=== PATIENT | female | born 1985 | race Caucasian/White ===

== ENCOUNTER 2017-05-02 07:02 | Emergency (ER) | payer BC ==
[2017-05-02 07:08] VITALS: O2SAT 100
--- NOTE | 2017-05-02 07:45 | ERPHSYRPT ---
- History of Present Illness Time Seen by Provider: 05/02/17 07:40 Source: patient Exam Limitations: no limitations Patient Subjective Stated Complaint: pt states she injured right foot while getting out of Jeep at work with morning. pt c/o pain to right heel. Triage Nursing Assessment: pt pink, warm,dry. no bruising or swelling to heel noted. pedal pulse strong. Physician History: The patient is a 31-year-old female who complains of hurting her right heel and the back part of her right foot when she jumped out of her jeep this morning. She thinks she may have landed on a rock. It hurts to walk on it. This happened about an hour ago. She did not take any Tylenol or ibuprofen for place ice on it. She has a past medical history of a ruptured ovarian cyst. Method of Injury: direct blow Occurred: just prior to arrival Quality: constant Severity of Pain-Max: mild Severity of Pain-Current: mild Lower Extremities Pain: foot: right Modifying Factors: Improves With: nothing Associated Symptoms: none Allergies/Adverse Reactions: prednisone Adverse Reaction (Verified 05/02/17 07:08) excessive weight gain Home Medications: Venlafaxine HCl [Effexor Xr] 150 mg PO DAILY 08/17/15 [History] Hx Tetanus, Diphtheria Vaccination/Date Given: Yes (up to date) Hx Influenza Vaccination/Date Given: Yes Hx Pneumococcal Vaccination/Date Given: No Immunizations Up to Date: Yes - Review of Systems Constitutional: No Fever, No Chills Eyes: No Symptoms Ears, Nose, & Throat: No Symptoms Respiratory: No Cough, No Dyspnea Cardiac: No Chest Pain, No Edema, No Syncope Abdominal/Gastrointestinal: No Abdominal Pain, No Nausea, No Vomiting, No Diarrhea Genitourinary Symptoms: No Dysuria Musculoskeletal: Injury Skin: No Symptoms, No Rash Neurological: No Dizziness, No Focal Weakness, No Sensory Changes Psychological: No Symptoms Endocrine: No Symptoms Hematologic/Lymphatic: No Symptoms Immunological/Allergic: No Symptoms All Other Systems: Reviewed and Negative - Past Medical History Pertinent Past Medical History: No Neurological History: No Pertinent History ENT History: No Pertinent History Cardiac History: No Pertinent History Respiratory History: No Pertinent History Endocrine Medical History: No Pertinent History Musculoskeletal History: No Pertinent History GI Medical History: No Pertinent History History: No Pertinent History Psycho-Social History: Anxiety, Depression Female Reproductive Disorders: No Pertinent History - Past Surgical History Past Surgical History: Yes Neuro Surgical History: No Pertinent History Cardiac: No Pertinent History Respiratory: No Pertinent History Gastrointestinal: No Pertinent History Genitourinary: No Pertinent History Musculoskeletal: Orthopedic Surgery Female Surgical History: No Pertinent History Other Surgical History: wrist - Social History Smoking Status: Current some day smoker How long have you smoked: 14 Exposure to second hand smoke: No Alcohol Use: Socially Drug Use: none Patient Lives Alone: No Significant Family History: no pertinent family hx - Female History Hx Last Menstrual Period: abnormal Hx Now: Yes (yes there could be possible) - Nursing Vital Signs Nursing Vital Signs: Initial Vital Signs Temperature 98.1 F 05/02/17 07:04 Pulse Rate 98 H 05/02/17 07:04 Respiratory Rate 20 05/02/17 07:04 Blood Pressure 143/73 05/02/17 07:04 O2 Sat by Pulse Oximetry 100 05/02/17 07:04 Pain Scale Pain Intensity 3 - Physical Exam General Appearance: alert Eyes, Ears, Nose, Throat Exam: moist mucous membranes Neck Exam: non-tender, supple Cardiovascular/Respiratory Exam: chest non-tender, normal breath sounds, regular rate/rhythm, no respiratory distress Gastrointestinal/Abdominal Exam: non-tender, guarding Back Exam: normal inspection, No vertebral tenderness Hips Exam: bilateral: non-tender, normal inspection Legs Exam: bilateral leg: non-tender, normal inspection Knees Exam: bilateral knee: non-tender, normal inspection Ankle Exam: bilateral ankle: non-tender, normal inspection Foot Exam: right foot: soft tissue tenderness, left foot: non-tender, normal inspection Neuro/Tendon Exam: normal sensation, normal motor functions Mental Status Exam: alert, oriented x 3, cooperative Skin Exam: normal color, warm, dry SpO2 Interpretation: normal SpO2: 100 Oxygen Delivery: Room Air - Radiology Exams Right Foot X-ray Interpretation: Teleradiologist Report, Negative, No Fracture (per DR Glass. ) Ordered Tests: Active Orders 24 hr Category Date Time Status Cold Application STAT Care 05/02/17 07:25 Active FOOT (MINIMUM 3 VIEWS) Stat Exams 05/02/17 07:47 Completed Medication Summary Discontinued Medications Generic Name Dose Route Start Last Admin Trade Name Freq PRN Reason Stop Dose Admin Ketorolac Tromethamine 60 mg 05/02/17 07:46 05/02/17 08:13 Toradol 30 Mg Injection IM 05/02/17 07:47 60 mg STAT ONE Administration Ketorolac Tromethamine Confirm 05/02/17 08:12 Toradol 30 Mg Injection Administered 05/02/17 08:13 Dose 60 mg .ROUTE .STK-MED ONE - Progress Progress: improved Counseled pt/family regarding: diagnosis, rad results - Departure Time of Disposition: 08:45 Departure Disposition: Home Clinical Impression: Right foot sprain Condition: Stable Critical Care Time: No Referrals: LALO MURILLO MD [Primary Care Provider] - Additional Instructions: You have a right foot sprain. You were given Toradol 60 mg IM in the ER. Continue with Tylenol and ibuprofen as needed. Follow-up as needed.
[2017-05-02] MEDS ORDERED: TORAdol 30 mg Injection IM ONE (07:46)
[2017-05-02] MEDS ORDERED: TORAdol 30 mg Injection ONE (08:12)
--- NOTE | 2017-05-02 08:36 | XRAY ---
Indication: Medial foot/heel pain following injury. Comparison: None 3 nonweightbearing views of the right foot demonstrates small heel spurs. No other bony, articular, or soft tissue abnormalities.
[2017-05-02 08:57] VITALS: BP 119/81; PULSE 88
== END 2017-05-02 08:57 | disposition home or self-care (01) ==
LOC: ED 07:02
DX: S93.601A Unspecified sprain of right foot, initial encounter (principal); Y93.39 Activity, other involving climbing, rappelling and jumping off
CPT/HCPCS: 73630; 96372; 99283; J1885

== ENCOUNTER 2018-02-03 20:22 | Emergency (ER) | payer OTHER ==
[2018-02-03] MEDS ORDERED: Zofran 4 MG/2 ML VIAL (21:05)
[2018-02-03] MEDS: Zofran 4 MG/2 ML VIAL IV (21:05)
[2018-02-03] MEDS ORDERED: Sodium Chloride 0.9% 1000 ML 1,000 ML ×2 (21:05→22:25)
[2018-02-03] MEDS: Sodium Chloride 0.9% 1000 ML 1,000 ML IV ×2 (21:06→22:31)
[2018-02-03 21:07] LABS: BASOPHIL % 0.2 % (0.0-0.4); Basophil (Absolute #) 0.02 (0-0.4); Eosinophil (Absolute #) 0 (0-0.5); Granulocyte Absolute (ANC) 11.31 (1.4-6.9); Hematocrit 47.7 % (35-47); Hemoglobin 16.7 gm/dl (12.0-16.0); Lymphocyte (Absolute #) 0.86 (1.0-4.6); Lymphocytes % 6.8 % (24.0-44.0); Mean Cell Volume 91.4 fl (78-100); Mean Platelet Volume 10.1 fl (6-9.5); Monocyte (Absolute #) 0.51 (0.0-1.3); Platelet Count 309 K/mm3 (150-450); Red Blood Count 5.22 M/mm3 (4.1-5.4); Red Cell Distribution Width 13.5 % (11.5-14.0); White Blood Count 12.7 K/mm3 (4.0-10.5)
[2018-02-03 21:10] LABS: Lactic Acid 1.7 (0.4-2.0)
[2018-02-03 21:23] LABS: ADD MANUAL DIFF? NO (NO); Mean Corpuscular Hemoglobin 31.9 pg (26-32)
[2018-02-03 21:31] LABS: ALKALINE PHOSPHATASE 75 U/L (38-126); AMYLASE 66 U/L (30-110); ANION GAP 23.7 MEQ/L (5-15); BLOOD UREA NITROGEN 18 mg/dL (7-17); CHLORIDE 97 mmol/L (98-107); Carbon Dioxide 22 mmol/L (22-30); Creatinine 1 0.74 mg/dL (0.52-1.04); EST GLOMERULAR FILTRATION RATE > 60.0 ML/MIN; Glucose 86 mg/dL (74-106); LIPASE 44 U/L (23-300); Potassium 4.4 mmol/L (3.5-5.1); SGOT/AST 40 U/L (14-36); SGPT/ALT 36 U/L (0-35); SODIUM 138 mmol/L (137-145); Total Protein 8.6 g/dL (6.3-8.2)
[2018-02-03 21:54] LABS: HCG QUALITATIVE,SERUM NEGATIVE (Negative)
[2018-02-03] MEDS ORDERED: TORAdol 30 mg Injection (22:25)
[2018-02-03] MEDS ORDERED: ROCEPHIN 1 Gm-D5w 50 ml Bag** 1 G/50 ML IVPB IV (22:25)
[2018-02-03] MEDS: ROCEPHIN 1 Gm-D5w 50 ml Bag** 1 G/50 ML IVPB IV (22:30)
[2018-02-03] MEDS: TORAdol 30 mg Injection IV (22:31)
[2018-02-03 22:55] LABS: Collection Type VOID
[2018-02-03 22:56] LABS: Appearance HAZY (CLEAR); Bacteria MODERATE /HPF (NEGATIVE); Bilirubin SMALL (NEGATIVE); Blood 250 Ery/ul (0-5); COMPLETE URINE MICROSCOPIC? YES; Epithelial Cells MODERATE /HPF (FEW); Glucose NEGATIVE (NEGATIVE); Ketones LARGE (NEGATIVE); Leukocyte Esterase NEGATIVE (NEGATIVE); Mucus MANY /HPF (NEGATIVE); Nitrite NEGATIVE (NEGATIVE); Protein,Urine Dip TRACE (Negative); Specific Gravity 1.025 (1.005-1.025); Urobilinogen NORMAL mg/dL (0-1)
[2018-02-03 22:59] LABS: ADD URINE CULTURE? YES (NO)
== END 2018-02-03 23:47 | disposition home or self-care (01) ==
LOC: ED 20:22
CPT/HCPCS: 36415; 80053; 81000; 82150; 83605; 83690; 84703; 85025; 87086; 96374; J0696; J1885; J2405

== ENCOUNTER 2018-08-26 08:08 | Emergency (ER) | payer MEDICAID, OTHER ==
[2018-08-26] MEDS ORDERED: DUONEB 0.5-3 MG/3 ml Neb IH ONE ×2 (08:14→08:27)
--- NOTE | 2018-08-26 08:17 | ERPHSYRPT ---
- History of Present Illness Time Seen by Provider: 08/26/18 08:12 Source: patient Exam Limitations: no limitations Physician History: 32 y/o white female, with no h/o asthma, presents with 5 day h/o cough, head congestion. this am at 0530 she was having sig soa. pts mother provided her with neb tx of albuterol. pt has h/o pneumonia in the past. denies cp and denies fever. no recent travel. no hemoptysis. no h/o blood clots. prednisone is not a true allergy. she had weight gain. pt has had solumedrol without problems in the past. Timing/Duration: day(s) (5), worse (this am) Activities at Onset: none Severity of Dyspnea-Max: moderate Severity of Dyspnea-Current: moderate Possible Cause: no prior episodes, illness exposure Modifying Factors: Improves With: albuterol nebulizer, coughing, deep breath Associated Symptoms: cough, No chest pain/discomfort, No fever, No loss of appetite, No hemoptysis, No calf pain, No dizziness, No heaviness, No lightheadedness Allergies/Adverse Reactions: prednisone Adverse Reaction (Verified 08/26/18 08:38) excessive weight gain Home Medications: Venlafaxine HCl [Effexor Xr] 150 mg PO DAILY 08/17/15 [History] Hx Tetanus, Diphtheria Vaccination/Date Given: Yes Hx Influenza Vaccination/Date Given: Yes Hx Pneumococcal Vaccination/Date Given: No - Review of Systems Constitutional: No Symptoms, No Fever Eyes: No Symptoms Ears, Nose, & Throat: No Symptoms Respiratory: Cough, Dyspnea, Wheezing, No Stridor Cardiac: No Symptoms, No Chest Pain, No Palpitations, No Syncope Abdominal/Gastrointestinal: No Symptoms, No Abdominal Pain, No Nausea, No Vomiting, No Diarrhea Genitourinary Symptoms: No Symptoms, No Dysuria, No Frequency, No Hematuria Musculoskeletal: No Symptoms, No Back Pain, No Fall, No Injury Skin: No Symptoms Neurological: No Symptoms Psychological: No Symptoms Endocrine: No Symptoms Hematologic/Lymphatic: No Symptoms Immunological/Allergic: No Symptoms All Other Systems: Reviewed and Negative - Past Medical History Pertinent Past Medical History: No Neurological History: No Pertinent History ENT History: No Pertinent History Cardiac History: No Pertinent History Respiratory History: No Pertinent History Endocrine Medical History: No Pertinent History Musculoskeletal History: No Pertinent History GI Medical History: No Pertinent History History: No Pertinent History Psycho-Social History: Anxiety, Depression Female Reproductive Disorders: No Pertinent History - Past Surgical History Past Surgical History: Yes Neuro Surgical History: No Pertinent History Cardiac: No Pertinent History Respiratory: No Pertinent History Gastrointestinal: No Pertinent History Genitourinary: No Pertinent History Musculoskeletal: Orthopedic Surgery Female Surgical History: No Pertinent History Other Surgical History: wrist - Social History Smoking Status: Current every day smoker How long have you smoked: 15 Exposure to second hand smoke: Yes Alcohol Use: Socially Drug Use: none Patient Lives Alone: No Significant Family History: no pertinent family hx - Nursing Vital Signs Nursing Vital Signs: Initial Vital Signs Pulse Rate 101 H 08/26/18 08:27 Respiratory Rate 28 H 08/26/18 08:27 O2 Sat by Pulse Oximetry 99 08/26/18 08:27 Pain Scale Pain Intensity 6 - Physical Exam General Appearance: moderate distress, alert, anxiety Eye Exam: PERRL/EOMI, eyes nml inspection Ears, Nose, Throat Exam: hearing grossly normal, normal ENT inspection Neck Exam: normal inspection, non-tender, supple, full range of motion Respiratory Exam: respiratory distress (mild), airway intact, diminished breath sounds, wheezing, No chest tenderness, No accessory muscle use, No rhonchi, No stridor Cardiovascular/Chest Exam: normal heart sounds, tachycardia Abdominal/Gastrointestinal Exam: soft, normal bowel sounds, No tenderness, No distention, No mass, No guarding, No rebound Rectal Exam: not done Extremity Exam: non-tender, normal range of motion, normal inspection Neurologic Exam: alert, oriented x 3, cooperative, converter supervisor 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 as tested Skin Exam: normal color, warm, dry Lymphatic Exam: No adenopathy SpO2 Interpretation: normal Oxygen Delivery: Room Air - Course Nursing assessment & vital signs reviewed: Yes Ordered Tests: Active Orders 24 hr Category Date Time Status Instructional Material Director STAT Care 08/26/18 08:24 Active IV Insertion STAT Care 08/26/18 08:23 Active Pulse Oximetry (ED) STAT Care 08/26/18 08:23 Active CHEST 1 VIEW (PORTABLE) Stat Exams 08/26/18 08:23 Taken CBC W DIFF Stat Lab 08/26/18 08:30 Completed CMP Stat Lab 08/26/18 08:30 Completed D-DIMER QUANTITATION Stat Lab 08/26/18 08:30 Completed Respiratory Nebulizer STAT RT 08/26/18 08:27 Completed Respiratory Therapy Assessment DAILY RT 08/26/18 08:27 Completed Medication Summary Discontinued Medications Generic Name Dose Route Start Last Admin Trade Name Blade PRN Reason Stop Dose Admin Hydrocodone Bitart/Acetaminophen Confirm 08/26/18 08:20 Hydrocodone-Acetamin 2.5-108/5 Ml Solution Administered 08/26/18 08:21 Dose 10 ml .ROUTE .STK-MED ONE Hydrocodone Bitart/Acetaminophen 10 ml 08/26/18 08:24 08/26/18 08:29 Hydrocodone-Acetamin 2.5-108/5 Ml Solution PO 08/26/18 08:25 10 ml STAT STA Administration Albuterol/Ipratropium Confirm 08/26/18 08:14 Duoneb 0.5-3 Mg/3 Ml Neb Administered 08/26/18 08:15 Dose 3 ml IH .STK-MED ONE Albuterol/Ipratropium 3 ml 08/26/18 08:27 08/26/18 08:20 Duoneb 0.5-3 Mg/3 Ml Neb IH 08/26/18 08:28 3 ml STAT ONE Administration Ceftriaxone Sodium/Dextrose 1 g in 50 mls @ 100 mls/hr 08/26/18 09:09 09:31 Rocephin 1 Gm-D5w 50 Ml Bag IV 08/26/18 09:38 100 mls/hr STAT STA 100 mls/hr Administration Ceftriaxone Sodium/Dextrose Confirm 08/26/18 09:27 Rocephin 1 Gm-D5w 50 Ml Bag Administered 08/26/18 09:28 Dose 1 g in 50 mls @ ud IV .STK-MED ONE Methylprednisolone Sodium Succinate Confirm 08/26/18 08:20 Solu-Medrol 125 Mg Administered 08/26/18 08:21 Dose 125 mg .ROUTE .STK-MED ONE Methylprednisolone Sodium Succinate 125 mg 08/26/18 08:23 08/26/18 08:29 Solu-Medrol 125 Mg IV 08/26/18 08:24 125 mg STAT ONE Administration Lab/Rad Data: Laboratory Result Diagrams 08/26/18 08:30 08/26/18 08:30 Laboratory Results 08/26/18 08/26/18 08/26/18 Range/Units 08:30 08:30 08:30 WBC (4.0-10.5) K/mm3 RBC (4.1-5.4) M/mm3 Hgb (12.0-16.0) gm/dl Hct (35-47) % MCV (78-100) fl MCH (26-32) pg MCHC (32-36) g/dl RDW (11.5-14.0) % Plt Count (150-450) K/mm3 MPV (6-9.5) fl Gran % (36.0-66.0) % Eos # (Auto) (0-0.5) Absolute Lymphs (auto) (1.0-4.6) Absolute Monos (auto) (0.0-1.3) Lymphocytes % (24.0-44.0) % Monocytes % (0.0-12.0) % Eosinophils % (0.00-5.0) % Basophils % (0.0-0.4) % Absolute Granulocytes (1.4-6.9) Basophils # (0-0.4) D-Dimer 231 (215-500) ng/mL Sodium 142 (137-145) mmol/L Potassium 3.8 (3.5-5.1) mmol/L Chloride 109 H (98-107) mmol/L Carbon Dioxide 23 (22-30) mmol/L Anion Gap 13.4 (5-15) MEQ/L BUN 7 (7-17) mg/dL Creatinine 0.65 (0.52-1.04) mg/dL Estimated GFR > 60.0 ML/MIN Glucose 104 (74-106) mg/dL Calcium 10.3 H (8.4-10.2) mg/dL Total Bilirubin 0.20 (0.2-1.3) mg/dL AST 26 (14-36) U/L ALT 22 (0-35) U/L Alkaline Phosphatase 80 (38-126) U/L Serum Total Protein 8.2 (6.3-8.2) g/dL Albumin 4.9 (3.5-5.0) g/dL Influenza Type A Ag NEGATIVE (NEGATIVE) Influenza Type B Ag NEGATIVE (NEGATIVE) RSV (PCR) NEGATIVE (Negative) 08/26/18 Range/Units 08:30 WBC 11.1 H (4.0-10.5) K/mm3 RBC 4.90 (4.1-5.4) M/mm3 Hgb 15.4 (12.0-16.0) gm/dl Hct 45.6 (35-47) % MCV 93.1 (78-100) fl MCH 31.4 (26-32) pg MCHC 33.8 (32-36) g/dl RDW 13.2 (11.5-14.0) % Plt Count 357 (150-450) K/mm3 MPV 10.2 H (6-9.5) fl Gran % 70.9 H (36.0-66.0) % Eos # (Auto) 0.59 H (0-0.5) Absolute Lymphs (auto) 2.05 (1.0-4.6) Absolute Monos (auto) 0.55 (0.0-1.3) Lymphocytes % 18.5 L (24.0-44.0) % Monocytes % 5.0 (0.0-12.0) % Eosinophils % 5.3 H (0.00-5.0) % Basophils % 0.3 (0.0-0.4) % Absolute Granulocytes 7.87 H (1.4-6.9) Basophils # 0.03 (0-0.4) D-Dimer (215-500) ng/mL Sodium (137-145) mmol/L Potassium (3.5-5.1) mmol/L Chloride (98-107) mmol/L Carbon Dioxide (22-30) mmol/L Anion Gap (5-15) MEQ/L BUN (7-17) mg/dL Creatinine (0.52-1.04) mg/dL Estimated GFR ML/MIN Glucose (74-106) mg/dL Calcium (8.4-10.2) mg/dL Total Bilirubin (0.2-1.3) mg/dL AST (14-36) U/L ALT (0-35) U/L Alkaline Phosphatase (38-126) U/L Serum Total Protein (6.3-8.2) g/dL Albumin (3.5-5.0) g/dL Influenza Type A Ag (NEGATIVE) Influenza Type B Ag (NEGATIVE) RSV (PCR) (Negative) - Progress Progress: improved, re-examined Air Movement: good Progress Note: 08/26/18 09:07 pt states she is breathing better. cxr- increased bronchial markings. no definite infiltrate. Blood Culture(s) Obtained: No Antibiotics given: Yes Counseled pt/family regarding: lab results, diagnosis, need for follow-up, rad results - Departure Time of Disposition: 10:43 Departure Disposition: Home Clinical Impression: Bronchitis Condition: Stable Critical Care Time: No Referrals: KARO ESTRADA [Primary Care Provider] - Additional Instructions: take medications as prescribed. follow up with primary doctor for further management. Prescriptions: Albuterol 8 gm Mdi Hfa [Ventolin Hfa MDI] 8 gm IH Q4H #1 hfa.aer.ad Azithromycin 250 mg [Zithromax 250 MG TABLET] 250 mg PO ZPACK #6 tablet Hydrocodone Bit/Acetaminophen [Hydrocodone-Acetaminophen Soln] 10 ml PO Q6H # 120 ml Methylprednisolone Packet [Medrol Dosepack] 4 mg PO UD #1 packet
[2018-08-26] MEDS ORDERED: solu-MEDROL 125 MG ONE (08:20)
[2018-08-26] MEDS ORDERED: HYDROCODONE-ACETAMIN 2.5-108/5 ML SOLUTION ONE (08:20)
[2018-08-26] MEDS ORDERED: solu-MEDROL 125 MG IV ONE (08:23)
[2018-08-26] MEDS ORDERED: HYDROCODONE-ACETAMIN 2.5-108/5 ML SOLUTION PO STA (08:24)
[2018-08-26 08:44] LABS: BASOPHIL % 0.3 % (0.0-0.4); Basophil (Absolute #) 0.03 (0-0.4); Eosinophil % 5.3 % (0.00-5.0); Eosinophil (Absolute #) 0.59 (0-0.5); Granulocyte Absolute (ANC) 7.87 (1.4-6.9); Granulocytes % 70.9 % (36.0-66.0); Hematocrit 45.6 % (35-47); Hemoglobin 15.4 gm/dl (12.0-16.0); Lymphocyte (Absolute #) 2.05 (1.0-4.6); Lymphocytes % 18.5 % (24.0-44.0); Mean Cell Volume 93.1 fl (78-100); Mean Corpuscular Hemoglobin 31.4 pg (26-32); Mean Corpuscular Hgb Concent. 33.8 g/dl (32-36); Mean Platelet Volume 10.2 fl (6-9.5); Monocyte (Absolute #) 0.55 (0.0-1.3); Platelet Count 357 K/mm3 (150-450); Red Cell Distribution Width 13.2 % (11.5-14.0); White Blood Count 11.1 K/mm3 (4.0-10.5)
[2018-08-26] MEDS ORDERED: ROCEPHIN 1 Gm-D5w 50 ml Bag** 1 G/50 ML IVPB IV STA (09:09)
[2018-08-26] MEDS ORDERED: ROCEPHIN 1 Gm-D5w 50 ml Bag** 1 G/50 ML IVPB IV ONE (09:27)
[2018-08-26 09:31] LABS: INFLUENZA A NEGATIVE (NEGATIVE); INFLUENZA B NEGATIVE (NEGATIVE); RESPIRATORY SYNCTIAL VIRUS NEGATIVE (Negative)
[2018-08-26 10:04] LABS: ALBUMIN 4.9 g/dL (3.5-5.0); ALKALINE PHOSPHATASE 80 U/L (38-126); ANION GAP 13.4 MEQ/L (5-15); BLOOD UREA NITROGEN 7 mg/dL (7-17); CHLORIDE 109 mmol/L (98-107); Calcium 10.3 mg/dL (8.4-10.2); Carbon Dioxide 23 mmol/L (22-30); Creatinine 1 0.65 mg/dL (0.52-1.04); Glucose 104 mg/dL (74-106); Potassium 3.8 mmol/L (3.5-5.1); SGOT/AST 26 U/L (14-36); SGPT/ALT 22 U/L (0-35); SODIUM 142 mmol/L (137-145); Total Protein 8.2 g/dL (6.3-8.2)
[2018-08-26 10:43] VITALS: BP 109/72; PULSE 90; O2SAT 95
--- NOTE | 2018-08-26 18:39 | XRAY ---
Indication: Cough and short of breath. Comparison: June 05, 2016. Portable chest again demonstrates normal heart, lungs, and bony thorax.
== END 2018-08-26 11:11 | disposition home or self-care (01) ==
LOC: ED 08:08
DX: J40 Bronchitis, not specified as acute or chronic (principal)
CPT/HCPCS: 36000; 36415; 71045; 80053; 85025; 85379; 87631; 93041; 94640; 96374; 99284; J0696; J2930; A9270-GY

== ENCOUNTER 2020-12-03 03:22 | Emergency (ER) | payer OTHER ==
[2020-12-03] MEDS ORDERED: BABY ASPIRIN 81 MG CHEW PO ONE (03:43)
--- NOTE | 2020-12-03 03:43 | ERPHSYRPT ---
- History of Present Illness Time Seen by Provider: 12/03/20 03:35 Historian: patient Exam Limitations: clinical condition Patient Subjective Stated Complaint: pt states she woke up with a high heart rate. states she has had chest paina nd shortness of breath with it. Triage Nursing Assessment: pt alert and oriented, answers questions approp. pt ambulatory with steady gait noted. respriations tachy, lungs cta. heart rate 130's sinus tach on monitor. pt tearful at times. skin pink warma nd dry. Physician History: This is a 35-year-old obese white female who is under a lot of stress and had a recent break-up (within the last 2 months) while long-term relationship. She had been in [place] in [place] and then the break-up occurred and she returned home. Patient woke up out of sleep with rapid heart rate and then began noticing she is having chest pain perioral numbness as well as numbness and tingling in her bilateral hands and fingers. Patient does have a history of sinus tachycardia. She has had no fevers no cough she is not short of breath. She did feel nauseated and had an episode of vomitus in the emergency department upon arrival. She has no abdominal pain. She has no urinary issues or symp toms. The chest pain is left anterior chest in location without radiation. It is a mild ache but present. Timing/Duration: today Activities at Onset: emotional stress, sleep Quality: aching, pressure Location: other (Left anterior chest wall) Chest Pain Radiation: no radiation Severity of Pain-Max: mild Severity of Pain-Current: mild Associated Symptoms: nausea, vomiting, palpitations, No abdominal pain, No shortness of breath, No cough, No diaphoresis Nitro Today/Relief: no nitro taken today Aspirin Treatment Today: no aspirin today Allergies/Adverse Reactions: prednisone Adverse Reaction (Verified 12/03/20 03:36) excessive weight gain Home Medications: Hydroxyzine HCl 25 mg [Atarax 25 mg] 25 mg PO BID 12/03/20 [History] Metoprolol Succinate 25 mg Xl* [Toprol-Xl 25MG Tablets] 25 mg PO DAILY 12/03/20 [History] Hx Tetanus, Diphtheria Vaccination/Date Given: Yes Hx Influenza Vaccination/Date Given: No Hx Pneumococcal Vaccination/Date Given: No Immunizations Up to Date: Yes Travel Risk - International Travel Have you traveled outside of the country in past 3 weeks: No - Coronavirus Screening Are you exhibiting any of the following symptoms?: No Close contact with a COVID-19 positive Pt in past 14-21 Days: No - Review of Systems Constitutional: No Symptoms Eyes: No Symptoms Ears, Nose, & Throat: No Symptoms Respiratory: No Symptoms Cardiac: Chest Pain, Palpitations Abdominal/Gastrointestinal: Nausea, Vomiting, No Abdominal Pain, No Diarrhea Genitourinary Symptoms: No Symptoms Musculoskeletal: No Symptoms Skin: No Symptoms Neurological: No Symptoms Psychological: No Symptoms Endocrine: No Symptoms Hematologic/Lymphatic: No Symptoms Immunological/Allergic: No Symptoms All Other Systems: Reviewed and Negative - Past Medical History Pertinent Past Medical History: No Neurological History: No Pertinent History ENT History: No Pertinent History Cardiac History: Other Respiratory History: No Pertinent History Endocrine Medical History: No Pertinent History Musculoskeletal History: No Pertinent History GI Medical History: No Pertinent History History: No Pertinent History Psycho-Social History: Anxiety, Depression Female Reproductive Disorders: No Pertinent History Other Medical History: tachycardia - Past Surgical History Past Surgical History: Yes Neuro Surgical History: No Pertinent History Cardiac: No Pertinent History Respiratory: No Pertinent History Gastrointestinal: No Pertinent History Genitourinary: No Pertinent History Musculoskeletal: Orthopedic Surgery Female Surgical History: No Pertinent History Other Surgical History: lt wrist, lt ankle - Social History Smoking Status: Current every day smoker How long have you smoked: 15 Exposure to second hand smoke: Yes Alcohol Use: Socially Drug Use: none Patient Lives Alone: No Significant Family History: no pertinent family hx - Female History Hx Last Menstrual Period: iud- no periods Hx Now: No - Nursing Vital Signs Nursing Vital Signs: Initial Vital Signs Temperature 98.6 F 12/03/20 03:25 Pulse Rate 130 H 12/03/20 03:25 Respiratory Rate 24 12/03/20 03:25 Blood Pressure 140/106 12/03/20 03:25 O2 Sat by Pulse Oximetry 99 12/03/20 03:25 Pain Scale Pain Intensity 2 - Physical Exam General Appearance: mild distress, alert, anxiety, obese Eye Exam: PERRL/EOMI, eyes nml inspection Ears, Nose, Throat Exam: normal ENT inspection, moist mucous membranes Neck Exam: normal inspection, non-tender, supple, full range of motion Respiratory Exam: normal breath sounds, chest tenderness, lungs clear, airway intact, No respiratory distress Cardiovascular Exam: tachycardia Gastrointestinal/Abdomen Exam: soft, normal bowel sounds, No tenderness Pelvic Exam: not done Rectal Exam: not done Extremity Exam: normal inspection, normal range of motion, pelvis stable Neurologic Exam: alert, oriented x 3, cooperative, dispatch 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 II-XII nml as tested, normal mood/affect, nml cerebellar function, nml station & gait, sensation nml Skin Exam: normal color, warm, dry Lymphatic Exam: No adenopathy SpO2 Interpretation: normal SpO2: 99 O2 Delivery: Room Air - Course Nursing assessment & vital signs reviewed: Yes EKG Interpreted by Me: RATE (135), Sinus Tach, NORMAL AXIS, NORMAL INTERVALS, NORMAL QRS, Other (No comparison EKG) Ordered Tests: Active Orders 24 hr Category Date Time Status Home Economist STAT Care 12/03/20 03:44 Active EKG-ER Only STAT Care 12/03/20 03:43 Active IV Insertion STAT Care 12/03/20 03:43 Active Pulse Oximetry (ED) STAT Care 12/03/20 03:43 Active CBC W DIFF Stat Lab 12/03/20 04:10 Completed CMP Stat Lab 12/03/20 04:10 Completed D-DIMER QUANTITATIVE Stat Lab 12/03/20 04:10 Completed HCG,QUALITATIVE URINE Stat Lab 12/03/20 03:44 Completed NT PRO BNP Stat Lab 12/03/20 04:10 Completed T4 (Thyroxine) Stat Lab 12/03/20 03:46 Received TROPONIN Q3H Lab 12/03/20 04:10 Completed TROPONIN Q3H Lab 12/03/20 06:45 Ordered TROPONIN Q3H Lab 12/03/20 09:45 Ordered TROPONIN Q3H Lab 12/03/20 12:45 Ordered TROPONIN Q3H Lab 12/03/20 15:45 Ordered TSH [TSH, 3RD Generation] Stat Lab 12/03/20 03:46 Received Urine Triage Profile Stat Lab 12/03/20 03:44 Completed Medication Summary Generic Name Dose Route Start Last Admin Trade Name Freq PRN Reason Stop Dose Admin Sodium Chloride 1,000 mls @ 100 mls/hr 12/03/20 04:00 12/03/20 03:59 Sodium Chloride 0.9% 1000 Ml IV 01/02/21 03:59 100 mls/hr .Q10H MANNIE Administration Discontinued Medications Generic Name Dose Route Start Last Admin Trade Name Freq PRN Reason Stop Dose Admin Aspirin 324 mg 12/03/20 03:43 12/03/20 04:00 Baby Aspirin 81 Mg Chew PO 12/03/20 03:44 324 mg STAT ONE Administration Aspirin Confirm 12/03/20 03:53 Baby Aspirin 81 Mg Chew Administered 12/03/20 03:54 Dose 324 mg .ROUTE .STK-MED ONE Lorazepam 1 mg 12/03/20 03:46 12/03/20 03:59 Ativan 2 Mg/1 Ml Vial IV 12/03/20 03:47 1 mg STAT ONE Administration Lorazepam Confirm 12/03/20 03:53 Ativan 2 Mg/1 Ml Vial Administered 12/03/20 03:54 Dose 2 mg .ROUTE .STK-MED ONE Metoprolol Tartrate 5 mg 12/03/20 05:43 12/03/20 05:51 Lopressor 5 Mg/5 Ml Injection IV 12/03/20 05:44 5 mg STAT ONE Administration Metoprolol Tartrate Confirm 12/03/20 05:45 Lopressor 5 Mg/5 Ml Injection Administered 12/03/20 05:46 Dose 5 mg IV .STK-MED ONE Ondansetron HCl 4 mg 12/03/20 03:53 12/03/20 03:59 Zofran 4 Mg/2 Ml Vial IV 12/03/20 03:54 4 mg STAT ONE Administration Ondansetron HCl Confirm 12/03/20 03:54 Zofran 4 Mg/2 Ml Vial Administered 12/03/20 03:55 Dose 4 mg .ROUTE .STK-MED ONE Lab/Rad Data: Laboratory Result Diagrams 12/03/20 04:10 12/03/20 04:10 Laboratory Results 12/03/20 12/03/20 12/03/20 Range/Units 04:10 04:10 04:10 WBC (4.0-10.5) K/mm3 RBC (4.1-5.4) M/mm3 Hgb (12.0-16.0) gm/dl Hct (35-47) % MCV (78-100) fl MCH (26-32) pg MCHC (32-36) g/dl RDW (11.5-14.0) % Plt Count (150-450) K/mm3 MPV (7.5-11.0) fl Gran % (36.0-66.0) % Eos # (Auto) (0-0.5) Absolute Lymphs (auto) (1.0-4.6) Absolute Monos (auto) (0.0-1.3) Lymphocytes % (24.0-44.0) % Monocytes % (0.0-12.0) % Eosinophils % (0.00-5.0) % Basophils % (0.0-0.4) % Absolute Granulocytes (1.4-6.9) Basophils # (0-0.4) D-Dimer < 215 L (215-500) ng/mL Sodium 137 (137-145) mmol/L Potassium 3.4 L (3.5-5.1) mmol/L Chloride 96 L (98-107) mmol/L Carbon Dioxide 25 (22-30) mmol/L Anion Gap 19.4 H (5-15) MEQ/L BUN 12 (7-17) mg/dL Creatinine 0.76 (0.52-1.04) mg/dL Estimated GFR > 60.0 ML/MIN Glucose 132 H (74-106) mg/dL Calcium 9.5 (8.4-10.2) mg/dL Total Bilirubin 1.00 (0.2-1.3) mg/dL AST 120 H (14-36) U/L ALT 76 H (0-35) U/L Alkaline Phosphatase 108 (38-126) U/L Troponin I < 0.012 (0.000-0.034) ng/mL NT-Pro-B Natriuret Pep 59.3 (0-450) pg/mL Serum Total Protein 8.0 (6.3-8.2) g/dL Albumin 4.6 (3.5-5.0) g/dL Urine HCG, Qual (Negative) Urine Opiates Level (NEGATIVE) Ur Methadone (NEGATIVE) Urine Barbiturates (NEGATIVE) Ur Phencyclidine (PCP) (NEGATIVE) Urine Amphetamine (NEGATIVE) U Benzodiazepine Level (NEGATIVE) Urine Cocaine (NEGATIVE) Urine Marijuana (THC) (NEGATIVE) 12/03/20 12/03/20 12/03/20 Range/Units 04:10 03:44 03:44 WBC 9.3 (4.0-10.5) K/mm3 RBC 4.45 (4.1-5.4) M/mm3 Hgb 15.8 (12.0-16.0) gm/dl Hct 44.2 (35-47) % MCV 99.3 (78-100) fl MCH 35.5 H (26-32) pg MCHC 35.7 (32-36) g/dl RDW 13.3 (11.5-14.0) % Plt Count 298 (150-450) K/mm3 MPV 9.4 (7.5-11.0) fl Gran % 75.3 H (36.0-66.0) % Eos # (Auto) 0.14 (0-0.5) Absolute Lymphs (auto) 1.51 (1.0-4.6) Absolute Monos (auto) 0.62 (0.0-1.3) Lymphocytes % 16.2 L (24.0-44.0) % Monocytes % 6.7 (0.0-12.0) % Eosinophils % 1.5 (0.00-5.0) % Basophils % 0.3 (0.0-0.4) % Absolute Granulocytes 7.01 H (1.4-6.9) Basophils # 0.03 (0-0.4) D-Dimer (215-500) ng/mL Sodium (137-145) mmol/L Potassium (3.5-5.1) mmol/L Chloride (98-107) mmol/L Carbon Dioxide (22-30) mmol/L Anion Gap (5-15) MEQ/L BUN (7-17) mg/dL Creatinine (0.52-1.04) mg/dL Estimated GFR ML/MIN Glucose (74-106) mg/dL Calcium (8.4-10.2) mg/dL Total Bilirubin (0.2-1.3) mg/dL AST (14-36) U/L ALT (0-35) U/L Alkaline Phosphatase (38-126) U/L Troponin I (0.000-0.034) ng/mL NT-Pro-B Natriuret Pep (0-450) pg/mL Serum Total Protein (6.3-8.2) g/dL Albumin (3.5-5.0) g/dL Urine HCG, Qual NEGATIVE (Negative) Urine Opiates Level NEGATIVE (NEGATIVE) Ur Methadone NEGATIVE (NEGATIVE) Urine Barbiturates NEGATIVE (NEGATIVE) Ur Phencyclidine (PCP) NEGATIVE (NEGATIVE) Urine Amphetamine NEGATIVE (NEGATIVE) U Benzodiazepine Level NEGATIVE (NEGATIVE) Urine Cocaine NEGATIVE (NEGATIVE) Urine Marijuana (THC) POSITIVE (NEGATIVE) - Departure Departure Disposition: Home Clinical Impression: Anxiety, Tachycardia Condition: Stable Critical Care Time: Yes Critical Care Time(excluding separately billable procedures): Critical 30-74 mins Referrals: RAYMOND NELSON NP [Primary Care Provider] - Additional Instructions: Take your medication as prescribed. Call your tube cleaning operator today to make a rrangements for follow-up appointment. Follow-up with your primary care doctor at your scheduled appointment in the next couple days and discuss management of stress/anxiety and insomnia. Prescriptions: Ondansetron ODT 4 MG [Zofran Odt 4 mg] 4 mg PO Q6H PRN PRN #10 tab.rapdis PRN Reason: Vomiting
[2020-12-03] MEDS ORDERED: Ativan 2 MG/1 ML VIAL IV ONE (03:46)
[2020-12-03] MEDS ORDERED: Zofran 4 MG/2 ML VIAL IV ONE (03:53)
[2020-12-03] MEDS ORDERED: BABY ASPIRIN 81 MG CHEW ONE (03:53)
[2020-12-03] MEDS ORDERED: Ativan 2 MG/1 ML VIAL ONE (03:53)
[2020-12-03] MEDS ORDERED: Sodium Chloride 0.9% 1000 ML 1,000 ML ONE (03:54)
[2020-12-03] MEDS ORDERED: Zofran 4 MG/2 ML VIAL ONE (03:54)
[2020-12-03] MEDS ORDERED: Sodium Chloride 0.9% 1000 ML 1,000 ML IV SCH (04:00)
[2020-12-03 04:21] LABS: Absolute Neutrophil Ct (ANC) 7.01 (1.4-6.9); BASOPHIL % 0.3 % (0.0-0.4); Basophil (Absolute #) 0.03 (0-0.4); Eosinophil % 1.5 % (0.00-5.0); Eosinophil (Absolute #) 0.14 (0-0.5); Hematocrit 44.2 % (35-47); Hemoglobin 15.8 gm/dl (12.0-16.0); Lymphocyte (Absolute #) 1.51 (1.0-4.6); Lymphocytes % 16.2 % (24.0-44.0); Mean Cell Volume 99.3 fl (78-100); Mean Corpuscular Hemoglobin 35.5 pg (26-32); Mean Corpuscular Hgb Concent. 35.7 g/dl (32-36); Mean Platelet Volume 9.4 fl (7.5-11.0); Monocyte (Absolute #) 0.62 (0.0-1.3); Monocytes % 6.7 % (0.0-12.0); Neutrophil % 75.3 % (36.0-66.0); Platelet Count 298 K/mm3 (150-450); Red Blood Count 4.45 M/mm3 (4.1-5.4); Red Cell Distribution Width 13.3 % (11.5-14.0); White Blood Count 9.3 K/mm3 (4.0-10.5)
[2020-12-03 04:31] LABS: Amphetamine,Urine NEGATIVE (NEGATIVE); Barbiturate,Urine NEGATIVE (NEGATIVE); Benzodiazepine,Urine NEGATIVE (NEGATIVE); Cocaine,Urine NEGATIVE (NEGATIVE); Methadone,Urine NEGATIVE (NEGATIVE); Opiate,Urine NEGATIVE (NEGATIVE); PCP,Urine NEGATIVE (NEGATIVE); THC,Urine POSITIVE (NEGATIVE)
[2020-12-03 04:36] LABS: ALBUMIN 4.6 g/dL (3.5-5.0); ALKALINE PHOSPHATASE 108 U/L (38-126); ANION GAP 19.4 MEQ/L (5-15); BLOOD UREA NITROGEN 12 mg/dL (7-17); CHLORIDE 96 mmol/L (98-107); Calcium 9.5 mg/dL (8.4-10.2); Carbon Dioxide 25 mmol/L (22-30); Creatinine 1 0.76 mg/dL (0.52-1.04); EST GLOMERULAR FILTRATION RATE > 60.0 ML/MIN; Glucose 132 mg/dL (74-106); NT PRO BNP 59.3 pg/mL (0-450); Potassium 3.4 mmol/L (3.5-5.1); SGOT/AST 120 U/L (14-36); SGPT/ALT 76 U/L (0-35); SODIUM 137 mmol/L (137-145)
[2020-12-03] MEDS ORDERED: LOPRESSOR 5 MG/5 ML INJECTION IV ONE ×2 (05:43→05:45)
[2020-12-03 07:12] VITALS: BP 140/87; PULSE 101; O2SAT 98
[2020-12-03] MEDS ORDERED: ZOFRAN ODT 4 MG PO ONE ×2 (08:07→08:13)
== END 2020-12-03 07:42 | disposition home or self-care (01) ==
LOC: ED 03:22
DX: F41.9 Anxiety disorder, unspecified (principal); R00.0 Tachycardia, unspecified; R07.89 Other chest pain; Z79.899 Other long term (current) drug therapy; R11.2 Nausea with vomiting, unspecified
CPT/HCPCS: 36000; 36415; 80053; 80307; 83880; 84436; 84443; 84484; 84703; 85025; 85379; 93005; 93041; 94760; 96374; 96375; 99284; 99291; J2060; J2405; Q0162; A9270-GY

== ENCOUNTER 2021-11-24 08:23 | Day surgery (SDC) | payer OTHER ==
[2021-11-24] MEDS ORDERED: CEFAZOLIN 2 GM-D5W BAG** 2 GM/50 ML ML IV SCH (08:30)
[2021-11-24] MEDS ORDERED: Lactated Ringers 1,000 ML IV ONE (08:31)
[2021-11-24] MEDS ORDERED: Lactated Ringers 1,000 ML IV SCH (09:30)
[2021-11-24 09:50] LABS: ANION GAP 7.6 MEQ/L (5-15); BLOOD UREA NITROGEN 7 mg/dL (7-17); CHLORIDE 101 mmol/L (98-107); Carbon Dioxide 31 mmol/L (22-30); Creatinine 1 0.51 mg/dL (0.52-1.04); EST GLOMERULAR FILTRATION RATE > 60.0 ML/MIN; Glucose 107 mg/dL (74-106); Potassium 3.9 mmol/L (3.5-5.1); SODIUM 136 mmol/L (137-145)
[2021-11-24] MEDS ORDERED: SUBLIMAZE 100 MCG/2 ML ONE ×3 (10:23→11:10)
[2021-11-24] MEDS ORDERED: Xylocaine-Mpf 2% 5 Ml Vial ONE (10:23)
[2021-11-24] MEDS ORDERED: DIPRIVAN 200 MG/20 ML IV ONE (10:23)
[2021-11-24] MEDS ORDERED: Versed 2 MG/2 ML Injection ONE (10:23)
[2021-11-24] MEDS ORDERED: Zofran 4 MG/2 ML VIAL ONE (10:27)
[2021-11-24 12:29] VITALS: BP 113/66; PULSE 80; O2SAT 96
--- NOTE | 2021-11-24 14:30 | OP ---
SURGERY DATE/TIME: 11/24/2021 1035 PREOPERATIVE DIAGNOSIS: Retained intrauterine device. POSTOPERATIVE DIAGNOSIS: Retained intrauterine device. PROCEDURE: Hysteroscopy with removal of intrauterine device. SURGEON: Abe Hickman D.O. KEY ACCOUNT DIRECTOR: Melissa Zambrano surgical supervisor. ANESTHESIA: General. ESTIMATED BLOOD LOSS: Minimal. COMPLICATIONS: None. INDICATIONS: The risks, benefits, indications and alternatives of the procedure were reviewed with the patient prior to the procedure. The patient understood the risk of infection, bleeding, bowel injury, bladder injury, uterine perforation, pelvic infection associated with the surgery however desires to have this surgery as a possible means to alleviate her current medical condition. DESCRIPTION OF PROCEDURE AND FINDINGS: At this point the patient is taken to the operating room, given general sedation, placed in dorsal lithotomy position, prepped and draped in the usual sterile fashion. A weighted speculum is then placed in the patient's vagina and the anterior lip of the cervix was grasped with a single tooth tenaculum. Endocervical dilators were advanced through the endocervical canal as a means to dilate the cervix and at this point a 5 mm hysteroscope was then placed through the endocervical region where visualization revealed her to have an intrauterine device located in the fundal region. From this point hysteroscope was removed and then polyp forceps was then introduced through the endocervical canal where the polyp forceps was taken toward the fundal region and grasped the intrauterine device without complication and removed it without complication. From this point, after removal there was minimal bleeding that was noted. All instruments were removed from the patient's vaginal region. The patient was then taken out of dorsal lithotomy position and was then taken to the recovery room in stable condition. All instruments and laps were accounted for x2.
== END 2021-11-24 12:37 | disposition home or self-care (01) ==
LOC: SDC 08:23
PROVIDERS: ATTEND Obstetrics & Gynecology
DX: Z30.432 Encounter for removal of intrauterine contraceptive device (principal)
CPT/HCPCS: 36415; 58562; 80048; 84703; J0690; J2250; J2405; J2704; J3010

== ENCOUNTER 2022-02-02 05:54 | Day surgery (SDC) | payer OTHER ==
[2022-02-02] MEDS ORDERED: CEFAZOLIN 2 GM-D5W BAG** 2 GM/50 ML ML IV SCH (06:30)
[2022-02-02] MEDS ORDERED: Lactated Ringers 1,000 ML IV SCH (06:30)
[2022-02-02] MEDS ORDERED: Zofran 4 MG/2 ML VIAL ONE (06:46)
[2022-02-02] MEDS ORDERED: SUBLIMAZE 100 MCG/2 ML ONE ×3 (06:46→08:10)
[2022-02-02] MEDS ORDERED: Zemuron 100 MG/10 ML ONE (06:46)
[2022-02-02] MEDS ORDERED: DIPRIVAN 200 MG/20 ML IV ONE (06:46)
[2022-02-02] MEDS ORDERED: Versed 2 MG/2 ML Injection ONE (06:46)
[2022-02-02] MEDS ORDERED: Decadron 4 MG INJ ONE (06:46)
[2022-02-02] MEDS ORDERED: BRIDION 200MG/2ML IV ONE (06:46)
[2022-02-02] MEDS ORDERED: Sensorcaine 0.25% 10 ML ONE (06:56)
[2022-02-02] MEDS ORDERED: Lactated Ringers 1,000 ML IV ONE (06:56)
[2022-02-02] MEDS ORDERED: TORAdol 30 mg Injection ONE (07:37)
[2022-02-02] MEDS ORDERED: Hydromorphone 1 mg/ml Injection ONE ×2 (07:51→08:01)
[2022-02-02 11:17] VITALS: O2SAT 94
[2022-02-02 11:20] VITALS: BP 145/99; PULSE 91
[2022-02-02 13:54] LABS: Appearance CLEAR (CLEAR); Bilirubin NEGATIVE (NEGATIVE); Blood NEGATIVE Ery/ul (0-5); Glucose NEGATIVE (NEGATIVE); Ketones NEGATIVE (NEGATIVE); Leukocyte Esterase NEGATIVE (NEGATIVE); Nitrite NEGATIVE (NEGATIVE); Ph 5.5 (5-6); Protein,Urine Dip NEGATIVE (Negative); Specific Gravity >=1.030 (1.005-1.025); Urobilinogen 0.2 mg/dL (0-1)
[2022-02-02 13:55] LABS: Epithelial Cells RARE /HPF (FEW); Mucus SLIGHT /HPF (NEGATIVE)
--- NOTE | 2022-02-03 09:31 | OP ---
SURGERY DATE/TIME: 02/02/2022 0700 PREOPERATIVE DIAGNOSIS: Contraceptive management and left lower quadrant pain. POSTOPERATIVE DIAGNOSIS: Contraceptive management and left lower quadrant pain with left side abdominopelvic adhesion. PROCEDURE: Laparoscopic tubal sterilization, lysis of pelvic adhesion. SURGEON: Abe Hickman D.O. FAST FOOD MANAGER: Anthony Gramajo director medical surgical. ANESTHESIA: General. ESTIMATED BLOOD LOSS: Minimal. COMPLICATIONS: None. INDICATIONS: The risks, benefits, indications and alternatives of the procedure were reviewed with the patient prior to the procedure. The patient understood the risk of infection, bleeding, bowel injury, bladder injury, ureteral injury, uterine perforation, pelvic infection associated with the surgery and desires to have this surgery as a possible means to alleviate her current medical condition. DESCRIPTION OF PROCEDURE AND FINDINGS: At this point the patient is taken to the operating room, given general sedation, placed in dorsal lithotomy position, prepped and draped in the usual sterile fashion. A weighted speculum is then placed in the patient's vagina and the anterior lip of the cervix is grasped with a single tooth tenaculum. Endocervical dilators were advanced through the endocervical canal as a means to dilate the uterus. A uterine manipulator was then placed in through the endocervical canal as a means to elevate the uterus. Attention was then turned to the patient's abdomen where a 5 mm skin incision was made in the umbilical fold. A 5 mm trocar and sleeve were advanced under direct visualization where pneumoperitoneum was obtained with 4 liters of CO2 gas. An additional incision was made approximately 2 cm above the symphysis pubis where an 8 mm incision was made and an 8 mm trocar and sleeve were advanced under direct visualization. A survey of the patient's pelvic region and abdominal region appeared to be normal. However, there appeared to be omental adhesions located between the left bowel and left abdominal side wall. At this point initially the right fallopian tube was identified and the Falope ring applicator was placed on the right fallopian tube where a good knuckle of tube was taken and the Falope was displaced on its side without complication. The same procedure was performed on the left side. The left tube was identified on the isthmic region. A good knuckle of tube was taken and the Falope ring applicator was used to displace the Falope ring on its side without complication. Hemostasis was obtained. From this point, a LigaSure was then used to lyse the adhesion between the left abdominopelvic side wall from its side and good hemostasis was obtained. From this point, all instruments were removed from the patient's abdominal region and the incisions were closed with 4-0 Monocryl suture. At this point, the patient was then taken out of anesthesia and was then taken to the recovery room in stable condition. All instruments and laps were accounted for x2.
== END 2022-02-02 09:40 | disposition home or self-care (01) ==
LOC: SDC 05:54
PROVIDERS: ATTEND Obstetrics & Gynecology
DX: Z30.9 Encounter for contraceptive management, unspecified (principal); R10.32 Left lower quadrant pain; K66.0 Peritoneal adhesions (postprocedural) (postinfection)
CPT/HCPCS: 58671; 81001; 84703; 87086; J0690; J1100; J1170; J1885; J2250; J2405; J2704; J3010

== ENCOUNTER 2022-06-15 11:16 | Day surgery (SDC) | payer OTHER ==
[2022-06-15 11:08] VITALS: BP 160/92; PULSE 91; O2SAT 95
[~2022-06-15 11:16] MED LIST: CEFAZOLIN 2 GM-D5W BAG** 2 GM/50 ML ML IV ONE; CEFAZOLIN 2 GM-D5W BAG** 2 GM/50 ML ML IV SCH; DIPRIVAN 200 MG/20 ML IV ONE; Decadron 4 MG INJ ONE; Lactated Ringers 1,000 ML IV ONE; Lactated Ringers 1,000 ML IV SCH; Pre-Attached Lta Kit TP ONE; Quelicin Fliptop 200 MG/10 ML ONE; Reglan 10 MG/2 ML ONE; SUBLIMAZE 100 MCG/2 ML ONE; SUBLIMAZE 250 MCG/5 ML ONE; TORAdol 30 mg Injection ONE; Versed 2 MG/2 ML Injection ONE; Xylocaine-Mpf 2% 5 Ml Vial ONE; Zofran 4 MG/2 ML VIAL ONE
--- NOTE | 2022-06-16 08:18 | OP ---
AMENDED REPORT: SURGERY DATE/TIME: 06/15/2022 0918 PREOPERATIVE DIAGNOSIS: Menorrhagia with failed medical management. POSTOPERATIVE DIAGNOSIS: Menorrhagia with failed medical management. PROCEDURE: Hysteroscopy D&C with attempted NovaSure ablation. SURGEON: Abe Hickman D.O. OTHER SPORTS OFFICIAL: Anthony Gramajo medical or surgical instrument maker. ANESTHESIA: General. ESTIMATED BLOOD LOSS: Minimal. COMPLICATIONS: None. INDICATIONS: The risks, benefits, indications and alternatives of the procedure were reviewed with the patient prior to the procedure. The patient understood the risk of infection, bleeding, bowel injury, bladder injury, ureteral injury, uterine perforation, pelvic infection and thromboembolic disorder associated with the surgery however desires to have this surgery as a possible means to alleviate her current medical condition. DESCRIPTION OF PROCEDURE AND FINDINGS: At this point the patient is taken to the operating room, given general sedation, placed in the dorsal lithotomy position, prepped and draped in the usual sterile fashion. A weighted speculum is then placed in the patient's vagina and the anterior lip of the cervix was grasped with a single tooth tenaculum. Endocervical dilators were advanced through the endocervical canal as a means to dilate the cervix and the uterus was sounded to approximately 6.5 cm. From this point, a 5 mm hysteroscope was then placed into the fundus of the uterus where visualization appeared to be within normal limits with a small, tiny polypoid lesion located in the fundal region approximately 0.5 x 0.5 cm. From this point the hysteroscope was removed and the curette was then placed into the fundus of the uterus and curettage performed in all quadrants of the uterus retrieving a mild to moderate amount of tissue. From this point the curette was removed. The NovaSure instrument was then taken through endocervical region towards the fundal region and retracted approximately 1 cm with multiple lengths of the NovaSure the width never took and did not engage properly. After multiple attempts with the NovaSure with it not engaging properly the instrument was removed from the uterine cavity and all subsequent instruments were removed from the patient's vaginal region as well. From this point all instruments were removed. The patient was then taken out of the dorsal lithotomy position. The patient was then taken out of anesthesia and was then taken to the recovery room in stable condition. All instruments and laps were accounted for x2.
== END 2022-06-15 11:30 | disposition home or self-care (01) ==
LOC: SDC 11:16
PROVIDERS: ATTEND Obstetrics & Gynecology
DX: N92.0 Excessive and frequent menstruation with regular cycle (principal); Z91.19 Patient's noncompliance with other medical treatment and regimen
CPT/HCPCS: 81025; J0330; J0690; J1100; J1885; J2250; J2405; J2704; J3010

== ENCOUNTER 2022-07-20 08:42 | Observation (INO) | payer OTHER ==
[2022-08-17] MEDS ORDERED: EXPAREL 133 MG/10 ML VIAL IJ ONE (07:26)
[2022-08-17] MEDS ORDERED: Transderm Scop 1.5MG Patch TOP PRN (07:34)
[2022-08-17] MEDS ORDERED: Reglan 10 MG/2 ML IV ONE (07:34)
[2022-08-17] MEDS ORDERED: Versed 2 MG/2 ML Injection IV PRN (07:34)
[2022-08-17] MEDS ORDERED: Pepcid 20 MG VIAL IV ONE (07:42)
[2022-08-17] MEDS ORDERED: MEFOXIN 2 GM PREMIX** 2 GM/50 ML ML IV SCH (08:00)
[2022-08-17] MEDS ORDERED: Lactated Ringers 1,000 ML IV SCH (08:00)
[2022-08-17 08:20] LABS: Absolute Neutrophil Ct (ANC) 2.84 x10^3/uL (1.4-6.9); Basophil (Absolute #) 0.02 x10^3/uL (0-0.4); Eosinophil % 4.2 % (0.00-5.0); Hematocrit 39.8 % (35-47); Hemoglobin 13.6 g/dL (12.0-16.0); Lymphocyte (Absolute #) 1.41 x10^3/uL (1.0-4.6); Lymphocytes % 29.4 % (24.0-44.0); Mean Cell Volume 97.5 fL (78-100); Mean Corpuscular Hemoglobin 33.3 pg (26-32); Mean Corpuscular Hgb Concent. 34.2 g/dL (32-36); Mean Platelet Volume 10.3 fL (7.5-11.0); Monocyte (Absolute #) 0.31 x10^3/uL (0.0-1.3); Monocytes % 6.5 % (0.0-12.0); Neutrophil % 59.1 % (36.0-66.0); Platelet Count 196 x10^3/uL (150-450); Red Blood Count 4.08 x10^6/uL (4.1-5.4); White Blood Count 4.8 x10^3/uL (4.0-10.5)
[2022-08-17 08:44] LABS: ALBUMIN 4.2 g/dL (3.5-5.0); ALKALINE PHOSPHATASE 82 U/L (38-126); BLOOD UREA NITROGEN 12 mg/dL (7-17); CHLORIDE 104 mmol/L (98-107); Calcium 9.9 mg/dL (8.4-10.2); Carbon Dioxide 26 mmol/L (22-30); Creatinine 1 0.66 mg/dL (0.52-1.04); EST GLOMERULAR FILTRATION RATE > 60.0 ML/MIN; Glucose 104 mg/dL (74-106); SGOT/AST 111 U/L (14-36); SGPT/ALT 143 U/L (0-35); SODIUM 137 mmol/L (137-145); Total Protein 7.4 g/dL (6.3-8.2)
[2022-08-17 09:04] LABS: ABO TYPING B; RH TYPING POSITIVE
[2022-08-17 09:05] LABS: Antibody Screen NEGATIVE (NEGATIVE)
[2022-08-17 09:15] LABS: INFLUENZA A NEGATIVE (NEGATIVE); INFLUENZA B NEGATIVE (NEGATIVE); RESPIRATORY SYNCTIAL VIRUS NEGATIVE (Negative); SARS-CoV-2 Xpert Express NEGATIVE (NEGATIVE)
[2022-08-17] MEDS ORDERED: Decadron 4 MG INJ ONE (10:22)
[2022-08-17] MEDS ORDERED: SUBLIMAZE 100 MCG/2 ML ONE ×2 (10:22→12:38)
[2022-08-17] MEDS ORDERED: Xylocaine-Mpf 2% 5 Ml Vial ONE (10:22)
[2022-08-17] MEDS ORDERED: DIPRIVAN 200 MG/20 ML IV ONE (10:22)
[2022-08-17] MEDS ORDERED: Zofran 4 MG/2 ML VIAL ONE (10:22)
[2022-08-17] MEDS ORDERED: Astramorph-Pf 5 MG/10 ML ONE (10:25)
[2022-08-17] MEDS ORDERED: Quelicin Fliptop 200 MG/10 ML ONE (10:26)
[2022-08-17] MEDS ORDERED: Sensorcaine 0.25% 10 ML ONE ×2 (10:27→10:39)
[2022-08-17] MEDS ORDERED: Pre-Attached Lta Kit TP ONE (10:27)
[2022-08-17] MEDS ORDERED: OFIRMEV 100 ML IV ONE (10:27)
[2022-08-17] MEDS ORDERED: BRIDION 200MG/2ML IV ONE (10:28)
[2022-08-17] MEDS ORDERED: Zemuron 100 MG/10 ML ONE ×2 (10:28→11:21)
[2022-08-17] MEDS ORDERED: Versed 2 MG/2 ML Injection ONE (10:29)
[2022-08-17] MEDS ORDERED: PHENYLEPHRINE HCL ONE (10:34)
[2022-08-17] MEDS ORDERED: Ephedrine Sulfate 50 MG/ML ONE (10:43)
[2022-08-17] MEDS ORDERED: Lactated Ringers 1,000 ML IV ONE (12:01)
[2022-08-17 14:06] LABS: Appearance CLEAR (CLEAR); Bilirubin NEGATIVE (NEGATIVE); Dipstick done @ ? MAIN LAB; Glucose NEGATIVE (NEGATIVE); Ketones NEGATIVE (NEGATIVE); Nitrite NEGATIVE (NEGATIVE); Protein,Urine Dip NEGATIVE (Negative); RBC NEGATIVE Ery/ul (0-5); Specific Gravity 1.025 (1.005-1.025); Urobilinogen 0.2 mg/dL (0-1)
[2022-08-17] MEDS ORDERED: Sodium Chloride 0.9% 10 ML FLUSH Syringe IJ PRN (14:30)
[2022-08-17] MEDS ORDERED: DEMEROL 50 MG IV PRN (14:30)
[2022-08-17] MEDS ORDERED: Nubain 10 MG/ML IV PRN (14:30)
[2022-08-17] MEDS ORDERED: Narcan 0.4 MG/ML IV PRN (14:30)
[2022-08-17] MEDS ORDERED: Zofran 4 MG/2 ML VIAL IV PRN (14:30)
[2022-08-17] MEDS ORDERED: BENADRYL 50 MG/ML IV PRN (14:30)
[2022-08-17] MEDS ORDERED: CLARITIN 10 MG PO PRN (14:30)
[2022-08-17 14:31] LABS: Epithelial Cells RARE /HPF (FEW); Mucus SLIGHT /HPF (NEGATIVE); WBC 0-2 /HPF (0-5)
[2022-08-17] MEDS ORDERED: MEDICATION INTERVENTION MC SCH (15:00)
[2022-08-17] MEDS: Mylicon 80MG PO SCH ×2 (15:36→21:26)
[2022-08-17] MEDS: CEFAZOLIN 2 GM-D5W BAG** 2 GM/50 ML ML IV SCH (15:40)
[2022-08-17] MEDS: MORPHINE SULFATE 2 MG INJ IV PRN ×2 (15:40→17:51)
[2022-08-17] MEDS: PERCOCET TABLET 5/325MG PO PRN ×2 (16:10→20:19)
[2022-08-17 18:58] LABS: Hematocrit 40.7 % (35-47); Hemoglobin 13.3 g/dL (12.0-16.0); Mean Corpuscular Hgb Concent. 32.7 g/dL (32-36); Platelet Count 186 x10^3/uL (150-450); Red Blood Count 4.03 x10^6/uL (4.1-5.4); Red Cell Distribution Width 13.1 % (11.5-14.0)
[2022-08-17] MEDS: Reglan 10 MG/2 ML IV SCH (21:29)
[2022-08-17] MEDS: Lactated Ringers 1,000 ML IV SCH (21:31)
[2022-08-17] MEDS ORDERED: Docusate Sodium 100 MG PO SCH (22:00)
[2022-08-18] MEDS: Lactated Ringers 1,000 ML IV SCH (00:04)
[2022-08-18] MEDS: CEFAZOLIN 2 GM-D5W BAG** 2 GM/50 ML ML IV SCH (00:07)
[2022-08-18] MEDS: PERCOCET TABLET 5/325MG PO PRN ×3 (00:07→07:56)
[2022-08-18 03:57] LABS: Hematocrit 38.9 % (35-47); Hemoglobin 12.7 g/dL (12.0-16.0); Mean Corpuscular Hemoglobin 32.6 pg (26-32); Mean Corpuscular Hgb Concent. 32.6 g/dL (32-36); Mean Platelet Volume 10.4 fL (7.5-11.0); Platelet Count 193 x10^3/uL (150-450); Red Blood Count 3.89 x10^6/uL (4.1-5.4); White Blood Count 10.5 x10^3/uL (4.0-10.5)
[2022-08-18 04:15] LABS: ALBUMIN 4.5 g/dL (3.5-5.0); ALKALINE PHOSPHATASE 66 U/L (38-126); ANION GAP 11.4 MEQ/L (5-15); BLOOD UREA NITROGEN 12 mg/dL (7-17); CHLORIDE 99 mmol/L (98-107); Calcium 9.4 mg/dL (8.4-10.2); Carbon Dioxide 26 mmol/L (22-30); EST GLOMERULAR FILTRATION RATE > 60.0 ML/MIN; Glucose 117 mg/dL (74-106); Potassium 4.3 mmol/L (3.5-5.1); SGOT/AST 78 U/L (14-36); SGPT/ALT 122 U/L (0-35); SODIUM 132 mmol/L (137-145); Total Protein 7.7 g/dL (6.3-8.2)
[2022-08-18] MEDS: Mylicon 80MG PO SCH (06:26)
[2022-08-18] MEDS: Reglan 10 MG/2 ML IV SCH (06:27)
[2022-08-18 07:26] VITALS: BP 133/93; PULSE 70; O2SAT 100
--- NOTE | 2022-08-18 07:27 | PCM.NOTE ---
Date and Time: 08/18/22725 Subjective Assessment: pod 1 sp lash pt resting in bed and able to ambulate and tolerate diet. vss afebrile abd; soft incision c/d/intact ext; no clubbing cyanosis or edema a/p sp lash doing well will dc home today should fu office in 2 wks Objective Exam Wound Assessment: Skin/Wound Assessment Wound/Incision Assessment Start: 08/17/22 21:39 Text: Status: Active Freq: Q4H Protocol: Document 08/18/22 04:00 LB (Rec: 08/18/22 04:37 LB [id number]) Wound/Incision Assessment Lower Abdomen Wound Assessment Shift Assessment Wound Type Incision Wound Stage Non Pressure Wound Drainage Amount None General Appearance Open to air Comment derma noonan to 2 puncture areas and 1 incision area Wound Photo Photo Taken No OBJECTIVE DATA Vital Signs: Vital Signs - 24 hr Temp Pulse Resp BP Pulse Ox 08/18/22 04:00 97.5 F 85 18 111/76 98 08/18/22 00:00 19 08/17/22 23:42 97.9 F 77 19 111/73 97 08/17/22 20:01 96 08/17/22 18:45 97.1 F 70 18 127/77 98 08/17/22 17:25 97 08/17/22 16:59 97.5 F 80 19 121/73 95 08/17/22 16:45 97.2 F 84 19 127/82 96 08/17/22 15:45 97.1 F 80 18 123/82 96 08/17/22 14:45 97.8 F 86 18 130/87 96 08/17/22 14:15 97.7 F 84 18 134/82 96 08/17/22 13:45 97.7 F 84 18 117/76 94 L 08/17/22 13:30 96 08/17/22 13:15 97.5 F 84 18 123/77 96 08/17/22 09:14 97.0 F 83 18 134/97 96 08/17/22 08:41 97.0 F 83 18 134/97 96 08/17/22 08:35 97.0 F 83 18 134/97 96 08/17/22 08:30 97.0 F 83 18 134/97 96 08/17/22 07:58 97.0 F 83 18 134/97 96 Pain Assessment - Last Documented Pain Intensity 7 Pain Scale Used 0-10 Pain Scale Intake and Output: Intake & Output 08/15/22 08/16/22 08/17/22 08/18/22 11:59 11:59 11:59 11:59 Intake Total 1754 Output Total 950 Balance 804 Weight 93 kg 93 kg Lab Results: Lab Results-Last 24 Hours 08/17/22 08/17/22 08/17/22 Range/Units 07:38 08:10 08:10 WBC 4.8 (4.0-10.5) x10^3/uL RBC 4.08 L (4.1-5.4) x10^6/uL Hgb 13.6 (12.0-16.0) g/dL Hct 39.8 (35-47) % MCV 97.5 (78-100) fL MCH 33.3 H (26-32) pg MCHC 34.2 (32-36) g/dL RDW 13.0 (11.5-14.0) % Plt Count 196 (150-450) x10^3/uL MPV 10.3 (7.5-11.0) fL Gran % 59.1 (36.0-66.0) % Immature Gran % (Auto) 0.4 (0.00-0.4) % Nucleat RBC Rel Count 0.0 (0.00-0.1) % Eos # (Auto) 0.20 (0-0.5) x10^3/uL Immature Gran # (Auto) 0.02 (0.00-0.03) x10^3u/L Absolute Lymphs (auto) 1.41 (1.0-4.6) x10^3/uL Absolute Monos (auto) 0.31 (0.0-1.3) x10^3/uL Absolute Nucleated RBC 0.00 (0.00-0.01) x10^3u/L Lymphocytes % 29.4 (24.0-44.0) % Monocytes % 6.5 (0.0-12.0) % Eosinophils % 4.2 (0.00-5.0) % Basophils % 0.4 (0.0-0.4) % Absolute Granulocytes 2.84 (1.4-6.9) x10^3/uL Basophils # 0.02 (0-0.4) x10^3/uL Sodium 137 (137-145) mmol/L Potassium 4.0 (3.5-5.1) mmol/L Chloride 104 (98-107) mmol/L Carbon Dioxide 26 (22-30) mmol/L Anion Gap 11.0 (5-15) MEQ/L BUN 12 (7-17) mg/dL Creatinine 0.66 (0.52-1.04) mg/dL Estimated GFR > 60.0 ML/MIN Glucose 104 (74-106) mg/dL Calcium 9.9 (8.4-10.2) mg/dL Total Bilirubin 0.80 (0.2-1.3) mg/dL AST 111 H (14-36) U/L ALT 143 H (0-35) U/L Alkaline Phosphatase 82 (38-126) U/L Serum Total Protein 7.4 (6.3-8.2) g/dL Albumin 4.2 (3.5-5.0) g/dL Urinalys Dipstick Clnc Urine Color (YELLOW) Urine Appearance (CLEAR) Urine pH (5-6) Ur Specific [place] (1.005-1.025) POC Urine Protein Conf (Negative) Urine Ketones (NEGATIVE) Urine Nitrite (NEGATIVE) Urine Bilirubin (NEGATIVE) Urine Urobilinogen (0-1) mg/dL Urine Leukocytes (NEGATIVE) Urine WBC (Auto) (0-5) /HPF Urine RBC (Auto) (0-2) /HPF U Epithel Cells (Auto) (FEW) /HPF Urine Bacteria (Auto) (NEGATIVE) /HPF Urine RBC (0-5) Anoop/ul Urine Mucus (Auto) (NEGATIVE) /HPF Urine Glucose (NEGATIVE) mg/dL Urine HCG, Qual NEGATIVE (Negative) Influenza Type A Ag (NEGATIVE) Influenza Type B Ag (NEGATIVE) RSV (PCR) (Negative) SARS-CoV-2 (PCR) (NEGATIVE) ABO Group Rh Factor Antibody Screen (NEGATIVE) 08/17/22 08/17/22 08/17/22 Range/Units 08:10 08:10 10:41 WBC (4.0-10.5) x10^3/uL RBC (4.1-5.4) x10^6/uL Hgb (12.0-16.0) g/dL Hct (35-47) % MCV (78-100) fL MCH (26-32) pg MCHC (32-36) g/dL RDW (11.5-14.0) % Plt Count (150-450) x10^3/uL MPV (7.5-11.0) fL Gran % (36.0-66.0) % Immature Gran % (Auto) (0.00-0.4) % Nucleat RBC Rel Count (0.00-0.1) % Eos # (Auto) (0-0.5) x10^3/uL Immature Gran # (Auto) (0.00-0.03) x10^3u/L Absolute Lymphs (auto) (1.0-4.6) x10^3/uL Absolute Monos (auto) (0.0-1.3) x10^3/uL Absolute Nucleated RBC (0.00-0.01) x10^3u/L Lymphocytes % (24.0-44.0) % Monocytes % (0.0-12.0) % Eosinophils % (0.00-5.0) % Basophils % (0.0-0.4) % Absolute Granulocytes (1.4-6.9) x10^3/uL Basophils # (0-0.4) x10^3/uL Sodium (137-145) mmol/L Potassium (3.5-5.1) mmol/L Chloride (98-107) mmol/L Carbon Dioxide (22-30) mmol/L Anion Gap (5-15) MEQ/L BUN (7-17) mg/dL Creatinine (0.52-1.04) mg/dL Estimated GFR ML/MIN Glucose (74-106) mg/dL Calcium (8.4-10.2) mg/dL Total Bilirubin (0.2-1.3) mg/dL AST (14-36) U/L ALT (0-35) U/L Alkaline Phosphatase (38-126) U/L Serum Total Protein (6.3-8.2) g/dL Albumin (3.5-5.0) g/dL Urinalys Dipstick Clnc MAIN LAB Urine Color YELLOW (YELLOW) Urine Appearance CLEAR (CLEAR) Urine pH 6.0 (5-6) Ur Specific [place] 1.025 (1.005-1.025) POC Urine Protein Conf NEGATIVE (Negative) Urine Ketones NEGATIVE (NEGATIVE) Urine Nitrite NEGATIVE (NEGATIVE) Urine Bilirubin NEGATIVE (NEGATIVE) Urine Urobilinogen 0.2 (0-1) mg/dL Urine Leukocytes NEGATIVE (NEGATIVE) Urine WBC (Auto) 0-2 (0-5) /HPF Urine RBC (Auto) NONE (0-2) /HPF U Epithel Cells (Auto) RARE (FEW) /HPF Urine Bacteria (Auto) NONE (NEGATIVE) /HPF Urine RBC NEGATIVE (0-5) Anoop/ul Urine Mucus (Auto) SLIGHT A (NEGATIVE) /HPF Urine Glucose NEGATIVE (NEGATIVE) mg/dL Urine HCG, Qual (Negative) Influenza Type A Ag NEGATIVE (NEGATIVE) Influenza Type B Ag NEGATIVE (NEGATIVE) RSV (PCR) NEGATIVE (Negative) SARS-CoV-2 (PCR) NEGATIVE (NEGATIVE) ABO Group B Rh Factor POSITIVE Antibody Screen NEGATIVE (NEGATIVE) 08/17/22 08/18/22 08/18/22 Range/Units 18:50 03:53 03:53 WBC 9.0 10.5 (4.0-10.5) x10^3/uL RBC 4.03 L 3.89 L (4.1-5.4) x10^6/uL Hgb 13.3 12.7 (12.0-16.0) g/dL Hct 40.7 38.9 (35-47) % MCV 101.0 H 100.0 (78-100) fL MCH 33.0 H 32.6 H (26-32) pg MCHC 32.7 32.6 (32-36) g/dL RDW 13.1 13.0 (11.5-14.0) % Plt Count 186 193 (150-450) x10^3/uL MPV 10.0 10.4 (7.5-11.0) fL Gran % (36.0-66.0) % Immature Gran % (Auto) (0.00-0.4) % Nucleat RBC Rel Count (0.00-0.1) % Eos # (Auto) (0-0.5) x10^3/uL Immature Gran # (Auto) (0.00-0.03) x10^3u/L Absolute Lymphs (auto) (1.0-4.6) x10^3/uL Absolute Monos (auto) (0.0-1.3) x10^3/uL Absolute Nucleated RBC (0.00-0.01) x10^3u/L Lymphocytes % (24.0-44.0) % Monocytes % (0.0-12.0) % Eosinophils % (0.00-5.0) % Basophils % (0.0-0.4) % Absolute Granulocytes (1.4-6.9) x10^3/uL Basophils # (0-0.4) x10^3/uL Sodium 132 L (137-145) mmol/L Potassium 4.3 (3.5-5.1) mmol/L Chloride 99 (98-107) mmol/L Carbon Dioxide 26 (22-30) mmol/L Anion Gap 11.4 (5-15) MEQ/L BUN 12 (7-17) mg/dL Creatinine 0.60 (0.52-1.04) mg/dL Estimated GFR > 60.0 ML/MIN Glucose 117 H (74-106) mg/dL Calcium 9.4 (8.4-10.2) mg/dL Total Bilirubin 0.60 (0.2-1.3) mg/dL AST 78 H (14-36) U/L ALT 122 H (0-35) U/L Alkaline Phosphatase 66 (38-126) U/L Serum Total Protein 7.7 (6.3-8.2) g/dL Albumin 4.5 (3.5-5.0) g/dL Urinalys Dipstick Clnc Urine Color (YELLOW) Urine Appearance (CLEAR) Urine pH (5-6) Ur Specific [place] (1.005-1.025) POC Urine Protein Conf (Negative) Urine Ketones (NEGATIVE) Urine Nitrite (NEGATIVE) Urine Bilirubin (NEGATIVE) Urine Urobilinogen (0-1) mg/dL Urine Leukocytes (NEGATIVE) Urine WBC (Auto) (0-5) /HPF Urine RBC (Auto) (0-2) /HPF U Epithel Cells (Auto) (FEW) /HPF Urine Bacteria (Auto) (NEGATIVE) /HPF Urine RBC (0-5) Anoop/ul Urine Mucus (Auto) (NEGATIVE) /HPF Urine Glucose (NEGATIVE) mg/dL Urine HCG, Qual (Negative) Influenza Type A Ag (NEGATIVE) Influenza Type B Ag (NEGATIVE) RSV (PCR) (Negative) SARS-CoV-2 (PCR) (NEGATIVE) ABO Group Rh Factor Antibody Screen (NEGATIVE) Assessment/Plan (1) Status post laparoscopic supracervical hysterectomy Current Visit: Yes Status: Acute Code(s): Z90.711 - ACQUIRED ABSENCE OF UTERUS WITH REMAINING CERVICAL STUMP (2) Elevated transaminase level Current Visit: Yes Status: Acute Code(s): R74.01 - ELEVATION OF LEVELS OF LIVER TRANSAMINASE LEVELS
--- NOTE | 2022-08-18 07:32 | PCM.DS ---
Discharge Summary Date of Admission: 08/17/22 07:25 Admitting Physician: ALEX MOMIN DO Primary Care Provider: RAYMOND NELSON Allergies Allergies prednisone Adverse Reaction (Verified 07/01/22 08:47) excessive weight gain Hospital Summary - Hospital Course Hospital Course: pt admitted on aug 17 secondary to undergoing laparoscopic supracervical hysterectomy secondary to menorrhagia failed ablation and underwent procedure without complication. during postop period did well and now stable for discharge. incision c/d/intact. hgb; 12.7 stable. pt advised to fu in office in 2 wks for postop check. all questions answered to her satisfaction and was given rx for norco for pain management. - Vitals & Intake/Output Vital Signs: Vital Signs Temperature 97.3 F 08/18/22 07:26 Pulse Rate 70 08/18/22 07:26 Respiratory Rate 16 08/18/22 07:26 Blood Pressure 133/93 08/18/22 07:26 O2 Sat by Pulse Oximetry 100 08/18/22 07:26 Intake & Output: Intake & Output 08/15/22 08/16/22 08/17/22 08/18/22 11:59 11:59 11:59 11:59 Intake Total 1754 Output Total 950 Balance 804 Weight 93 kg 93 kg - Lab Result Diagrams: 08/18/22 03:53 08/18/22 03:53 Lab Results-Last 24 Hrs: Lab Results-Last 24 Hours 08/17/22 08/17/22 08/17/22 Range/Units 07:38 08:10 08:10 WBC 4.8 (4.0-10.5) x10^3/uL RBC 4.08 L (4.1-5.4) x10^6/uL Hgb 13.6 (12.0-16.0) g/dL Hct 39.8 (35-47) % MCV 97.5 (78-100) fL MCH 33.3 H (26-32) pg MCHC 34.2 (32-36) g/dL RDW 13.0 (11.5-14.0) % Plt Count 196 (150-450) x10^3/uL MPV 10.3 (7.5-11.0) fL Gran % 59.1 (36.0-66.0) % Immature Gran % (Auto) 0.4 (0.00-0.4) % Nucleat RBC Rel Count 0.0 (0.00-0.1) % Eos # (Auto) 0.20 (0-0.5) x10^3/uL Immature Gran # (Auto) 0.02 (0.00-0.03) x10^3u/L Absolute Lymphs (auto) 1.41 (1.0-4.6) x10^3/uL Absolute Monos (auto) 0.31 (0.0-1.3) x10^3/uL Absolute Nucleated RBC 0.00 (0.00-0.01) x10^3u/L Lymphocytes % 29.4 (24.0-44.0) % Monocytes % 6.5 (0.0-12.0) % Eosinophils % 4.2 (0.00-5.0) % Basophils % 0.4 (0.0-0.4) % Absolute Granulocytes 2.84 (1.4-6.9) x10^3/uL Basophils # 0.02 (0-0.4) x10^3/uL Sodium 137 (137-145) mmol/L Potassium 4.0 (3.5-5.1) mmol/L Chloride 104 (98-107) mmol/L Carbon Dioxide 26 (22-30) mmol/L Anion Gap 11.0 (5-15) MEQ/L BUN 12 (7-17) mg/dL Creatinine 0.66 (0.52-1.04) mg/dL Estimated GFR > 60.0 ML/MIN Glucose 104 (74-106) mg/dL Calcium 9.9 (8.4-10.2) mg/dL Total Bilirubin 0.80 (0.2-1.3) mg/dL AST 111 H (14-36) U/L ALT 143 H (0-35) U/L Alkaline Phosphatase 82 (38-126) U/L Serum Total Protein 7.4 (6.3-8.2) g/dL Albumin 4.2 (3.5-5.0) g/dL Urinalys Dipstick Clnc Urine Color (YELLOW) Urine Appearance (CLEAR) Urine pH (5-6) Ur Specific [place] (1.005-1.025) POC Urine Protein Conf (Negative) Urine Ketones (NEGATIVE) Urine Nitrite (NEGATIVE) Urine Bilirubin (NEGATIVE) Urine Urobilinogen (0-1) mg/dL Urine Leukocytes (NEGATIVE) Urine WBC (Auto) (0-5) /HPF Urine RBC (Auto) (0-2) /HPF U Epithel Cells (Auto) (FEW) /HPF Urine Bacteria (Auto) (NEGATIVE) /HPF Urine RBC (0-5) Anoop/ul Urine Mucus (Auto) (NEGATIVE) /HPF Urine Glucose (NEGATIVE) mg/dL Urine HCG, Qual NEGATIVE (Negative) Influenza Type A Ag (NEGATIVE) Influenza Type B Ag (NEGATIVE) RSV (PCR) (Negative) SARS-CoV-2 (PCR) (NEGATIVE) ABO Group Rh Factor Antibody Screen (NEGATIVE) 08/17/22 08/17/22 08/17/22 Range/Units 08:10 08:10 10:41 WBC (4.0-10.5) x10^3/uL RBC (4.1-5.4) x10^6/uL Hgb (12.0-16.0) g/dL Hct (35-47) % MCV (78-100) fL MCH (26-32) pg MCHC (32-36) g/dL RDW (11.5-14.0) % Plt Count (150-450) x10^3/uL MPV (7.5-11.0) fL Gran % (36.0-66.0) % Immature Gran % (Auto) (0.00-0.4) % Nucleat RBC Rel Count (0.00-0.1) % Eos # (Auto) (0-0.5) x10^3/uL Immature Gran # (Auto) (0.00-0.03) x10^3u/L Absolute Lymphs (auto) (1.0-4.6) x10^3/uL Absolute Monos (auto) (0.0-1.3) x10^3/uL Absolute Nucleated RBC (0.00-0.01) x10^3u/L Lymphocytes % (24.0-44.0) % Monocytes % (0.0-12.0) % Eosinophils % (0.00-5.0) % Basophils % (0.0-0.4) % Absolute Granulocytes (1.4-6.9) x10^3/uL Basophils # (0-0.4) x10^3/uL Sodium (137-145) mmol/L Potassium (3.5-5.1) mmol/L Chloride (98-107) mmol/L Carbon Dioxide (22-30) mmol/L Anion Gap (5-15) MEQ/L BUN (7-17) mg/dL Creatinine (0.52-1.04) mg/dL Estimated GFR ML/MIN Glucose (74-106) mg/dL Calcium (8.4-10.2) mg/dL Total Bilirubin (0.2-1.3) mg/dL AST (14-36) U/L ALT (0-35) U/L Alkaline Phosphatase (38-126) U/L Serum Total Protein (6.3-8.2) g/dL Albumin (3.5-5.0) g/dL Urinalys Dipstick Clnc MAIN LAB Urine Color YELLOW (YELLOW) Urine Appearance CLEAR (CLEAR) Urine pH 6.0 (5-6) Ur Specific [place] 1.025 (1.005-1.025) POC Urine Protein Conf NEGATIVE (Negative) Urine Ketones NEGATIVE (NEGATIVE) Urine Nitrite NEGATIVE (NEGATIVE) Urine Bilirubin NEGATIVE (NEGATIVE) Urine Urobilinogen 0.2 (0-1) mg/dL Urine Leukocytes NEGATIVE (NEGATIVE) Urine WBC (Auto) 0-2 (0-5) /HPF Urine RBC (Auto) NONE (0-2) /HPF U Epithel Cells (Auto) RARE (FEW) /HPF Urine Bacteria (Auto) NONE (NEGATIVE) /HPF Urine RBC NEGATIVE (0-5) Anoop/ul Urine Mucus (Auto) SLIGHT A (NEGATIVE) /HPF Urine Glucose NEGATIVE (NEGATIVE) mg/dL Urine HCG, Qual (Negative) Influenza Type A Ag NEGATIVE (NEGATIVE) Influenza Type B Ag NEGATIVE (NEGATIVE) RSV (PCR) NEGATIVE (Negative) SARS-CoV-2 (PCR) NEGATIVE (NEGATIVE) ABO Group B Rh Factor POSITIVE Antibody Screen NEGATIVE (NEGATIVE) 08/17/22 08/18/22 08/18/22 Range/Units 18:50 03:53 03:53 WBC 9.0 10.5 (4.0-10.5) x10^3/uL RBC 4.03 L 3.89 L (4.1-5.4) x10^6/uL Hgb 13.3 12.7 (12.0-16.0) g/dL Hct 40.7 38.9 (35-47) % MCV 101.0 H 100.0 (78-100) fL MCH 33.0 H 32.6 H (26-32) pg MCHC 32.7 32.6 (32-36) g/dL RDW 13.1 13.0 (11.5-14.0) % Plt Count 186 193 (150-450) x10^3/uL MPV 10.0 10.4 (7.5-11.0) fL Gran % (36.0-66.0) % Immature Gran % (Auto) (0.00-0.4) % Nucleat RBC Rel Count (0.00-0.1) % Eos # (Auto) (0-0.5) x10^3/uL Immature Gran # (Auto) (0.00-0.03) x10^3u/L Absolute Lymphs (auto) (1.0-4.6) x10^3/uL Absolute Monos (auto) (0.0-1.3) x10^3/uL Absolute Nucleated RBC (0.00-0.01) x10^3u/L Lymphocytes % (24.0-44.0) % Monocytes % (0.0-12.0) % Eosinophils % (0.00-5.0) % Basophils % (0.0-0.4) % Absolute Granulocytes (1.4-6.9) x10^3/uL Basophils # (0-0.4) x10^3/uL Sodium 132 L (137-145) mmol/L Potassium 4.3 (3.5-5.1) mmol/L Chloride 99 (98-107) mmol/L Carbon Dioxide 26 (22-30) mmol/L Anion Gap 11.4 (5-15) MEQ/L BUN 12 (7-17) mg/dL Creatinine 0.60 (0.52-1.04) mg/dL Estimated GFR > 60.0 ML/MIN Glucose 117 H (74-106) mg/dL Calcium 9.4 (8.4-10.2) mg/dL Total Bilirubin 0.60 (0.2-1.3) mg/dL AST 78 H (14-36) U/L ALT 122 H (0-35) U/L Alkaline Phosphatase 66 (38-126) U/L Serum Total Protein 7.7 (6.3-8.2) g/dL Albumin 4.5 (3.5-5.0) g/dL Urinalys Dipstick Clnc Urine Color (YELLOW) Urine Appearance (CLEAR) Urine pH (5-6) Ur Specific [place] (1.005-1.025) POC Urine Protein Conf (Negative) Urine Ketones (NEGATIVE) Urine Nitrite (NEGATIVE) Urine Bilirubin (NEGATIVE) Urine Urobilinogen (0-1) mg/dL Urine Leukocytes (NEGATIVE) Urine WBC (Auto) (0-5) /HPF Urine RBC (Auto) (0-2) /HPF U Epithel Cells (Auto) (FEW) /HPF Urine Bacteria (Auto) (NEGATIVE) /HPF Urine RBC (0-5) Anoop/ul Urine Mucus (Auto) (NEGATIVE) /HPF Urine Glucose (NEGATIVE) mg/dL Urine HCG, Qual (Negative) Influenza Type A Ag (NEGATIVE) Influenza Type B Ag (NEGATIVE) RSV (PCR) (Negative) SARS-CoV-2 (PCR) (NEGATIVE) ABO Group Rh Factor Antibody Screen (NEGATIVE) - Procedures and Test Procedures and Tests throughout Hospitalization: Therapy Orders & Screens 08/17/22 13:33 Incentive Spirometry UD Comment: Diagnosis: menneragia, failed ablation Discharge Exam Wound Assessment: Skin/Wound Assessment Wound/Incision Assessment Start: 08/17/22 21:39 Text: Status: Active Freq: Q4H Protocol: Document 08/18/22 04:00 LB (Rec: 08/18/22 04:37 LB [id number]) Wound/Incision Assessment Lower Abdomen Wound Assessment Shift Assessment Wound Type Incision Wound Stage Non Pressure Wound Drainage Amount None General Appearance Open to air Comment derma noonan to 2 puncture areas and 1 incision area Wound Photo Photo Taken No Final Diagnosis/Problem List - Final Discharge Diagnosis/Problem (1) Status post laparoscopic supracervical hysterectomy Current Visit: Yes Status: Acute Code(s): Z90.711 - ACQUIRED ABSENCE OF UTERUS WITH REMAINING CERVICAL STUMP (2) Elevated transaminase level Current Visit: Yes Status: Acute Code(s): R74.01 - ELEVATION OF LEVELS OF LIVER TRANSAMINASE LEVELS - Discharge Disposition: Home, Self-Care Condition: Stable Prescriptions: New Hydrocodone/Acetaminophen [Hydrocodone-Acetamin 5-325 mg] 1 tab PO Q6HPRN PRN #20 tablet MDD 4 PRN Reason: Pain No Action Metoprolol Tartrate [Lopressor] 50 mg PO DAILY ARIPiprazole [Aripiprazole] 2 mg PO DAILY Venlafaxine HCl [Effexor Xr] 150 mg PO DAILY Hydroxyzine HCl 25 mg [Atarax 25 mg] 25 mg PO DAILY Follow up with: RAYMOND NELSON NP [Primary Care Provider] - ALEX MOMIN DO [ACTIVE STAFF] - 2 weeks (keep incision clean and dry should fu in office in 2 wks)
[2022-08-18] MEDS ORDERED: ENOXAPARIN SODIUM SQ SCH (08:00)
[2022-08-18] MEDS ORDERED: Effexor XR 75 MG PO SCH (10:00)
[2022-08-18] MEDS ORDERED: ATARAX 25 MG PO SCH (10:00)
[2022-08-18] MEDS ORDERED: NON-FORMULARY ITEM (Aripiprazole [Aripiprazole] 2 MG Tablet) PO SCH (10:00)
[2022-08-18] MEDS ORDERED: Lopressor 50 MG PO SCH (10:00)
[2022-08-18] MEDS ORDERED: NON-FORMULARY ITEM (Venlafaxine Hcl [Effexor Xr] 150 MG Cap.Er.24h) PO SCH (10:00)
[2022-08-18] MEDS ORDERED: HOLD NARCOTIC ANALGESICS AND SEDATIVES X24 HR MC SCH (10:00)
--- NOTE | 2022-08-18 11:02 | OP ---
SURGERY DATE/TIME: 08/17/2022 1025 PREOPERATIVE DIAGNOSIS: Menorrhagia with failed ablation. POSTOPERATIVE DIAGNOSIS: Menorrhagia with failed ablation. PROCEDURE: Laparoscopic supracervical hysterectomy. SURGEON: Abe Hickman D.O. SEISMOGRAPH HELPER: Melissa Zambrano surgical scrub technologist. ANESTHESIA: General. ESTIMATED BLOOD LOSS: Minimal. COMPLICATIONS: None. INDICATIONS: The risks, benefits, indications and alternatives of the procedure were reviewed with the patient prior to procedure. The patient understood the risk of infection, bleeding, bowel injury, bladder injury, ureteral injury, pelvic infection, thromboembolic disorder associated with this surgery and desires to have this procedure as a possible means to alleviate her current medical condition. DESCRIPTION OF PROCEDURE AND FINDINGS: At this point the patient is taken to the operating room given general anesthesia, placed in the supine position where she was prepped and draped in the usual sterile fashion. A 5 mm skin incision was made in the umbilical fold where a 5 mm trocar and sleeve were advanced under direct visualization where pneumoperitoneum was obtained with 4 liters of CO2 gas. An additional incision is made at left middle quadrant region where a 5 mm trocar and sleeve were advanced under direct visualization and another incision was made in the right middle quadrant region where a 5 mm trocar and sleeve were advanced under direct visualization as well. A survey of the patient's pelvis and abdomen revealed her to have a uterus of approximately 6 to 7 weeks size with normal ovaries bilaterally. From this point the LigaSure was then introduced through the trocar site. The uterus was lifted by the clinic office assistant towards the side and LigaSure placed on the left utero-ovarian ligament where it was clamped, coagulated and cut taken down to the round ligament toward uterine vasculature on the left side where the uterine vessels were identified, dissected and they were coagulated on two contiguous regions and hemostasis was obtained. A bladder flap is developed on its side. The same procedure was performed on the right side where the right utero-ovarian ligament was clamped, coagulated and cut taken down to the round ligament towards the uterine vasculature where it too was identified and was clamped, coagulated and cut in two contiguous regions and bladder flap developed on its side as well. 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 From this point an additional incision was made 2 cm above the symphysis pubis where a 2.5 cm incision was made horizontally and taken down towards the fascia and entered to the fascia where Stephen retractor was placed in through the incision where at this point the uterus was brought up with Stephen retractor and removed without complication. The Stephen retractor was then subsequently removed. The fascia was closed with 0 Vicryl suture and the subcutaneous layer was closed with 3-0 Vicryl and the skin was closed with absorbable griselda called INSORB. From this point, a second look was made with the laparoscope and there was no bleeding that was noted within the pelvic region. All other anatomy appeared to be within normal limits. At this point all instruments were removed from the patient's abdominal region and the incisions were closed with 4-0 Monocryl suture. From this point, the patient was then taken out of anesthesia and was then taken to the recovery room in stable condition. All instruments and laps were correct x2.
[2022-08-18] MEDS ORDERED: TORAdol 30 mg Injection IV PRN (14:00)
[2022-08-18] MEDS ORDERED: Zofran 4 MG/2 ML VIAL IV PRN (14:21)
== END 2022-08-18 08:30 | disposition home or self-care (01) ==
LOC: INTOOBSV 08-17 07:25 → MED SURG 08-17 07:25 → EDSTATUS 08-17 14:51
PROVIDERS: ADMIT Obstetrics & Gynecology; ATTEND Obstetrics & Gynecology
DX: N92.0 Excessive and frequent menstruation with regular cycle (principal); R74.01 Elevation of levels of liver transaminase levels; Z20.828 Contact with and (suspected) exposure to other viral communicable diseases
CPT/HCPCS: 0241U; 36415; 58542; 64488; 76937; 80053; 81001; 81025; 85025; 85027; 86850; 86900; 86901; 87086; 94762; 62322; 76942; G0378; J0330; J0690; J0694; J1100; J2250; J2270; J2274; J2370; J2405; J2704; J3010; A9270-GY

== ENCOUNTER 2023-06-06 17:51 | Emergency (ER) | payer OTHER ==
--- NOTE | 2023-06-06 17:53 | ERPHSYRPT ---
- History of Present Illness Time Seen by Provider: 06/06/23 17:53 Source: patient Exam Limitations: no limitations Physician History: This is a 37-year-old white female patient who was at work lifting and carrying a heavy cable and attempted to throw it off her shoulder. When she did that she had severe, sudden onset of burning and tearing sensation in the lumbar level paraspinous muscles. It is to the right side. She does not have pain on her spine proper. Patient has a history of hypertension, anxiety and depression. She has no chest pain and she denies shortness of breath. Timing/Duration: today Quality: burning, stabbing Back Pain Location: paraspinous muscles (Lumbar spine level) Severity of Pain-Max: moderate Severity of Pain-Current: moderate Modifying Factors: Improves With: movement Associated Symptoms: lower back pain, No urinary incontinence, No loss of bowel control, No numbness in legs/feet Previous symptoms: no prior history Allergies/Adverse Reactions: prednisone Adverse Reaction (Verified 07/01/22 08:47) excessive weight gain Home Medications: ARIPiprazole [Aripiprazole] 2 mg PO DAILY 11/23/21 [History] Hydroxyzine HCl 25 mg [Atarax 25 mg] 25 mg PO DAILY 11/23/21 [History] Metoprolol Tartrate [Lopressor] 50 mg PO DAILY 11/23/21 [History] Venlafaxine HCl [Effexor Xr] 150 mg PO DAILY 11/23/21 [History] Hx Tetanus, Diphtheria Vaccination/Date Given: Yes Hx Influenza Vaccination/Date Given: No Hx Pneumococcal Vaccination/Date Given: No Travel Risk - International Travel Have you traveled outside of the country in past 3 weeks: No - Coronavirus Screening Are you exhibiting any of the following symptoms?: No Close contact with a COVID-19 positive Pt in past 14-21 Days: No - Vaccine Status Have you recieved a Covid-19 vaccination: No - Review of Systems Constitutional: No Symptoms Eyes: No Symptoms Ears, Nose, & Throat: No Symptoms Respiratory: No Symptoms Cardiac: No Symptoms Abdominal/Gastrointestinal: No Symptoms Genitourinary Symptoms: No Symptoms Musculoskeletal: Back Pain, Injury Skin: No Symptoms Neurological: No Symptoms Psychological: No Symptoms Endocrine: No Symptoms Hematologic/Lymphatic: No Symptoms Immunological/Allergic: No Symptoms All Other Systems: Reviewed and Negative - Past Medical History Pertinent Past Medical History: Yes Neurological History: Migraines ENT History: No Pertinent History Cardiac History: Arrhythmia Respiratory History: No Pertinent History Endocrine Medical History: No Pertinent History Musculoskeletal History: No Pertinent History GI Medical History: No Pertinent History History: No Pertinent History Psycho-Social History: Anxiety, Depression Female Reproductive Disorders: No Pertinent History Other Medical History: MEDICATED FOR MIGRAINES, GETS TENSION HEADACHES. - Past Surgical History Past Surgical History: Yes Neuro Surgical History: No Pertinent History Cardiac: No Pertinent History Respiratory: No Pertinent History Gastrointestinal: No Pertinent History Genitourinary: No Pertinent History Musculoskeletal: Orthopedic Surgery Female Surgical History: No Pertinent History, Dilation & Curettage, Tubal Ligation Other Surgical History: lt wrist, lt ankle, IUD placed and removed. failed ablation. - Social History Smoking Status: Current every day smoker How long have you smoked: 15 Exposure to second hand smoke: Yes Alcohol Use: Socially Drug Use: none Patient Lives Alone: No Significant Family History: no pertinent family hx - Nursing Vital Signs Nursing Vital Signs: Initial Vital Signs Temperature 96.7 F 06/06/23 18:09 Pulse Rate 100 H 06/06/23 18:09 Respiratory Rate 20 06/06/23 18:09 Blood Pressure 176/92 06/06/23 18:09 O2 Sat by Pulse Oximetry 99 06/06/23 18:09 Pain Scale Pain Intensity [Lower Back] 7 Pain Intensity 5 - Physical Exam General Appearance: no apparent distress, alert, anxiety Eye Exam: PERRL/EOMI, eyes nml inspection Ears, Nose, Throat Exam: normal ENT inspection, moist mucous membranes Neck Exam: normal inspection, non-tender, supple, full range of motion Respiratory Exam: normal breath sounds, lungs clear, airway intact, No chest tenderness, No respiratory distress Cardiovascular Exam: regular rate/rhythm, normal heart sounds, normal peripheral pulses Gastrointestinal Exam: soft, normal bowel sounds, No tenderness Pelvic Exam: not done Rectal Exam: not done Back Exam: normal inspection, decreased range of motion, muscle spasm (Right lower lumbar paraspinous muscle), No vertebral tenderness Extremity Exam: normal inspection, normal range of motion, pelvis stable Neurologic Exam: alert, oriented x 3, cooperative, 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, normal mood/affect, nml cerebellar function, sensation nml Skin Exam: normal color, warm, dry Lymphatic Exam: No adenopathy SpO2 Interpretation: normal O2 Delivery: Room Air - Course Nursing assessment & vital signs reviewed: Yes Ordered Tests: Active Orders 24 hr Category Date Time Status LUMBAR LIMITED (2 OR 3 VIEWS) Stat Exams 06/06/23 18:32 Taken Medication Summary Discontinued Medications Generic Name Dose Route Start Last Admin Trade Name Blade PRN Reason Stop Dose Admin Methylprednisolone Sodium 0 mg 06/06/23 18:32 06/06/23 18:47 Succinate 125 mg/ Sterile IM 06/06/23 18:33 125 mg Water 2 ml STAT ONE Administration Hydromorphone HCl 1 mg 06/06/23 18:30 06/06/23 18:47 Hydromorphone 1 Mg/1ml Inj IM 06/06/23 18:31 1 mg STAT ONE Administration Hydromorphone HCl Confirm 06/06/23 18:46 Hydromorphone 1 Mg/1ml Inj Administered 06/06/23 18:47 Dose 1 mg .ROUTE .STK-MED ONE Methylprednisolone Sodium Succinate Confirm 06/06/23 18:46 Methylprednis Sod Succ 125 Mg/2 Ml Vial Administered 06/06/23 18:47 Dose 125 mg .ROUTE .STK-MED ONE Ondansetron HCl 4 mg 06/06/23 18:31 06/06/23 18:47 Zofran 4 Mg/Udtablet Orally Disintegrating PO 06/06/23 18:32 4 mg STAT ONE Administration Ondansetron HCl Confirm 06/06/23 18:45 Zofran 4 Mg/Udtablet Orally Disintegrating Administered 06/06/23 18:46 Dose 4 mg .ROUTE .STK-MED ONE Orphenadrine Citrate 60 mg 06/06/23 18:31 06/06/23 18:47 Orphenadrine Citrate 60 Mg/2 Ml Vial IM 06/06/23 18:32 60 mg STAT ONE Administration Orphenadrine Citrate Confirm 06/06/23 18:46 Orphenadrine Citrate 60 Mg/2 Ml Vial Administered 06/06/23 18:47 Dose 60 mg .ROUTE .STK-MED ONE Sterile Water Confirm 06/06/23 18:45 Water For Injection,Sterile 10 Ml Vial Administered 06/06/23 18:46 Dose 10 ml IJ .STK-MED ONE - Progress Progress: improved, pain not gone completely, re-examined Progress Note: 06/06/23 19:23 Patient's medical issue is 1 of low complexity the level complexity in the work- up performed is based on review of the patient's past medical history, review of the patient's medication list, review of the patient's drug allergy list, history of present illness and physical findings on examination. This patient's medical work-up includes lumbar spine x-rays. I interpreted the lumbar spine x- rays myself. There is no evidence of acute fracture or subluxation. Counseled pt/family regarding: diagnosis, need for follow-up, rad results Medical Desision Making - Independent Historian Additional History obtained from: Relative/friend - Diagnostic Testing Diagnostic test were ordered, analyzed, and reviewed by me: Yes Radiological Interpretation: Interpreted by me - Risk of complications The pt has a mod risk of morbidity or mortality based on: Need for prescription drug management - Departure Departure Disposition: Home Clinical Impression: Strain of lumbar paraspinous muscle Condition: Stable Critical Care Time: No Additional Instructions: Alternate ice and heat to the back pain area. Do not apply ice and heat directly to skin. Apply [id number] lidocaine patch to the area of tenderness. Take your medication as prescribed. Forms: Work/School Release Form Prescriptions: Oxycodone HCl/Acetaminophen [Percocet 5-325 mg Tablet] 1 each PO Q8H PRN PRN #6 tablet MDD 3 PRN Reason: Moderate To Severe Pain Orphenadrine Citrate 100 mg [Norflex 100 MG Tablet] 100 mg PO BID #10 tab
[2023-06-06 18:14] VITALS: TEMP 96.7
[2023-06-06] MEDS ORDERED: Hydromorphone 1 mg/ml Injection IM ONE (18:30)
[2023-06-06] MEDS ORDERED: Norflex 60 MG/2 ML IM ONE (18:31)
[2023-06-06] MEDS ORDERED: ZOFRAN ODT 4 MG PO ONE (18:31)
[2023-06-06] MEDS ORDERED: solu-MEDROL 125 MG, Sterile H2O 10 ml 2 ML IM ONE ×2 (18:32)
[2023-06-06] MEDS ORDERED: ZOFRAN ODT 4 MG ONE (18:45)
[2023-06-06] MEDS ORDERED: Sterile H2O 10 ml IJ ONE (18:45)
[2023-06-06] MEDS ORDERED: Hydromorphone 1 mg/ml Injection ONE (18:46)
[2023-06-06] MEDS ORDERED: solu-MEDROL ONE (18:46)
[2023-06-06] MEDS ORDERED: Norflex 60 MG/2 ML ONE (18:46)
[2023-06-06] MEDS ORDERED: PERCOCET TABLET 5/325MG PO STA (19:28)
[2023-06-06] MEDS ORDERED: PERCOCET TABLET 5/325MG ONE (19:43)
[2023-06-06 19:54] VITALS: BP 156/99; PULSE 94; RESP 16; O2SAT 99
--- NOTE | 2023-06-07 08:36 | XRAY ---
Indication: Low back pain following lifting injury. Comparison: None 3 view lumbar spine demonstrates 5 lumbar segments in normal alignment with very minimal L5-S1 disc space narrowing. No other bony, articular, or soft tissue abnormalities.
== END 2023-06-06 19:57 | disposition home or self-care (01) ==
LOC: ED 17:51
DX: S39.012A Strain of muscle, fascia and tendon of lower back, initial encounter (principal); X50.0XXA Overexertion from strenuous movement or load, initial encounter; Y92.64 Mine or pit as the place of occurrence of the external cause; Y99.0 Civilian activity done for income or pay; I10 Essential (primary) hypertension; Z79.891 Long term (current) use of opiate analgesic; Z79.899 Other long term (current) drug therapy; Z28.310 Unvaccinated for COVID-19; Z72.0 Tobacco use
CPT/HCPCS: 72100; 96372; 99284; 99291; J1170; J2360; J2930; Q0162; A9270-GY

== ENCOUNTER 2024-03-14 02:08 | Emergency (ER) | payer SELFPAY ==
[2024-03-14 02:36] VITALS: TEMP 97.4
--- NOTE | 2024-03-14 02:36 | ERPHSYRPT ---
- History of Present Illness Time Seen by Provider: 03/14/24 02:33 Historian: patient Exam Limitations: no limitations Physician History: 38-year-old female presents to our ED for evaluation of right lower quadrant pain. Right lower quadrant pain started approximately 4 to 5 days ago. Symptoms have been progressive. Symptoms are mild to moderate in intensity. Pain worse with movement and palpation. Pain improved with rest. No trauma no fever. No nausea vomiting diarrhea or rash. Patient recently returned from a trip to the [facility]. She denies sick contacts. Patient has no significant past medical history. She voices no other complaints or concerns at this time. Portions of this note were created with voice recognition technology. There may be grammatical, spelling, punctuation or sound alike errors Timing/Duration: today Activities at Onset: none Quality: aching Abdominal Pain Onset Location: RLQ Pain Radiation: no radiation Severity of Pain-Max: moderate Severity of Pain-Current: mild Modifying Factors: Improves With: nothing Associated Symptoms: denies symptoms Previous symptoms: no prior history Allergies/Adverse Reactions: prednisone Adverse Reaction (Verified 03/14/24 02:36) excessive weight gain Home Medications: Metoprolol Tartrate [Lopressor] 50 mg PO DAILY 11/23/21 [History] Venlafaxine HCl [Effexor Xr] 150 mg PO DAILY 11/23/21 [History] Hx Tetanus, Diphtheria Vaccination/Date Given: Yes Hx Influenza Vaccination/Date Given: No Hx Pneumococcal Vaccination/Date Given: No - Review of Systems Constitutional: No Symptoms, No Fever, No Chills Eyes: No Symptoms Ears, Nose, & Throat: No Symptoms Respiratory: No Symptoms, No Cough, No Dyspnea Cardiac: No Symptoms, No Chest Pain, No Edema, No Syncope Abdominal/Gastrointestinal: No Symptoms, No Abdominal Pain, No Nausea, No V omiting, No Diarrhea Genitourinary Symptoms: No Symptoms, No Dysuria Musculoskeletal: No Symptoms, No Back Pain, No Neck Pain Skin: No Symptoms, No Rash Neurological: No Symptoms, No Dizziness, No Focal Weakness, No Sensory Changes Psychological: No Symptoms Endocrine: No Symptoms Hematologic/Lymphatic: No Symptoms Immunological/Allergic: No Symptoms All Other Systems: Reviewed and Negative - Past Medical History Pertinent Past Medical History: Yes Neurological History: Migraines ENT History: No Pertinent History Cardiac History: Arrhythmia Respiratory History: No Pertinent History Endocrine Medical History: No Pertinent History Musculoskeletal History: No Pertinent History GI Medical History: No Pertinent History History: No Pertinent History Psycho-Social History: Anxiety, Depression Female Reproductive Disorders: No Pertinent History Other Medical History: MEDICATED FOR MIGRAINES, GETS TENSION HEADACHES. - Past Surgical History Past Surgical History: Yes Neuro Surgical History: No Pertinent History Cardiac: No Pertinent History Respiratory: No Pertinent History Gastrointestinal: No Pertinent History Genitourinary: No Pertinent History Musculoskeletal: Orthopedic Surgery Female Surgical History: No Pertinent History, Dilation & Curettage, Tubal Ligation Other Surgical History: lt wrist, lt ankle, IUD placed and removed. failed ablation. Significant Family History: no pertinent family hx - Female History Hx Last Menstrual Period: 1 week ago - Social History Smoking Status: Current every day smoker How long have you smoked: 15 Exposure to second hand smoke: Yes Alcohol Use: Socially Drug Use: none Patient Lives Alone: No - Nursing Vital Signs Nursing Vital Signs: Initial Vital Signs Temperature 97.4 F 03/14/24 02:18 Pulse Rate 110 H 03/14/24 02:18 Respiratory Rate 24 03/14/24 02:18 Blood Pressure 163/113 03/14/24 02:18 Pain Scale Pain Intensity 5 - Physical Exam General Appearance: no apparent distress, alert Eye Exam: PERRL/EOMI, eyes nml inspection Ears, Nose, Throat Exam: normal ENT inspection, pharynx normal, moist mucous membranes Neck Exam: normal inspection, non-tender, supple, full range of motion Respiratory Exam: normal breath sounds, lungs clear, airway intact, No respir atory distress Cardiovascular Exam: regular rate/rhythm, normal heart sounds Gastrointestinal/Abdomen Exam: soft, other (Right-sided CVA. Tenderness palpation right lower quadrant), No tenderness, No mass Back Exam: normal inspection, normal range of motion, No CVA tenderness, No vertebral tenderness Extremity Exam: normal inspection, normal range of motion, pelvis stable Neurologic Exam: alert, oriented x 3, cooperative, normal mood/affect, nml cerebellar function, sensation nml, No motor deficits Skin Exam: normal color, warm, dry SpO2 Interpretation: normal SpO2: 98 O2 Delivery: Room Air - Course Nursing assessment & vital signs reviewed: Yes - CT Exams Abdomen/Pelvis CT Interpretation: Tele-radiologist Report (Right adnexa complex cystic lesion measuring 6.8 x 4.3 cm. Mass in tangles with distal ileum loop. Duodenal diverticulum left adnexa soft tissue density measuring 3.2 x 2.2 cm. Bulky left adrenal gland) Ordered Tests: Active Orders 24 hr Category Date Time Status IV Insertion STAT Care 03/14/24 02:29 Active ABDOMEN AND PELVIS W/0 CONTRAS [CT] Stat Exams 03/14/24 02:30 Completed PELVIC [US] Stat Exams 03/14/24 04:39 Ordered CBC W DIFF Stat Lab 03/14/24 02:42 Completed CMP Stat Lab 03/14/24 02:42 Completed TROPONIN Q4H Lab 03/14/24 02:42 Completed TROPONIN Q4H Lab 03/14/24 05:22 Completed TROPONIN Q4H Lab 03/14/24 10:30 Ordered UA W/RFX UR CULTURE Stat Lab 03/14/24 02:42 Completed Medication Summary Discontinued Medications Generic Name Dose Route Start Last Admin Trade Name Freq PRN Reason Stop Dose Admin Sodium Chloride 1,000 mls @ 999 mls/hr 03/14/24 02:29 03/14/24 02:41 Sodium Chloride 0.9% 1000 Ml IV 03/14/24 03:29 999 mls/hr .Q1H1M STA Administration Sodium Chloride Confirm 03/14/24 02:39 Sodium Chloride 0.9% 1000 Ml Administered 03/14/24 02:40 Dose 1,000 mls @ ud .ROUTE .STK-MED ONE Ketorolac Tromethamine 30 mg 03/14/24 02:29 03/14/24 02:41 Ketorolac Tromethamine 30 Mg/Ml Inj IV 03/14/24 02:30 30 mg STAT ONE Administration Ketorolac Tromethamine Confirm 03/14/24 02:39 Ketorolac Tromethamine 30 Mg/Ml Inj Administered 03/14/24 02:40 Dose 30 mg .ROUTE .STK-MED ONE Ketorolac Tromethamine Confirm 03/14/24 02:43 Ketorolac Tromethamine 30 Mg/Ml Inj Administered 03/14/24 02:44 Dose 30 mg .ROUTE .STK-MED ONE Morphine Sulfate Confirm 03/14/24 03:38 Morphine Sulfate 2 Mg/Ml Inj Administered 03/14/24 03:39 Dose 2 mg .ROUTE .STK-MED ONE Morphine Sulfate 2 mg 03/14/24 04:19 03/14/24 03:43 Morphine Sulfate 2 Mg/Ml Inj IV 03/14/24 04:20 2 mg STAT ONE Administration Morphine Sulfate Confirm 03/14/24 05:40 Morphine Sulfate 2 Mg/Ml Inj Administered 03/14/24 05:41 Dose 2 mg .ROUTE .STK-MED ONE Ondansetron HCl 4 mg 03/14/24 02:45 03/14/24 02:49 Ondansetron Hcl 4 Mg/2 Ml Vial IV 03/14/24 02:46 4 mg STAT ONE Administration Ondansetron HCl Confirm 03/14/24 02:45 Ondansetron Hcl 4 Mg/2 Ml Vial Administered 03/14/24 02:46 Dose 4 mg .ROUTE .STK-MED ONE Lab/Rad Data: Laboratory Result Diagrams 03/14/24 02:42 03/14/24 02:42 Laboratory Results 03/14/24 03/14/24 03/14/24 Range/Units 05:22 02:42 02:42 WBC (3.98-10.04) x10^3/uL RBC (3.93-5.22) x10^6/uL Hgb (11.2-15.7) g/dL Hct (34.1-44.9) % MCV (79.4-94.8) fL MCH (25.6-32.2) pg MCHC (32.2-35.5) g/dL RDW (11.7-14.4) % Plt Count (182-369) x10^3/uL MPV (9.4-12.3) fL Gran % (34.0-71.1) % Immature Gran % (Auto) (0.001-0.429) % Nucleat RBC Rel Count (0.00-0.2) % Eos # (Auto) (0.04-0.36) x10^3/uL Immature Gran # (Auto) (0.001-0.031) x10^3u/L Absolute Lymphs (auto) (1.18-3.74) x10^3/uL Absolute Monos (auto) (0.24-0.86) x10^3/uL Absolute Nucleated RBC (0.00-0.012) x10^3u/L Lymphocytes % (19.3-51.7) % Monocytes % (4.7-12.5) % Eosinophils % (0.7-5.8) % Basophils % (0.1-1.2) % Absolute Granulocytes (1.56-6.13) x10^3/uL Basophils # (0.01-0.08) x10^3/uL Sodium (135-145) mmol/L Potassium (3.5-5.1) mmol/L Chloride (98-107) mmol/L Carbon Dioxide (22-30) mmol/L Anion Gap (5-15) MEQ/L BUN (7-17) mg/dL Creatinine (0.52-1.04) mg/dL Estimated GFR ML/MIN Glucose (74-106) mg/dL Calcium (8.4-10.2) mg/dL Total Bilirubin (0.2-1.3) mg/dL AST (14-36) U/L ALT (0-35) U/L Alkaline Phosphatase (38-126) U/L Troponin I < 0.012 < 0.012 (0.000-0.033) ng/mL Serum Total Protein (6.3-8.2) g/dL Albumin (3.5-5.0) g/dL Urine Color Yellow (Yellow) Urine Appearance Clear (Clear) Urine pH 7.0 (4.6-8.0) Ur Specific [place] 1.010 (1.005-1.030) Urine Protein Negative (Negative) Urine Glucose (UA) Negative (Negative) mg/dL Urine Ketones Negative (Negative) Urine Blood Negative (Negative) Urine Nitrite Negative (Negative) Urine Bilirubin Negative (Negative) Urine Urobilinogen 1.0 A (0.2) mg/dL Ur Leukocyte Esterase Negative (Negative) U Hyaline Cast (Auto) NONE SEEN (0-2) /LPF Urine Microscopic RBC 0-2 (0-5) /HPF Urine Microscopic WBC 0-2 (0-5) /HPF Ur Epithelial Cells None Seen (None Seen) /HPF Urine Bacteria None Seen (None Seen) /HPF Urine Culture Reflexed NO (NO) 03/14/24 03/14/24 Range/Units 02:42 02:42 WBC 6.8 (3.98-10.04) x10^3/uL RBC 4.51 (3.93-5.22) x10^6/uL Hgb 15.6 (11.2-15.7) g/dL Hct 43.9 (34.1-44.9) % MCV 97.3 H (79.4-94.8) fL MCH 34.6 H (25.6-32.2) pg MCHC 35.5 (32.2-35.5) g/dL RDW 15.9 H (11.7-14.4) % Plt Count 301 (182-369) x10^3/uL MPV 9.8 (9.4-12.3) fL Gran % 72.9 H (34.0-71.1) % Immature Gran % (Auto) 0.4 (0.001-0.429) % Nucleat RBC Rel Count 0.0 (0.00-0.2) % Eos # (Auto) 0.04 (0.04-0.36) x10^3/uL Immature Gran # (Auto) 0.03 (0.001-0.031) x10^3u/L Absolute Lymphs (auto) 1.45 (1.18-3.74) x10^3/uL Absolute Monos (auto) 0.28 (0.24-0.86) x10^3/uL Absolute Nucleated RBC 0.00 (0.00-0.012) x10^3u/L Lymphocytes % 21.4 (19.3-51.7) % Monocytes % 4.1 L (4.7-12.5) % Eosinophils % 0.6 L (0.7-5.8) % Basophils % 0.6 (0.1-1.2) % Absolute Granulocytes 4.95 (1.56-6.13) x10^3/uL Basophils # 0.04 (0.01-0.08) x10^3/uL Sodium 137 (135-145) mmol/L Potassium 3.7 (3.5-5.1) mmol/L Chloride 99 (98-107) mmol/L Carbon Dioxide 24 (22-30) mmol/L Anion Gap 18.3 H (5-15) MEQ/L BUN 6 L (7-17) mg/dL Creatinine 0.59 (0.52-1.04) mg/dL Estimated GFR 119.7 ML/MIN Glucose 104 (74-106) mg/dL Calcium 9.8 (8.4-10.2) mg/dL Total Bilirubin 0.50 (0.2-1.3) mg/dL AST 35 (14-36) U/L ALT 19 (0-35) U/L Alkaline Phosphatase 76 (38-126) U/L Troponin I (0.000-0.033) ng/mL Serum Total Protein 8.8 H (6.3-8.2) g/dL Albumin 4.9 (3.5-5.0) g/dL Urine Color (Yellow) Urine Appearance (Clear) Urine pH (4.6-8.0) Ur Specific [place] (1.005-1.030) Urine Protein (Negative) Urine Glucose (UA) (Negative) mg/dL Urine Ketones (Negative) Urine Blood (Negative) Urine Nitrite (Negative) Urine Bilirubin (Negative) Urine Urobilinogen (0.2) mg/dL Ur Leukocyte Esterase (Negative) U Hyaline Cast (Auto) (0-2) /LPF Urine Microscopic RBC (0-5) /HPF Urine Microscopic WBC (0-5) /HPF Ur Epithelial Cells (None Seen) /HPF Urine Bacteria (None Seen) /HPF Urine Culture Reflexed (NO) - Progress Progress: improved Progress Note: We will obtain an ultrasound at 7 AM. MRI with contrast is a possibility however MRI is currently booked for today. MRI would not be available until 8:30 AM at the earliest. So at this point we will schedule patient to have a ultrasound at 7 AM. 03/14/24 04:[address] Hickamn who advised obtaining the pelvic ultrasound at 7 AM as planned. He also requested ordering CA 199 CEA 125 and CEA tumor markers markers ordered as advised. Once the ultrasound is completed we will contact Dr. Hickman with the results. 03/14/24 04:50 38-year-old female presents to our ED for evaluation of right lower quadrant pain. Workup reveals masses as stated above. Patient will require 7 AM ultrasound. Ultrasound ordered. Patient will be endorsed to incoming physician for final disposition. Complexity problem addressed is moderate acute complicated. No critical care time. Complexity of data reviewed and analyzed is extensive. Test ordered reviewed results analyzed and correlated clinically with history and physical exam. Management discussed with . Risk of complication and or risk of morbidity/mortality patient management is moderate. Vital stable. Time spent to discharge patient approximately 20 minutes. Plan of care established for shared decision making. No social determinants of health present impede follow- up. Portions of this note were created with voice recognition technology. There may be grammatical, spelling, punctuation or sound alike errors 03/14/24 06:44 Counseled pt/family regarding: lab results, diagnosis, need for follow-up, rad results - Departure Departure Disposition: Home Clinical Impression: Ovarian mass, right, Pelvic pain, Bulky adrenal gland, Left ovarian density Condition: Stable Critical Care Time: No Referrals: RAYMOND NELSON NP [Primary Care Provider] - Follow up/PCP as directed Additional Instructions: Discharge/Care Plan LUCINA MONTES was seen on 03/14/24 in the Emergency Room. The patient was counseled regarding Diagnosis,Lab results, Imaging studies, need for follow up and when to return to the Emergency Room. Prescriptions given: Discharge Note I have spoken with the patient and/or caregivers. I have explained the patient's condition, diagnosis and treatment plan based on the information available to me at this time. I have answered the patient's and/or caregiver's questions and addressed any concerns. The patient and/or caregivers have as good understanding of the patient's diagnosis, condition and treatment plan as can be expected at this point. The vital signs have been stable. The patient's condition is stable and appropriate for discharge from the emergency department. The patient will pursue further outpatient evaluation with the primary care physician or other designated or consulting physician as outlined in the discharge instructions. The patient and/or caregivers are agreeable to this plan of care and follow-up instructions have been explained in detail. The patient and/or caregivers have received these instruction. The patient/and or caregivers are aware that any significant change in condition or worsening of symptoms should prompt an immediate return to this or the closest emergency department or call 911.
[2024-03-14] MEDS ORDERED: TORAdol 30 mg Injection ONE ×2 (02:39→02:43)
[2024-03-14] MEDS ORDERED: Sodium Chloride 0.9% 1000 ML 1,000 ML ONE (02:39)
[2024-03-14] MEDS: Sodium Chloride 0.9% 1000 ML 1,000 ML IV STA (02:41)
[2024-03-14] MEDS: TORAdol 30 mg Injection IV ONE (02:41)
[2024-03-14 02:44] LABS: Absolute Neutrophil Ct (ANC) 4.95 x10^3/uL (1.56-6.13); BASOPHIL % 0.6 % (0.1-1.2); Basophil (Absolute #) 0.04 x10^3/uL (0.01-0.08); Eosinophil % 0.6 % (0.7-5.8); Eosinophil (Absolute #) 0.04 x10^3/uL (0.04-0.36); Hematocrit 43.9 % (34.1-44.9); Hemoglobin 15.6 g/dL (11.2-15.7); IMMATURE GRAN # 0.03 x10^3u/L (0.001-0.031); IMMATURE GRAN % 0.4 % (0.001-0.429); Lymphocyte (Absolute #) 1.45 x10^3/uL (1.18-3.74); Lymphocytes % 21.4 % (19.3-51.7); Mean Cell Volume 97.3 fL (79.4-94.8); Mean Corpuscular Hemoglobin 34.6 pg (25.6-32.2); Mean Corpuscular Hgb Concent. 35.5 g/dL (32.2-35.5); Mean Platelet Volume 9.8 fL (9.4-12.3); Monocyte (Absolute #) 0.28 x10^3/uL (0.24-0.86); Monocytes % 4.1 % (4.7-12.5); Neutrophil % 72.9 % (34.0-71.1); Platelet Count 301 x10^3/uL (182-369); Red Blood Count 4.51 x10^6/uL (3.93-5.22); Red Cell Distribution Width 15.9 % (11.7-14.4); White Blood Count 6.8 x10^3/uL (3.98-10.04)
[2024-03-14] MEDS ORDERED: Zofran 4 MG/2 ML VIAL ONE (02:45)
[2024-03-14] MEDS: Zofran 4 MG/2 ML VIAL IV ONE (02:49)
[2024-03-14 02:52] LABS: Appearance Clear (Clear); Bacteria None Seen /HPF (None Seen); Bilirubin Negative (Negative); Blood Negative (Negative); Epithelial Cells None Seen /HPF (None Seen); Glucose, Urine Negative (Negative); Hyaline Casts NONE SEEN /LPF (0-2); Ketones Negative (Negative); Leukocyte Esterase Negative (Negative); Nitrite Negative (Negative); Protein,Urine Dip Negative (Negative); RBC 0-2 /HPF (0-5); WBC 0-2 /HPF (0-5)
[2024-03-14 02:54] LABS: ADD URINE CULTURE? NO (NO)
[2024-03-14 02:57] LABS: ALBUMIN 4.9 g/dL (3.5-5.0); ANION GAP 18.3 MEQ/L (5-15); BILIRUBIN,TOTAL 0.5 mg/dL (0.2-1.3); Calcium 9.8 mg/dL (8.4-10.2); Creatinine 1 0.59 mg/dL (0.52-1.04); EST GLOMERULAR FILTRATION RATE 119.7 ML/MIN; Potassium 3.7 mmol/L (3.5-5.1); Total Protein 8.8 g/dL (6.3-8.2)
[2024-03-14] MEDS ORDERED: MORPHINE SULFATE 2 MG INJ ONE ×3 (03:38→09:42)
[2024-03-14] MEDS: MORPHINE SULFATE 2 MG INJ IV ONE ×3 (03:43→09:44)
--- NOTE | 2024-03-14 04:11 | XRAY ---
CLINICAL HISTORY: pain COMPARISON: None. TECHNIQUE: CT of the abdomen and pelvis was performed with axial images as well as sagittal and coronal reconstruction images without intravenous contrast. One of the following dose reduction techniques were utilized for this exam: Automated exposure control, adjustment of the mA and/or kV according to patient size, and use of iterative reconstruction. FINDINGS: Normal appearance of the appendix. No CT evidence of appendicitis. The right adnexal complex solid/cystic lesion is seen measuring about 6.8 x 4.3 cm in axial dimensions. It entangles the related distal ileal loops with no evidence of bowel dilatation or obstruction. There is a soft tissue density area Measuring 3.1x 2.2 cm with an internal speck of coarse calcification. No definite fat attenuated area was identified. The uterus is only partially visualized Suggesting subtotal hysterectomy with a relatively bulky hysterectomy stump. No sizable masses or collections. Average-sized liver. No focal or diffuse parenchymal abnormality. The intrahepatic biliary radicals and the bile ducts are normal. Relatively bulky left adrenal gland. The spleen, pancreas and right adrenal gland are unremarkable. The kidneys are unremarkable. They are normal in size and shape. No calculi or hydronephrosis. A right renal cortical cyst is seen. The gallbladder is normal. No pericholecystic collection or radio-dense calculi in the gall bladder. Small air-filled duodenal diverticulum noted. The ascending colon, the transverse colon and the descending colon. There is no evidence of significant enlargement of the mesenteric or retroperitoneal lymph nodes. The urinary bladder is unremarkable. The rectosigmoid colon is unremarkable. The pelvic vasculature is unremarkable. No evidence of pelvic lymphadenopathy. The osseous structures in the pelvis, lower rib cage and lumbar spine show no abnormality. No lytic or sclerotic bone lesions. Small fat-containing thecal hernia seen IMPRESSION: 1. Normal appearance of the appendix. No CT evidence of appendicitis. 2. Right adnexal complex solid/cystic lesion is seen entangling the related distal ileal loops as described, for further Evaluation would recommend a sonographic correlation or contrast-enhanced MRI study, to exclude the possibility of the neoplastic disease process. 3. There is soft tissue density area Measuring 3.1x 2.2 cm with an internal speck of coarse calcification In the left adnexa? Left ovary 4. Relatively bulky left adrenal gland. 5. The uterus is only partially visualized Suggesting subtotal hysterectomy with a relatively bulky hysterectomy stump. No sizable masses or collections. [facility] ER was called at [phone] at 3:04 AM NET TRAINER, 03/14/2024 and ER nurse Angela was informed about medical findings. Electronically Signed by: Thea Crooks MD. (03/14/2024 04:06:28 EDT)
[2024-03-14] MEDS ORDERED: MORPHINE SULFATE 4 MG INJ ONE (07:32)
[2024-03-14] MEDS: MORPHINE SULFATE 4 MG INJ IV ONE (07:33)
[2024-03-14] MEDS ORDERED: BENADRYL 50 MG/ML ONE (08:37)
[2024-03-14] MEDS: BENADRYL 50 MG/ML IV ONE (08:38)
[2024-03-14 08:42] VITALS: RESP 18; O2SAT 99
--- NOTE | 2024-03-14 09:01 | XRAY ---
Indication: Adnexal mass. Partial hysterectomy. Two-dimensional transvaginal pelvic sonogram performed. Comparison: April 06, 2022 Uterus is now surgically absent. Nonvisualization left ovary. Right ovary enlarged measuring 7.5 x 3.8 x 6.1 cm with normal color perfusion. Right ovary demonstrates at least 3 new anechoic cysts, largest 3.2 x 2.8 x 2.9 cm and smallest 1.1 x 1.0 x 1.3 cm. No suspicious solid adnexal mass or free fluid. Impression: Interval partial hysterectomy. Nonvisualization left ovary. New anechoic right ovary cyst as detailed.
[2024-03-14 10:02] VITALS: BP 136/94; PULSE 68
== END 2024-03-14 10:11 | disposition home or self-care (01) ==
LOC: ED 02:08
DX: N83.8 Other noninflammatory disorders of ovary, fallopian tube and broad ligament (principal); R10.2 Pelvic and perineal pain; R93.5 Abnormal findings on diagnostic imaging of other abdominal regions, including retroperitoneum; R10.31 Right lower quadrant pain; Z79.899 Other long term (current) drug therapy; Z72.0 Tobacco use
CPT/HCPCS: 36000; 36415; 74176; 76830; 80053; 81001; 82378; 84484; 85025; 86301; 86304; 96374; 96375; 96376; 99284; J1200; J1885; J2270; J2405

== ENCOUNTER 2024-03-18 08:08 | Emergency (ER) | payer SELFPAY ==
[2024-03-18 08:18] VITALS: PULSE 103; RESP 20; TEMP 97.3
--- NOTE | 2024-03-18 08:35 | ERPHSYRPT ---
- History of Present Illness Time Seen by Provider: 03/18/24 08:29 Historian: patient Exam Limitations: no limitations Patient Subjective Stated Complaint: RLQ abdominal pain, known ovarian cyst Triage Nursing Assessment: 38 yr old female pt arrives to ED via POV. Pt ambulatory to room 5. Pt presents with complaints of RLQ abdominal pain. Pt states that she has a known right ovarian cyst that she saw Dr. Hickman about on Tuesday. Pt states that she is going to have surgery at [facility] but is waiting to get her appointment. Pt denies N/V/D. Pt reports that she is here because of the pain. Pt is currently rating the pain as a 8 out 10[address] Pt did drive herself but states that she can have someone come get her. Pt is alert, oriented and not in distress. Physician History: This is a 38-year-old white female patient of nurse practitioner Jamaal who arrives by private vehicle but will be obtaining a ride home and presents with right lower quad abdominal pain that has been present for further several days but is worsening over the last few days. Patient has known right ovarian cystic mass that is tangled within the distal ileal loop as the likely source of her pain. Patient was seen in our emergency department 03/14/2024. She also has a left adrenal gland which she is aware of and it is described as bulky. She also was found to have a left ovarian cyst on the CAT scan impression that was reviewed by me. I, additionally, I reviewed the transvaginal ultrasound report read by the radiologist on the same date. That reads hysterectomy, nonvisualization of the left ovary. Right ovarian cyst without solid adnexal mass. Patient was seen by her materials handler on 03/16/2024. She has been referred to gynecological surgeon at a higher level care because tumor markers were elevated that were obtained during her last visit. The patient is here solely for pain relief for a few days. She is to receive a phone call on 03/19/2024 to make arrangements for her appointment which will happen in the next couple of days. Timing/Duration: day(s) (Few days), worse Activities at Onset: none Quality: sharpness Abdominal Pain Onset Location: RLQ Pain Radiation: no radiation Severity of Pain-Max: moderate Severity of Pain-Current: moderate Modifying Factors: Improves With: analgesics (The [place] 5/325 was helping her but she is out of that medication) Associated Symptoms: denies symptoms Previous symptoms: same symptoms as today, recently seen, recently treated Allergies/Adverse Reactions: prednisone Adverse Reaction (Verified 03/18/24 08:16) excessive weight gain Home Medications: Metoprolol Tartrate [Lopressor] 50 mg PO DAILY 11/23/21 [History] Venlafaxine HCl [Effexor Xr] 150 mg PO DAILY 11/23/21 [History] Hx Tetanus, Diphtheria Vaccination/Date Given: Yes Hx Influenza Vaccination/Date Given: No Hx Pneumococcal Vaccination/Date Given: No Travel Risk - International Travel Have you traveled outside of the country in past 3 weeks: No - Emerging Infectious Disease Are you exhibiting symptoms associated with any current EIDs: Yes Symptoms: Abdominal Pain - Review of Systems Constitutional: No Symptoms Eyes: No Symptoms Ears, Nose, & Throat: No Symptoms Respiratory: No Symptoms Cardiac: No Symptoms Abdominal/Gastrointestinal: Abdominal Pain (Right lower quadrant) Genitourinary Symptoms: No Symptoms Musculoskeletal: No Symptoms Skin: No Symptoms Neurological: No Symptoms Psychological: No Symptoms Endocrine: No Symptoms Hematologic/Lymphatic: No Symptoms Immunological/Allergic: No Symptoms - Past Medical History Pertinent Past Medical History: Yes Neurological History: Migraines ENT History: No Pertinent History Cardiac History: Arrhythmia Respiratory History: No Pertinent History Endocrine Medical History: No Pertinent History Musculoskeletal History: No Pertinent History GI Medical History: No Pertinent History History: No Pertinent History Psycho-Social History: Anxiety, Depression Female Reproductive Disorders: No Pertinent History Other Medical History: tension migraines - Past Surgical History Past Surgical History: Yes Neuro Surgical History: No Pertinent History Cardiac: No Pertinent History Respiratory: No Pertinent History Gastrointestinal: No Pertinent History Genitourinary: No Pertinent History Musculoskeletal: Orthopedic Surgery Female Surgical History: No Pertinent History, Dilation & Curettage, Tubal Ligation Other Surgical History: L wrist, L ankle, IUD placed and removed. failed ablation. Significant Family History: no pertinent family hx - Female History Hx Last Menstrual Period: partial hysterectomy Hx Now: No - Social History Smoking Status: Current every day smoker How long have you smoked: 15 Exposure to second hand smoke: Yes Alcohol Use: Socially Drug Use: marijuana Patient Lives Alone: No - Social Determinants of Health Will the patient participate in the screening: Yes Do you worry about a steady place to live?: No Do you have any problems with any of the following?: No known problems In the past 12 months,have you had to go without utilities?: No Transportation Issues: No Has anyone in your support network made you feel unsafe?: No Have you or anyone in your house had to go without enough: No - Nursing Vital Signs Nursing Vital Signs: Initial Vital Signs Pulse Rate 95 H 03/18/24 08:15 Blood Pressure 173/118 03/18/24 08:15 O2 Sat by Pulse Oximetry 98 03/18/24 08:15 Pain Scale Pain Intensity 8 - Physical Exam General Appearance: no apparent distress, alert, anxiety Eye Exam: PERRL/EOMI, eyes nml inspection Ears, Nose, Throat Exam: normal ENT inspection Neck Exam: normal inspection, non-tender, supple, full range of motion Respiratory Exam: normal breath sounds, lungs clear, airway intact, No chest tenderness, No respiratory distress Cardiovascular Exam: regular rate/rhythm, normal heart sounds, normal peripheral pulses Gastrointestinal/Abdomen Exam: soft, normal bowel sounds, tenderness (Lower quadrant), No guarding, No rebound Pelvic Exam: not done Rectal Exam: not done Back Exam: normal inspection, normal range of motion, No CVA tenderness Extremity Exam: normal inspection, normal range of motion, pelvis stable Neurologic Exam: alert, oriented x 3, cooperative, board writer II-XII nml as tested, nml cerebellar function, nml station & gait, sensation nml Skin Exam: normal color, warm, dry Lymphatic Exam: No adenopathy SpO2 Interpretation: normal SpO2: 99 O2 Delivery: Room Air - Course Nursing assessment & vital signs reviewed: Yes Ordered Tests: Medication Summary Discontinued Medications Generic Name Dose Route Start Last Admin Trade Name Blade PRN Reason Stop Dose Admin Hydromorphone HCl 1 mg 03/18/24 08:28 Hydromorphone 1 Mg/1ml Inj IM 03/18/24 08:29 STAT ONE Ondansetron HCl 4 mg 03/18/24 08:28 Zofran 4 Mg/Udtablet Orally Disintegrating PO 03/18/24 08:29 STAT ONE - Progress Progress: improved, pain not gone completely, re-examined Progress Note: 03/18/24 08:34 My medical decision making and the assignment of low complexity is based on my discussion with the patient and our agreement of the plan which includes no repeat laboratory radiographic studies as she was seen here 48 hours ago. I do not believe the patient needs any further workup. She is here today to obtain pain relief for the next 2 or 3 days. She is out of her [place] 5/325. I will remotely send the prescription for 10 tablets to her pharmacy. Patient has an appointment on 03/19/2024 to see a gynecologic surgeon and they will be scheduling her surgery soon after that appointment. They will then make arrangements for any further management including pain control. I think this is reasonable to provide her with an additional few days of pain control. Plain Tylenol and ibuprofen are not relieving her pain. Counseled pt/family regarding: diagnosis, need for follow-up Medical Desision Making - Diagnostic Testing Diagnostic test were ordered, analyzed, and reviewed by me: No - Risk of complications The pt has a mod risk of morbidity or mortality based on: Need for prescription drug management - Departure Departure Disposition: Home Clinical Impression: Right lower quadrant abdominal pain Condition: Stable Critical Care Time: No Referrals: RAYMOND NELSON NP [Primary Care Provider] - Follow up/PCP as directed Additional Instructions: In addition to the [place] 5/325 prescription, add ibuprofen 600 mg orally with food 3 times a day for the next 5 days. Keep your appointment with the new materials handler. Continue your other medications as prescribed. Prescriptions: Hydrocodone/APAP 5/325 [[place] 5/325 mg] 1 each PO Q6H PRN PRN #10 tablet MDD 4 PRN Reason: Pain
[2024-03-18] MEDS ORDERED: ZOFRAN ODT 4 MG ONE (08:40)
[2024-03-18] MEDS ORDERED: Hydromorphone 1 mg/ml Injection ONE (08:40)
[2024-03-18] MEDS: ZOFRAN ODT 4 MG PO ONE (08:43)
[2024-03-18] MEDS: Hydromorphone 1 mg/ml Injection IM ONE (08:44)
[2024-03-18 09:04] VITALS: BP 139/116; O2SAT 97
== END 2024-03-18 09:11 | disposition home or self-care (01) ==
LOC: ED 08:08
DX: R10.31 Right lower quadrant pain (principal); Z79.891 Long term (current) use of opiate analgesic; Z72.0 Tobacco use
CPT/HCPCS: 96372; 99283; J1170; Q0162

== ENCOUNTER 2024-03-19 08:47 | Emergency (ER) | payer SELFPAY ==
--- NOTE | 2024-03-19 08:53 | ERPHSYRPT ---
- History of Present Illness Time Seen by Provider: 03/19/24 08:52 Historian: patient Exam Limitations: no limitations Physician History: The patient, with a history of abdominal and back pain, reports that the pain medication is no longer effective. The pain, initially localized to the lower abdomen and right side of the back, has now spread up the back. The abdominal pain is described as sharp, while the back pain is more dull. The patient denies any nausea or vomiting. The last bowel movement was yesterday and was normal, with no blood in the stool. The patient has been taking stool softeners to prevent constipation. The patient also reports feeling lightheaded and has a history of a reaction to prednisone. Patient has been seen multiple times in the emergency room over the past week for severe abdominal pain. She has had CT scan of her abdomen pelvis as well as a transvaginal ultrasound. CT scan showed an ovarian mass and a boggy adrenal gland. Transvaginal ultrasound described a 7 cm ovarian cyst. She has had multiple labs including CEA and CA 125 and CA 19-9. Her CEA was mildly elevated at 8 while her CA125 and CA 19-9 were within normal limits. She was sent home with [employer] [facility], but the pain has worsened today and is unable to stand the pain any longer. Timing/Duration: week(s) (1), worse Activities at Onset: rest Quality: sharpness, stabbing Abdominal Pain Onset Location: RLQ, epigastric, flank (right) Pain Radiation: back Severity of Pain-Max: severe Severity of Pain-Current: severe Modifying Factors: Worsens With: lying down, movement, palpation Associated Symptoms: back, diaphoresis, loss of appetite, No chest pain, No diarrhea, No fever/chills, No nausea, No vomiting Previous symptoms: same symptoms as today Allergies/Adverse Reactions: prednisone Adverse Reaction (Verified 03/18/24 08:16) excessive weight gain Home Medications: Metoprolol Tartrate [Lopressor] 50 mg PO DAILY 11/23/21 [History] Venlafaxine HCl [Effexor Xr] 150 mg PO DAILY 11/23/21 [History] Hx Tetanus, Diphtheria Vaccination/Date Given: Yes Hx Influenza Vaccination/Date Given: No Hx Pneumococcal Vaccination/Date Given: No Travel Risk - Emerging Infectious Disease Are you exhibiting symptoms associated with any current EIDs: Yes Symptoms: Abdominal Pain - Review of Systems All Other Systems: Reviewed and Negative - Past Medical History Pertinent Past Medical History: Yes Neurological History: Migraines ENT History: No Pertinent History Cardiac History: Arrhythmia Respiratory History: No Pertinent History Endocrine Medical History: No Pertinent History Musculoskeletal History: No Pertinent History GI Medical History: No Pertinent History History: No Pertinent History Psycho-Social History: Anxiety, Depression Female Reproductive Disorders: No Pertinent History Other Medical History: tension migraines - Past Surgical History Past Surgical History: Yes Neuro Surgical History: No Pertinent History Cardiac: No Pertinent History Respiratory: No Pertinent History Gastrointestinal: No Pertinent History Genitourinary: No Pertinent History Musculoskeletal: Orthopedic Surgery Female Surgical History: No Pertinent History, Dilation & Curettage, Tubal Ligation Other Surgical History: L wrist, L ankle, IUD placed and removed. failed ablation. Significant Family History: no pertinent family hx - Female History Hx Last Menstrual Period: partial hysterectomy - Social History Smoking Status: Current every day smoker How long have you smoked: 15 Exposure to second hand smoke: Yes Alcohol Use: Socially Drug Use: marijuana Patient Lives Alone: No - Social Determinants of Health Will the patient participate in the screening: Yes Do you worry about a steady place to live?: No In the past 12 months,have you had to go without utilities?: No Transportation Issues: No Has anyone in your support network made you feel unsafe?: No Have you or anyone in your house had to go without enough: No - Nursing Vital Signs Nursing Vital Signs: Initial Vital Signs Temperature 97.1 F 03/19/24 08:51 Pulse Rate 90 03/19/24 08:51 Respiratory Rate 22 03/19/24 08:51 Blood Pressure 152/122 03/19/24 08:51 O2 Sat by Pulse Oximetry 98 03/19/24 08:51 Pain Scale Pain Intensity 0 - Physical Exam General Appearance: severe distress Eye Exam: eyes nml inspection Neck Exam: normal inspection, supple, full range of motion Respiratory Exam: normal breath sounds, lungs clear, airway intact, No chest tenderness, No respiratory distress Cardiovascular Exam: regular rate/rhythm, normal heart sounds, capillary refill <2 sec, No edema Gastrointestinal/Abdomen Exam: soft, tenderness (RLQ), distention, guarding, other (hypoactive bs), No mass, No pulsatile mass, No rebound, No organomegaly Back Exam: normal inspection, normal range of motion, CVA tenderness (right), No vertebral tenderness Neurologic Exam: alert, oriented x 3, cooperative Skin Exam: normal color, warm, dry, No rash SpO2 Interpretation: normal O2 Delivery: Room Air - Course Nursing assessment & vital signs reviewed: Yes - CT Exams Abdomen/Pelvis CT Interpretation: Tele-radiologist Report, Other (Redemonstration of ovarian cyst, no vascular findings found on CTA. No other acute abdominal or pelvic findings.) Ordered Tests: Active Orders 24 hr Category Date Time Status IV Insertion STAT Care 03/19/24 09:10 Completed CTA ABD/PEL W AND/OR W/O CONTR [CT] Stat Exams 03/19/24 09:12 Completed BLOOD CULTURE Stat Lab 03/19/24 09:10 Received CBC W DIFF Stat Lab 03/19/24 09:30 Completed CMP Stat Lab 03/19/24 09:30 Completed D-DIMER QUANTITATIVE Stat Lab 03/19/24 09:30 Completed ESR [Erythrocyte Sedimentation Rate] Stat Lab 03/19/24 09:12 Completed LIPASE Stat Lab 03/19/24 09:30 Completed LIPID PROFILE Stat Lab 03/19/24 09:30 Completed Lactic Acid Stat Lab 03/19/24 09:10 Completed PROCALCITONIN Stat Lab 03/19/24 09:30 Completed TROPONIN Q4H Lab 03/19/24 09:30 Completed TROPONIN Q4H Lab 03/19/24 12:55 Completed TSH [TSH, 3RD Generation] Stat Lab 03/19/24 09:30 Completed UA W/RFX UR CULTURE Stat Lab 03/19/24 09:14 Completed Medication Summary Discontinued Medications Generic Name Dose Route Start Last Admin Trade Name Blade PRN Reason Stop Dose Admin Acetaminophen 975 mg 03/19/24 09:10 03/19/24 09:18 Acetaminophen 325 Mg Tablet PO 03/19/24 09:11 975 mg STAT ONE Administration Acetaminophen Confirm 03/19/24 09:16 Acetaminophen 325 Mg Tablet Administered 03/19/24 09:17 Dose 975 mg .ROUTE .STK-MED ONE Aspirin 324 mg 03/19/24 10:21 03/19/24 11:31 Aspirin 81 Mg Tab.Chew PO 03/19/24 10:22 Not Given STAT ONE Clopidogrel Bisulfate 300 mg 03/19/24 10:21 03/19/24 11:31 Clopidogrel Bisulfate 75 Mg Tablet PO 03/19/24 10:22 Not Given STAT ONE Hydromorphone HCl 1 mg 03/19/24 09:10 03/19/24 09:18 Hydromorphone 1 Mg/1ml Inj IV 03/19/24 09:11 1 mg STAT ONE Administration Hydromorphone HCl Confirm 03/19/24 09:16 Hydromorphone 1 Mg/1ml Inj Administered 03/19/24 09:17 Dose 1 mg .ROUTE .STK-MED ONE Hydromorphone HCl 1 mg 03/19/24 11:23 03/19/24 11:33 Hydromorphone 1 Mg/1ml Inj IV 03/19/24 11:24 1 mg STAT ONE Administration Hydromorphone HCl Confirm 03/19/24 11:32 Hydromorphone 1 Mg/1ml Inj Administered 03/19/24 11:33 Dose 1 mg .ROUTE .STK-MED ONE Sodium Chloride 1,000 mls @ 999 mls/hr 03/19/24 09:10 03/19/24 10:36 Sodium Chloride 0.9% 1000 Ml IV 03/19/24 10:10 Infused .Q1H1M STA Infusion Sodium Chloride Confirm 03/19/24 09:16 Sodium Chloride 0.9% 1000 Ml Administered 03/19/24 09:17 Dose 1,000 mls @ ud .ROUTE .STK-MED ONE Ketorolac Tromethamine 30 mg 03/19/24 11:53 03/19/24 11:58 Ketorolac Tromethamine 30 Mg/Ml Inj IV 03/19/24 11:54 30 mg STAT ONE Administration Ketorolac Tromethamine Confirm 03/19/24 11:58 Ketorolac Tromethamine 30 Mg/Ml Inj Administered 03/19/24 11:59 Dose 30 mg .ROUTE .STK-MED ONE Lab/Rad Data: Laboratory Result Diagrams 03/19/24 09:30 03/19/24 09:30 Laboratory Results 03/19/24 03/19/24 03/19/24 Range/Units 12:55 09:30 09:30 WBC (3.98-10.04) x10^3/uL RBC (3.93-5.22) x10^6/uL Hgb (11.2-15.7) g/dL Hct (34.1-44.9) % MCV (79.4-94.8) fL MCH (25.6-32.2) pg MCHC (32.2-35.5) g/dL RDW (11.7-14.4) % Plt Count (182-369) x10^3/uL MPV (9.4-12.3) fL Gran % (34.0-71.1) % Immature Gran % (Auto) (0.001-0.429) % Nucleat RBC Rel Count (0.00-0.2) % Eos # (Auto) (0.04-0.36) x10^3/uL Immature Gran # (Auto) (0.001-0.031) x10^3u/L Absolute Lymphs (auto) (1.18-3.74) x10^3/uL Absolute Monos (auto) (0.24-0.86) x10^3/uL Absolute Nucleated RBC (0.00-0.012) x10^3u/L Lymphocytes % (19.3-51.7) % Monocytes % (4.7-12.5) % Eosinophils % (0.7-5.8) % Basophils % (0.1-1.2) % Absolute Granulocytes (1.56-6.13) x10^3/uL Basophils # (0.01-0.08) x10^3/uL ESR (0-20) mm/hr D-Dimer (0.0-0.50) mg/L Sodium (135-145) mmol/L Potassium (3.5-5.1) mmol/L Chloride (98-107) mmol/L Carbon Dioxide (22-30) mmol/L Anion Gap (5-15) MEQ/L BUN (7-17) mg/dL Creatinine (0.52-1.04) mg/dL Estimated GFR ML/MIN Glucose (74-106) mg/dL Hemoglobin A1c 4.78 (4.5-6.0) % Lactic Acid (0.4-2.0) Calcium (8.4-10.2) mg/dL Total Bilirubin (0.2-1.3) mg/dL AST (14-36) U/L ALT (0-35) U/L Alkaline Phosphatase (38-126) U/L Troponin I < 0.012 (0.000-0.033) ng/mL Serum Total Protein (6.3-8.2) g/dL Albumin (3.5-5.0) g/dL Triglycerides 418 H (30-150) mg/dL Cholesterol 238 H (50-200) mg/dL LDL Cholesterol 128 H (30-100) mg/dL HDL Cholesterol 52 (40-60) mg/dL Heart Disease Risk Ratio 5.0 Lipase (23-300) U/L Procalcitonin (0.030-0.080) ng/mL TSH 3rd Generation 2.991 (0.470-4.680) mIU/L Urine Color (Yellow) Urine Appearance (Clear) Urine pH (4.6-8.0) Ur Specific [place] (1.005-1.030) Urine Protein (Negative) Urine Glucose (UA) (Negative) mg/dL Urine Ketones (Negative) Urine Blood (Negative) Urine Nitrite (Negative) Urine Bilirubin (Negative) Urine Urobilinogen (0.2) mg/dL Ur Leukocyte Esterase (Negative) U Hyaline Cast (Auto) (0-2) /LPF Urine Microscopic RBC (0-5) /HPF Urine Microscopic WBC (0-5) /HPF Ur Epithelial Cells (None Seen) /HPF Urine Bacteria (None Seen) /HPF Urine Culture Reflexed (NO) 03/19/24 03/19/24 03/19/24 Range/Units 09:30 09:30 09:30 WBC (3.98-10.04) x10^3/uL RBC (3.93-5.22) x10^6/uL Hgb (11.2-15.7) g/dL Hct (34.1-44.9) % MCV (79.4-94.8) fL MCH (25.6-32.2) pg MCHC (32.2-35.5) g/dL RDW (11.7-14.4) % Plt Count (182-369) x10^3/uL MPV (9.4-12.3) fL Gran % (34.0-71.1) % Immature Gran % (Auto) (0.001-0.429) % Nucleat RBC Rel Count (0.00-0.2) % Eos # (Auto) (0.04-0.36) x10^3/uL Immature Gran # (Auto) (0.001-0.031) x10^3u/L Absolute Lymphs (auto) (1.18-3.74) x10^3/uL Absolute Monos (auto) (0.24-0.86) x10^3/uL Absolute Nucleated RBC (0.00-0.012) x10^3u/L Lymphocytes % (19.3-51.7) % Monocytes % (4.7-12.5) % Eosinophils % (0.7-5.8) % Basophils % (0.1-1.2) % Absolute Granulocytes (1.56-6.13) x10^3/uL Basophils # (0.01-0.08) x10^3/uL ESR (0-20) mm/hr D-Dimer < 0.19 (0.0-0.50) mg/L Sodium 141 (135-145) mmol/L Potassium 3.6 (3.5-5.1) mmol/L Chloride 104 (98-107) mmol/L Carbon Dioxide 25 (22-30) mmol/L Anion Gap 15.8 H (5-15) MEQ/L BUN 7 (7-17) mg/dL Creatinine 0.64 (0.52-1.04) mg/dL Estimated GFR 117.4 ML/MIN Glucose 87 (74-106) mg/dL Hemoglobin A1c (4.5-6.0) % Lactic Acid (0.4-2.0) Calcium 10.0 (8.4-10.2) mg/dL Total Bilirubin 0.40 (0.2-1.3) mg/dL AST 29 (14-36) U/L ALT 15 (0-35) U/L Alkaline Phosphatase 69 (38-126) U/L Troponin I < 0.012 (0.000-0.033) ng/mL Serum Total Protein 8.4 H (6.3-8.2) g/dL Albumin 4.6 (3.5-5.0) g/dL Triglycerides (30-150) mg/dL Cholesterol (50-200) mg/dL LDL Cholesterol (30-100) mg/dL HDL Cholesterol (40-60) mg/dL Heart Disease Risk Ratio Lipase 155 (23-300) U/L Procalcitonin 0.056 (0.030-0.080) ng/mL TSH 3rd Generation (0.470-4.680) mIU/L Urine Color (Yellow) Urine Appearance (Clear) Urine pH (4.6-8.0) Ur Specific [place] (1.005-1.030) Urine Protein (Negative) Urine Glucose (UA) (Negative) mg/dL Urine Ketones (Negative) Urine Blood (Negative) Urine Nitrite (Negative) Urine Bilirubin (Negative) Urine Urobilinogen (0.2) mg/dL Ur Leukocyte Esterase (Negative) U Hyaline Cast (Auto) (0-2) /LPF Urine Microscopic RBC (0-5) /HPF Urine Microscopic WBC (0-5) /HPF Ur Epithelial Cells (None Seen) /HPF Urine Bacteria (None Seen) /HPF Urine Culture Reflexed (NO) 03/19/24 03/19/24 03/19/24 Range/Units 09:30 09:14 09:12 WBC 6.8 (3.98-10.04) x10^3/uL RBC 4.49 (3.93-5.22) x10^6/uL Hgb 15.3 (11.2-15.7) g/dL Hct 43.2 (34.1-44.9) % MCV 96.2 H (79.4-94.8) fL MCH 34.1 H (25.6-32.2) pg MCHC 35.4 (32.2-35.5) g/dL RDW 16.3 H (11.7-14.4) % Plt Count 322 (182-369) x10^3/uL MPV 10.5 (9.4-12.3) fL Gran % 52.8 (34.0-71.1) % Immature Gran % (Auto) 0.7 H (0.001-0.429) % Nucleat RBC Rel Count 0.0 (0.00-0.2) % Eos # (Auto) 0.26 (0.04-0.36) x10^3/uL Immature Gran # (Auto) 0.05 H (0.001-0.031) x10^3u/L Absolute Lymphs (auto) 2.43 (1.18-3.74) x10^3/uL Absolute Monos (auto) 0.41 (0.24-0.86) x10^3/uL Absolute Nucleated RBC 0.00 (0.00-0.012) x10^3u/L Lymphocytes % 35.8 (19.3-51.7) % Monocytes % 6.0 (4.7-12.5) % Eosinophils % 3.8 (0.7-5.8) % Basophils % 0.9 (0.1-1.2) % Absolute Granulocytes 3.57 (1.56-6.13) x10^3/uL Basophils # 0.06 (0.01-0.08) x10^3/uL ESR 8 (0-20) mm/hr D-Dimer (0.0-0.50) mg/L Sodium (135-145) mmol/L Potassium (3.5-5.1) mmol/L Chloride (98-107) mmol/L Carbon Dioxide (22-30) mmol/L Anion Gap (5-15) MEQ/L BUN (7-17) mg/dL Creatinine (0.52-1.04) mg/dL Estimated GFR ML/MIN Glucose (74-106) mg/dL Hemoglobin A1c (4.5-6.0) % Lactic Acid (0.4-2.0) Calcium (8.4-10.2) mg/dL Total Bilirubin (0.2-1.3) mg/dL AST (14-36) U/L ALT (0-35) U/L Alkaline Phosphatase (38-126) U/L Troponin I (0.000-0.033) ng/mL Serum Total Protein (6.3-8.2) g/dL Albumin (3.5-5.0) g/dL Triglycerides (30-150) mg/dL Cholesterol (50-200) mg/dL LDL Cholesterol (30-100) mg/dL HDL Cholesterol (40-60) mg/dL Heart Disease Risk Ratio Lipase (23-300) U/L Procalcitonin (0.030-0.080) ng/mL TSH 3rd Generation (0.470-4.680) mIU/L Urine Color Yellow (Yellow) Urine Appearance Clear (Clear) Urine pH 5.5 (4.6-8.0) Ur Specific [place] 1.020 (1.005-1.030) Urine Protein Negative (Negative) Urine Glucose (UA) Negative (Negative) mg/dL Urine Ketones Negative (Negative) Urine Blood Negative (Negative) Urine Nitrite Negative (Negative) Urine Bilirubin Negative (Negative) Urine Urobilinogen 0.2 (0.2) mg/dL Ur Leukocyte Esterase Negative (Negative) U Hyaline Cast (Auto) NONE SEEN (0-2) /LPF Urine Microscopic RBC 0-2 (0-5) /HPF Urine Microscopic WBC 3-5 (0-5) /HPF Ur Epithelial Cells Moderate A (None Seen) /HPF Urine Bacteria Few A (None Seen) /HPF Urine Culture Reflexed NO (NO) 03/19/24 Range/Units 09:10 WBC (3.98-10.04) x10^3/uL RBC (3.93-5.22) x10^6/uL Hgb (11.2-15.7) g/dL Hct (34.1-44.9) % MCV (79.4-94.8) fL MCH (25.6-32.2) pg MCHC (32.2-35.5) g/dL RDW (11.7-14.4) % Plt Count (182-369) x10^3/uL MPV (9.4-12.3) fL Gran % (34.0-71.1) % Immature Gran % (Auto) (0.001-0.429) % Nucleat RBC Rel Count (0.00-0.2) % Eos # (Auto) (0.04-0.36) x10^3/uL Immature Gran # (Auto) (0.001-0.031) x10^3u/L Absolute Lymphs (auto) (1.18-3.74) x10^3/uL Absolute Monos (auto) (0.24-0.86) x10^3/uL Absolute Nucleated RBC (0.00-0.012) x10^3u/L Lymphocytes % (19.3-51.7) % Monocytes % (4.7-12.5) % Eosinophils % (0.7-5.8) % Basophils % (0.1-1.2) % Absolute Granulocytes (1.56-6.13) x10^3/uL Basophils # (0.01-0.08) x10^3/uL ESR (0-20) mm/hr D-Dimer (0.0-0.50) mg/L Sodium (135-145) mmol/L Potassium (3.5-5.1) mmol/L Chloride (98-107) mmol/L Carbon Dioxide (22-30) mmol/L Anion Gap (5-15) MEQ/L BUN (7-17) mg/dL Creatinine (0.52-1.04) mg/dL Estimated GFR ML/MIN Glucose (74-106) mg/dL Hemoglobin A1c (4.5-6.0) % Lactic Acid 2.0 (0.4-2.0) Calcium (8.4-10.2) mg/dL Total Bilirubin (0.2-1.3) mg/dL AST (14-36) U/L ALT (0-35) U/L Alkaline Phosphatase (38-126) U/L Troponin I (0.000-0.033) ng/mL Serum Total Protein (6.3-8.2) g/dL Albumin (3.5-5.0) g/dL Triglycerides (30-150) mg/dL Cholesterol (50-200) mg/dL LDL Cholesterol (30-100) mg/dL HDL Cholesterol (40-60) mg/dL Heart Disease Risk Ratio Lipase (23-300) U/L Procalcitonin (0.030-0.080) ng/mL TSH 3rd Generation (0.470-4.680) mIU/L Urine Color (Yellow) Urine Appearance (Clear) Urine pH (4.6-8.0) Ur Specific [place] (1.005-1.030) Urine Protein (Negative) Urine Glucose (UA) (Negative) mg/dL Urine Ketones (Negative) Urine Blood (Negative) Urine Nitrite (Negative) Urine Bilirubin (Negative) Urine Urobilinogen (0.2) mg/dL Ur Leukocyte Esterase (Negative) U Hyaline Cast (Auto) (0-2) /LPF Urine Microscopic RBC (0-5) /HPF Urine Microscopic WBC (0-5) /HPF Ur Epithelial Cells (None Seen) /HPF Urine Bacteria (None Seen) /HPF Urine Culture Reflexed (NO) - Progress Progress: pain not gone completely Progress Note: 03/19/24 09:25 Abdominal and Back Pain: Sharp pain in lower abdomen and dull pain in right side of back. Pain is not relieved by current medication. No nausea, vomiting, numbness, or tingling. Bowel movements are normal with use of stool softeners. -Order repeat CT scan to assess for any new findings. -Repeat labs, will get esr, lactate, blood cx on top of basic findings Adrenal Gland Thickening: Noted on previous imaging. No discrete mass identified. Cancer markers, including CEA, were normal. -Plan for further adrenal workup. -Rescan to assess for any changes in adrenal gland. 03/19/24 10:19 Troponin came back elevated at 0.200 we will order a stat EKG at this time. 03/19/24 11:19 Received notification from lab that the troponin was in error. D-dimer was within normal limits. CTA of the abdomen and pelvis redemonstrated ovarian cyst without any other significant findings. Patient continues to have severe abdominal pain that responded mildly to 1 mg of Dilaudid. Exam reperformed showing right lower quadrant tenderness and fullness. No tenderness to palpation over the ASIS or AIIS. Scour test negative, Stinchfield negative GILLIAN, FADIR, straight leg negative all of these negative testing move away from intra-articular hip pathology. Will give another dose of Dilaudid at this time. Discussed case with patient's OBGYN Dr. Hickman who recommended proceeding to ER at [facility] for PHYSICS AND ASTRONOMY PROFESSOR oncology consultation if pain worsens after discharge. Counseled pt/family regarding: lab results, need for follow-up, rad results Medical Desision Making - Diagnostic Testing Diagnostic test were ordered, analyzed, and reviewed by me: Yes Radiological Interpretation: Interpreted by me, Reviewed by me, Teleradiologist Report - Risk of complications The pt has a mod risk of morbidity or mortality based on: Need for prescription drug management - Departure Departure Disposition: Home Clinical Impression: Abdominal pain, Ovarian mass, right, Right lower quadrant abdominal pain, Status post laparoscopic supracervical hysterectomy Condition: Fair Critical Care Time: No Referrals: RAYMOND NELSON NP [Primary Care Provider] - Follow up/PCP as directed Instructions: Severe Abdominal Pain, Adult (DC) Prescriptions: Hydrocodone/Acetaminophen [Hydrocodone-Acetamin 10-325 mg] 1 each PO Q6H PRN 4 Days #16 tablet MDD 4 tab PRN Reason: Pain Ketorolac Trometh 10 mg Tab [TORAdol 10 MG TABLET] 10 mg PO TID PRN 10 Days #30 tablet MDD 3 tab PRN Reason: Pain
[2024-03-19 08:59] VITALS: TEMP 97.1
[2024-03-19] MEDS ORDERED: Hydromorphone 1 mg/ml Injection ONE ×2 (09:16→11:32)
[2024-03-19] MEDS ORDERED: Sodium Chloride 0.9% 1000 ML 1,000 ML ONE (09:16)
[2024-03-19] MEDS ORDERED: TYLENOL 325 MG ONE (09:16)
[2024-03-19] MEDS: TYLENOL 325 MG PO ONE (09:18)
[2024-03-19] MEDS: Sodium Chloride 0.9% 1000 ML 1,000 ML IV STA (09:18)
[2024-03-19] MEDS: Hydromorphone 1 mg/ml Injection IV ONE ×2 (09:18→11:33)
[2024-03-19 09:45] LABS: Absolute Neutrophil Ct (ANC) 3.57 x10^3/uL (1.56-6.13); BASOPHIL % 0.9 % (0.1-1.2); Basophil (Absolute #) 0.06 x10^3/uL (0.01-0.08); Eosinophil % 3.8 % (0.7-5.8); Eosinophil (Absolute #) 0.26 x10^3/uL (0.04-0.36); Hematocrit 43.2 % (34.1-44.9); Hemoglobin 15.3 g/dL (11.2-15.7); IMMATURE GRAN # 0.05 x10^3u/L (0.001-0.031); IMMATURE GRAN % 0.7 % (0.001-0.429); Lymphocyte (Absolute #) 2.43 x10^3/uL (1.18-3.74); Lymphocytes % 35.8 % (19.3-51.7); Mean Cell Volume 96.2 fL (79.4-94.8); Mean Corpuscular Hemoglobin 34.1 pg (25.6-32.2); Mean Corpuscular Hgb Concent. 35.4 g/dL (32.2-35.5); Mean Platelet Volume 10.5 fL (9.4-12.3); Monocyte (Absolute #) 0.41 x10^3/uL (0.24-0.86); Neutrophil % 52.8 % (34.0-71.1); Platelet Count 322 x10^3/uL (182-369); Red Blood Count 4.49 x10^6/uL (3.93-5.22); Red Cell Distribution Width 16.3 % (11.7-14.4); White Blood Count 6.8 x10^3/uL (3.98-10.04)
[2024-03-19 09:58] LABS: Appearance Clear (Clear); Bacteria Few /HPF (None Seen); Bilirubin Negative (Negative); Blood Negative (Negative); Epithelial Cells Moderate /HPF (None Seen); Glucose, Urine Negative (Negative); Hyaline Casts NONE SEEN /LPF (0-2); Ketones Negative (Negative); Leukocyte Esterase Negative (Negative); Nitrite Negative (Negative); Ph 5.5 (4.6-8.0); Protein,Urine Dip Negative (Negative); RBC 0-2 /HPF (0-5); Urobilinogen 0.2 mg/dL (0.2)
[2024-03-19 10:01] LABS: ADD URINE CULTURE? NO (NO)
[2024-03-19 10:18] LABS: ALBUMIN 4.6 g/dL (3.5-5.0); ANION GAP 15.8 MEQ/L (5-15); BILIRUBIN,TOTAL 0.4 mg/dL (0.2-1.3); Creatinine 1 0.64 mg/dL (0.52-1.04); EST GLOMERULAR FILTRATION RATE 117.4 ML/MIN; PROCALCITONIN 0.056 ng/mL (0.030-0.080); Potassium 3.6 mmol/L (3.5-5.1); Total Protein 8.4 g/dL (6.3-8.2)
--- NOTE | 2024-03-19 10:36 | XRAY ---
Indication: Right lower quadrant/right flank pain. Conventional contrast enhanced CTA abdomen/pelvis performed using 80 cc Isovue 370 contrast. 2-D sagittal and coronal reformatted images obtained. Additional 3-D reformatted images obtained using separate work station. Comparison: CT abdomen/pelvis March 14, 2024 Visualized aorta remains normal in course and caliber without aneurysm/dissection. Distal abdominal aorta demonstrates very minimal eccentric soft arteriosclerotic disease not seen on previous noncontrast exam. Normal CTA appearance to the celiac, superior mesenteric, left/right main renal, and inferior mesenteric arteries. Lung bases demonstrates incidental bilateral dependent atelectasis and small left lower lobe calcified granuloma. No infiltrate or effusion. Heart not enlarged. Noncontrasted stomach and bowel loops remain nonobstructed again with normal appendix. Again a partial hysterectomy. Right ovary remains enlarged again with recent ultrasound proven anechoic cysts, 3.2 x 2.8 x 2.9 cm. Stable 9 mm right mid renal cyst. No free fluid/air. Remaining liver, gallbladder, pancreas, spleen, adrenal glands, kidneys, ureters, and bladder are unremarkable. No pathologic retroperitoneal lymphadenopathy. Impression: 1. 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 Remaining CTA abdomen/pelvis is normal. 2. Grossly stable enlarged right ovary with ultrasound proven anechoic cysts. 3. Incidental small right renal cyst and left lower lobe calcified granuloma.
[2024-03-19 11:18] LABS: TSH, 3RD Generation 2.991 mIU/L (0.470-4.680)
[2024-03-19 11:27] VITALS: O2SAT 100
[2024-03-19] MEDS: BABY ASPIRIN 81 MG CHEW PO ONE (11:31)
[2024-03-19] MEDS: PLAVIX Tablet PO ONE (11:31)
[2024-03-19] MEDS ORDERED: TORAdol 30 mg Injection ONE (11:58)
[2024-03-19] MEDS: TORAdol 30 mg Injection IV ONE (11:58)
[2024-03-19 13:23] VITALS: BP 130/89; PULSE 75; RESP 16
== END 2024-03-19 13:50 | disposition home or self-care (01) ==
LOC: ED 08:47
DX: R10.9 Unspecified abdominal pain (principal); N83.8 Other noninflammatory disorders of ovary, fallopian tube and broad ligament; R10.31 Right lower quadrant pain; Z90.711 Acquired absence of uterus with remaining cervical stump; M54.9 Dorsalgia, unspecified; Z79.891 Long term (current) use of opiate analgesic; Z79.899 Other long term (current) drug therapy; Z72.0 Tobacco use
CPT/HCPCS: 36000; 36415; 74174; 80053; 80061; 81001; 83036; 83605; 83690; 83721; 84145; 84443; 84484; 85025; 85379; 85652; 87040; 96360; 96374; 96375; 96376; 99284; J1170; J1885; A9270-GY

== ENCOUNTER 2024-05-10 09:23 | Emergency (ER) | payer OTHER ==
--- NOTE | 2024-05-10 09:33 | ERPHSYRPT ---
- History of Present Illness Time Seen by Provider: 05/10/24 09:33 Source: patient Exam Limitations: no limitations Physician History: This is a 38-year-old white female patient who was sent to us by her [employer] consultant who ordered lab work yesterday including CMP, magnesium and urinalysis. The urinalysis was performed in the office. They were performed at approximately 2:50 PM yesterday (05/09/2024). Patient was notified today of abnormalities in her labs. Patient is completely asymptomatic. She was told by the office of her [employer] consultant to follow-up in her primary care provider's office, nurse practitioner Jamaal. However she could not get in and therefore she was to come to the emergency department for IV fluids. We did not receive any type of phone call from the [employer] consultant or the primary care provider. Again, the patient is completely asymptomatic. I reviewed and interpreted her lab results from yesterday. She does not have any emergent findings. However, she does have elevated liver function tests and her anion gap is elevated. She reports that there were ketones in her urine. Timing/Duration: yesterday Severity: mild Modifying Factors: Improves With: nothing Associated Symptoms: denies symptoms Allergies/Adverse Reactions: prednisone Adverse Reaction (Verified 05/10/24 09:50) excessive weight gain Home Medications: Metoprolol Tartrate [Lopressor] 50 mg PO DAILY 11/23/21 [History] Venlafaxine HCl [Effexor Xr] 150 mg PO DAILY 11/23/21 [History] Estradiol [Vivelle-Dot] 1 patch TOP 2XW 05/10/24 [History] Oxybutynin Chloride Xl 5 mg [Ditropan XL 5 MG] 5 mg PO DAILY 05/10/24 [History] Hx Tetanus, Diphtheria Vaccination/Date Given: Yes Hx Influenza Vaccination/Date Given: No Hx Pneumococcal Vaccination/Date Given: No Travel Risk - International Travel Have you traveled outside of the country in past 3 weeks: No - Emerging Infectious Disease Are you exhibiting symptoms associated with any current EIDs: Yes Symptoms: Abdominal Pain - Review of Systems Constitutional: No Symptoms Eyes: No Symptoms Ears, Nose, & Throat: No Symptoms Respiratory: No Symptoms Cardiac: No Symptoms Abdominal/Gastrointestinal: No Symptoms Genitourinary Symptoms: No Symptoms Musculoskeletal: No Symptoms Skin: No Symptoms Neurological: No Symptoms Psychological: No Symptoms Endocrine: No Symptoms Hematologic/Lymphatic: No Symptoms Immunological/Allergic: No Symptoms All Other Systems: Reviewed and Negative - Past Medical History Pertinent Past Medical History: Yes Neurological History: Migraines ENT History: No Pertinent History Cardiac History: Arrhythmia Respiratory History: No Pertinent History Endocrine Medical History: No Pertinent History Musculoskeletal History: No Pertinent History GI Medical History: No Pertinent History History: No Pertinent History Psycho-Social History: Anxiety, Depression Female Reproductive Disorders: No Pertinent History Other Medical History: tension migraines - Past Surgical History Past Surgical History: Yes Neuro Surgical History: No Pertinent History Cardiac: No Pertinent History Respiratory: No Pertinent History Gastrointestinal: No Pertinent History Genitourinary: No Pertinent History Musculoskeletal: Orthopedic Surgery Female Surgical History: No Pertinent History, Dilation & Curettage, Tubal Ligation Other Surgical History: L wrist, L ankle, IUD placed and removed. failed ablation. Significant Family History: no pertinent family hx - Female History Hx Last Menstrual Period: partial hysterectomy - Social History Smoking Status: Current every day smoker How long have you smoked: 15 Exposure to second hand smoke: Yes Alcohol Use: Socially Drug Use: marijuana Patient Lives Alone: No - Social Determinants of Health Will the patient participate in the screening: Yes Do you worry about a steady place to live?: No In the past 12 months,have you had to go without utilities?: No Transportation Issues: No Has anyone in your support network made you feel unsafe?: No Have you or anyone in your house had to go without enough: No - Nursing Vital Signs Nursing Vital Signs: Initial Vital Signs Blood Pressure 144/116 05/10/24 09:40 O2 Sat by Pulse Oximetry 98 05/10/24 09:40 Pain Scale Pain Intensity 0 - Physical Exam General Appearance: no apparent distress, alert, anxiety Eye Exam: PERRL/EOMI, eyes nml inspection Ears, Nose, Throat Exam: normal ENT inspection, moist mucous membranes Neck Exam: normal inspection, non-tender, supple, full range of motion Respiratory Exam: normal breath sounds, lungs clear, airway intact, No chest tenderness, No respiratory distress Cardiovascular Exam: regular rate/rhythm, normal heart sounds, normal peripheral pulses Gastrointestinal/Abdomen Exam: soft, normal bowel sounds, No tenderness Pelvic Exam: not done Rectal Exam: not done Back Exam: normal inspection, normal range of motion, No CVA tenderness, No vertebral tenderness Extremity Exam: normal inspection, normal range of motion, pelvis stable Neurologic Exam: alert, oriented x 3, cooperative, 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 tested, nml cerebellar function, nml station & gait, sensation nml Skin Exam: normal color, warm, dry Lymphatic Exam: No adenopathy SpO2 Interpretation: normal O2 Delivery: Room Air - Course Nursing assessment & vital signs reviewed: Yes Ordered Tests: Active Orders 24 hr Category Date Time Status IV Insertion STAT Care 05/10/24 09:38 Active CMP Stat Lab 05/10/24 09:40 Completed CULTURE,URINE Stat Lab 05/10/24 09:40 Received UA W/RFX UR CULTURE Stat Lab 05/10/24 09:40 Completed Medication Summary Generic Name Dose Route Start Last Admin Trade Name Freq PRN Reason Stop Dose Admin Sodium Chloride 1,000 mls @ 999 mls/hr 05/10/24 09:38 05/10/24 09:55 Sodium Chloride 0.9% 1000 Ml IV 05/10/24 10:38 999 mls/hr .Q1H1M STA Administration Discontinued Medications Generic Name Dose Route Start Last Admin Trade Name Freq PRN Reason Stop Dose Admin Sodium Chloride Confirm 05/10/24 09:55 Sodium Chloride 0.9% 1000 Ml Administered 05/10/24 09:56 Dose 1,000 mls @ ud .ROUTE .STK-MED ONE Lab/Rad Data: Laboratory Result Diagrams 05/10/24 09:40 Laboratory Results 05/10/24 05/10/24 Range/Units 09:40 09:40 Sodium 135 (135-145) mmol/L Potassium 3.6 (3.5-5.1) mmol/L Chloride 96 L (98-107) mmol/L Carbon Dioxide 26 (22-30) mmol/L Anion Gap 16.3 H (5-15) MEQ/L BUN 7 (7-17) mg/dL Creatinine 0.64 (0.52-1.04) mg/dL Estimated GFR 117.4 ML/MIN Glucose 108 H (74-106) mg/dL Calcium 10.1 (8.4-10.2) mg/dL Total Bilirubin 1.70 H (0.2-1.3) mg/dL AST 103 H (14-36) U/L ALT 109 H (0-35) U/L Alkaline Phosphatase 94 (38-126) U/L Serum Total Protein 8.5 H (6.3-8.2) g/dL Albumin 4.9 (3.5-5.0) g/dL Urine Color Dark Yellow A (Yellow) Urine Appearance Cloudy A (Clear) Urine pH 6.0 (4.6-8.0) Ur Specific Se[place]ert 1.020 (1.005-1.030) Urine Protein 30 (Negative) Urine Glucose (UA) Negative (Negative) mg/dL Urine Ketones 15 A (Negative) Urine Blood Large A (Negative) Urine Nitrite Negative (Negative) Urine Bilirubin Moderate A (Negative) Urine Urobilinogen 1.0 A (0.2) mg/dL Ur Leukocyte Esterase Small A (Negative) U Hyaline Cast (Auto) 3-5 A (0-2) /LPF Urine Microscopic RBC 3-5 (0-5) /HPF Urine Microscopic WBC 21-50 A (0-5) /HPF Ur Epithelial Cells Many A (None Seen) /HPF Urine Bacteria Moderate A (None Seen) /HPF Urine Culture Reflexed YES (NO) - Progress Progress: unchanged Progress Note: 05/10/24 09:43 My medical decision making and the assignment of moderate complexity of this patient's medical issue today is based on review of the patient's past medical history, review the patient's medication list, review patient drug allergy list, history present illness and physical findings on examination. The workup today includes placement of intravenous line, infusion of normal saline solution, CMP and urinalysis. We are also basing the workup on the word of the patient who states that she was to receive intravenous fluids. I interpreted the patient's laboratory data results from yesterday as abnormal and elevated but certainly not emergent level. We will compare yesterday's lab results to today's. 05/10/24 10:31 I interpreted the patient's laboratory data results. Based on the laboratory data results, the patient has a significant urinary tract infection. Although she has elevated liver function test, they are improved from yesterday's test and not emergent. Patient also has evidence of mild dehydration with ketonuria. Patient is receiving a liter of normal saline solution. Counseled pt/family regarding: lab results, diagnosis, need for follow-up Medical Desision Making - Diagnostic Testing Diagnostic test were ordered, analyzed, and reviewed by me: Yes - Risk of complications The pt has a mod risk of morbidity or mortality based on: Need for prescription drug management - Departure Departure Disposition: Home Clinical Impression: Mild dehydration, Elevated liver enzymes, UTI (urinary tract infection) Condition: Stable Critical Care Time: No Referrals: RAYMOND NELSON NP [Primary Care Provider] - Follow up/PCP as directed Additional Instructions: Do not drink alcoholic beverages. Take your antibiotics as prescribed. Call your primary care provider today, 05/10/2024, to make arrangements for follow-up appointment to be seen in the next 3 to 5 days. Prescriptions: Ciprofloxacin [Cipro 500 MG] 500 mg PO BID #14 tablet
[2024-05-10 09:42] VITALS: TEMP 97.3
[2024-05-10] MEDS ORDERED: Sodium Chloride 0.9% 1000 ML 1,000 ML ONE (09:55)
[2024-05-10] MEDS: Sodium Chloride 0.9% 1000 ML 1,000 ML IV STA (09:55)
[2024-05-10 10:12] LABS: ALBUMIN 4.9 g/dL (3.5-5.0); ANION GAP 16.3 MEQ/L (5-15); BILIRUBIN,TOTAL 1.7 mg/dL (0.2-1.3); Calcium 10.1 mg/dL (8.4-10.2); Creatinine 1 0.64 mg/dL (0.52-1.04); EST GLOMERULAR FILTRATION RATE 117.4 ML/MIN; Potassium 3.6 mmol/L (3.5-5.1); Total Protein 8.5 g/dL (6.3-8.2)
[2024-05-10 10:18] LABS: Appearance Cloudy (Clear); Bacteria Moderate /HPF (None Seen); Bilirubin Moderate (Negative); Blood Large (Negative); Epithelial Cells Many /HPF (None Seen); Glucose, Urine Negative (Negative); Ketones 15 (Negative); Leukocyte Esterase Small (Negative); Nitrite Negative (Negative); Protein,Urine Dip 30 (Negative); WBC 21-50 /HPF (0-5)
[2024-05-10 10:20] LABS: ADD URINE CULTURE? YES (NO)
[2024-05-10] MEDS: ROCEPHIN 1 GM / 100 ML NaCl 1 GM/100 ML IVPB IV ONE (10:33)
[2024-05-10] MEDS ORDERED: ROCEPHIN 1 GM / 100 ML NaCl 1 GM/100 ML IVPB IV ONE (10:33)
[2024-05-10 11:08] VITALS: BP 124/97; PULSE 88; O2SAT 99
== END 2024-05-10 11:15 | disposition home or self-care (01) ==
LOC: ED 09:23
DX: E86.0 Dehydration (principal); R74.8 Abnormal levels of other serum enzymes; N39.0 Urinary tract infection, site not specified; Z79.899 Other long term (current) drug therapy; Z72.0 Tobacco use
CPT/HCPCS: 36000; 36415; 80053; 81001; 87086; 96360; 96365; 99284; J0696

== ENCOUNTER 2024-07-04 12:59 | Observation (INO) | payer OTHER ==
[2024-07-04 13:51] LABS: Absolute Neutrophil Ct (ANC) 8.01 x10^3/uL (1.56-6.13); BASOPHIL % 0.4 % (0.1-1.2); Basophil (Absolute #) 0.04 x10^3/uL (0.01-0.08); Eosinophil % 0.1 % (0.7-5.8); Eosinophil (Absolute #) 0.01 x10^3/uL (0.04-0.36); Hematocrit 44.7 % (34.1-44.9); Hemoglobin 15.9 g/dL (11.2-15.7); IMMATURE GRAN # 0.04 x10^3u/L (0.001-0.031); IMMATURE GRAN % 0.4 % (0.001-0.429); Lymphocyte (Absolute #) 1.29 x10^3/uL (1.18-3.74); Lymphocytes % 12.8 % (19.3-51.7); Mean Cell Volume 90.3 fL (79.4-94.8); Mean Corpuscular Hemoglobin 32.1 pg (25.6-32.2); Mean Corpuscular Hgb Concent. 35.6 g/dL (32.2-35.5); Mean Platelet Volume 10.9 fL (9.4-12.3); Monocytes % 6.9 % (4.7-12.5); Neutrophil % 79.4 % (34.0-71.1); Platelet Count 328 x10^3/uL (182-369); Red Blood Count 4.95 x10^6/uL (3.93-5.22); Red Cell Distribution Width 13.2 % (11.7-14.4); White Blood Count 10.1 x10^3/uL (3.98-10.04)
[2024-07-04] MEDS ORDERED: Zofran 4 MG/2 ML VIAL ONE (13:51)
[2024-07-04] MEDS ORDERED: ANTIVERT 25 MG ONE (13:51)
[2024-07-04] MEDS ORDERED: Sodium Chloride 0.9% 1000 ML 1,000 ML ONE (13:51)
[2024-07-04] MEDS: ANTIVERT 25 MG PO ONE (14:02)
[2024-07-04] MEDS: Sodium Chloride 0.9% 1000 ML 1,000 ML IV STA (14:03)
[2024-07-04 14:04] LABS: ALBUMIN 5.6 g/dL (3.5-5.0); ANION GAP 29.5 MEQ/L (5-15); BILIRUBIN,TOTAL 1.7 mg/dL (0.2-1.3); Calcium 11.8 mg/dL (8.4-10.2); Creatinine 1 1.53 mg/dL (0.52-1.04); MAGNESIUM 1.8 mg/dL (1.6-2.3); Potassium 3.9 mmol/L (3.5-5.1); Total Protein 9.4 g/dL (6.3-8.2)
[2024-07-04] MEDS: Zofran 4 MG/2 ML VIAL IV ONE (14:04)
--- NOTE | 2024-07-04 14:23 | XRAY ---
Indication: Dizziness and headache following fall 3 days ago. Multiple contiguous axial images obtained through the head without contrast. Comparison: August 17, 2015 Normal appearing brain parenchyma, ventricles, and bony calvarium. Visualized paranasal sinuses and mastoid air cells are clear. Impression: Continued normal CT head without contrast exam.
[2024-07-04 14:34] LABS: Appearance Cloudy (Clear); Bacteria None Seen /HPF (None Seen); Bilirubin Negative (Negative); Blood Negative (Negative); Epithelial Cells Few /HPF (None Seen); Glucose, Urine Negative (Negative); Hyaline Casts 20-50 /LPF (0-2); Ketones 40 (Negative); Leukocyte Esterase Negative (Negative); Nitrite Negative (Negative); Protein,Urine Dip 30 (Negative); WBC 0-2 /HPF (0-5)
--- NOTE | 2024-07-04 16:02 | ERPHSYRPT ---
- History of Present Illness Time Seen by Provider: 07/04/24 13:03 Source: patient Exam Limitations: no limitations Patient Subjective Stated Complaint: pt here for a fall on tuesday she states she was carrying groceries up stairs and tripped, she states she hit head on step and passed out. no co dizziness and nausea, Triage Nursing Assessment: pt alert, walked in, resp easy skin w/d/p.has abrsion to nose, abrasions to arms. moves all ext well, no edema noted Physician History: 38 years old female with history of hypertension, anxiety presented in the ER for evaluation of dizziness starting after she took a fall while going upstairs 3 days ago with questionable loss of consciousness. Patient had a superficial abrasion/laceration of the bridge of the nose. Patient reports feeling lightheaded as if she is going to fall with standing up with associated nausea and multiple episodes of nonprojectile, nonbilious vomiting. She denies any chest pain, abdominal pain/difficulty breathing. Patient feels weak fatigued tired and dehydrated. Because of nausea vomiting she has not been able to hold her medications specially metoprolol and is tachycardic on presentation in the ER. Allergies/Adverse Reactions: prednisone Adverse Reaction (Verified 07/04/24 13:07) excessive weight gain Home Medications: Metoprolol Tartrate [Lopressor] 50 mg PO DAILY 11/23/21 [History] Venlafaxine HCl [Effexor Xr] 150 mg PO DAILY 11/23/21 [History] Estradiol [Vivelle-Dot] 1 patch TOP 2XW 05/10/24 [History] Oxybutynin Chloride Xl 5 mg [Ditropan XL 5 MG] 5 mg PO DAILY 05/10/24 [History] Hx Tetanus, Diphtheria Vaccination/Date Given: Yes Hx Influenza Vaccination/Date Given: No Hx Pneumococcal Vaccination/Date Given: No Immunizations Up to Date: Yes Travel Risk - International Travel Have you traveled outside of the country in past 3 weeks: No - Emerging Infectious Disease Are you exhibiting symptoms associated with any current EIDs: No Symptoms: Abdominal Pain - Review of Systems Constitutional: Fatigue, Weakness Eyes: No Symptoms Ears, Nose, & Throat: No Symptoms Respiratory: No Symptoms Cardiac: No Symptoms Abdominal/Gastrointestinal: Nausea, Vomiting Genitourinary Symptoms: No Symptoms Musculoskeletal: No Symptoms Skin: Skin Lesions Neurological: Dizziness Endocrine: No Symptoms Hematologic/Lymphatic: No Symptoms Immunological/Allergic: No Symptoms - Past Medical History Pertinent Past Medical History: Yes Neurological History: Migraines ENT History: No Pertinent History Cardiac History: Arrhythmia Respiratory History: No Pertinent History Endocrine Medical History: No Pertinent History Musculoskeletal History: No Pertinent History GI Medical History: No Pertinent History History: No Pertinent History Psycho-Social History: Anxiety, Depression Female Reproductive Disorders: No Pertinent History Other Medical History: tension migraines - Past Surgical History Past Surgical History: Yes Neuro Surgical History: No Pertinent History Cardiac: No Pertinent History Respiratory: No Pertinent History Gastrointestinal: No Pertinent History Genitourinary: No Pertinent History Musculoskeletal: Orthopedic Surgery Female Surgical History: Hysterectomy, Dilation & Curettage, Tubal Ligation Other Surgical History: L wrist, L ankle, IUD placed and removed. failed ablation. Significant Family History: no pertinent family hx - Female History Hx Last Menstrual Period: hyster Hx Now: No - Social History Smoking Status: Current every day smoker How long have you smoked: 15 Exposure to second hand smoke: Yes Alcohol Use: Socially Drug Use: marijuana Patient Lives Alone: No - Social Determinants of Health Will the patient participate in the screening: Yes Do you worry about a steady place to live?: No Do you have any problems with any of the following?: No known problems In the past 12 months,have you had to go without utilities?: No Transportation Issues: No Has anyone in your support network made you feel unsafe?: No Have you or anyone in your house had to go without enough: No - Nursing Vital Signs Nursing Vital Signs: Initial Vital Signs Temperature 97.8 F 07/04/24 13:18 Pulse Rate 113 H 07/04/24 13:18 Respiratory Rate 18 07/04/24 13:18 Blood Pressure 165/100 07/04/24 13:18 O2 Sat by Pulse Oximetry 98 07/04/24 13:18 Pain Scale Pain Intensity 4 - Physical Exam General Appearance: no apparent distress, alert, anxiety Eye Exam: PERRL/EOMI Ears, Nose, Throat Exam: pharynx normal, moist mucous membranes, other (Healing scar on the bridge of nose with no crepitus.) Neck Exam: normal inspection, non-tender, supple, full range of motion Respiratory Exam: normal breath sounds, lungs clear Cardiovascular Exam: normal heart sounds, tachycardia Gastrointestinal/Abdomen Exam: soft, normal bowel sounds, No tenderness, No distention, No guarding Back Exam: normal inspection, normal range of motion Extremity Exam: normal inspection, normal range of motion Neurologic Exam: alert, oriented x 3, cooperative, gauge 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-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 tested, nml cerebellar function, nml station & gait, sensation nml, No normal mood/affect (Anxious), No motor deficits Skin Exam: normal color SpO2 Interpretation: normal SpO2: 100 O2 Delivery: Room Air - Course EKG Interpreted by Me: RATE (88), Sinus Rhythm, NORMAL AXIS, NORMAL INTERVALS, Other (Nonspecific T wave changes) Ordered Tests: Active Orders 24 hr Category Date Time Status Bedrest ROUTINE Activity 07/04/24 16:52 Active Up With Assistance ROUTINE Activity 07/04/24 16:52 Active Call Admit Doctor for Orders ON ADMISSION Care 07/04/24 16:52 Active Curer Acid Drum ROUTINE Care 07/04/24 16:52 Active Code Status Order ROUTINE Care 07/04/24 16:52 Active EKG-ER Only STAT Care 07/04/24 14:52 Completed Fall Protocol Q1H Care 07/04/24 16:52 Active Neuro Checks Q4H Care 07/04/24 16:52 Active Orthostatic Vital Signs STAT Care 07/04/24 13:[address] in Observation ROUTINE Care 07/04/24 16:52 Active Telemetry q6h Care 07/04/24 16:52 Active HEAD WITHOUT CONTRAST [CT] Stat Exams 07/04/24 13:22 Completed Alcohol [ETHYL ALCOHOL] Stat Lab 07/04/24 13:56 Completed CBC W DIFF Stat Lab 07/04/24 13:56 Completed CMP Stat Lab 07/04/24 13:56 Completed MAG [MAGNESIUM] Stat Lab 07/04/24 13:56 Completed MAGNESIUM Stat Lab 07/04/24 13:56 Completed TROPONIN Q4H Lab 07/04/24 13:56 Completed TROPONIN Q4H Lab 07/04/24 17:30 Ordered TROPONIN Q4H Lab 07/04/24 21:30 Ordered UA W/RFX UR CULTURE Stat Lab 07/04/24 13:57 Completed Pulse Oximetry CONTINUOUS RT 07/04/24 16:52 Completed Transfer Order Routine Transfer 07/04/24 Completed Medication Summary Discontinued Medications Generic Name Dose Route Start Last Admin Trade Name Freq PRN Reason Stop Dose Admin Sodium Chloride 1,000 mls @ 999 mls/hr 07/04/24 13:21 07/04/24 14:26 Sodium Chloride 0.9% 1000 Ml IV 07/04/24 14:21 Infused .Q1H1M STA Infusion Sodium Chloride Confirm 07/04/24 13:51 Sodium Chloride 0.9% 1000 Ml Administered 07/04/24 13:52 Dose 1,000 mls @ ud .ROUTE .STK-MED ONE Meclizine HCl 25 mg 07/04/24 13:21 07/04/24 14:02 Meclizine Hcl 25 Mg Tablet PO 07/04/24 13:22 25 mg STAT ONE Administration Meclizine HCl Confirm 07/04/24 13:51 Meclizine Hcl 25 Mg Tablet Administered 07/04/24 13:52 Dose 25 mg .ROUTE .STK-MED ONE Ondansetron HCl 4 mg 07/04/24 13:21 07/04/24 14:04 Ondansetron Hcl 4 Mg/2 Ml Vial IV 07/04/24 13:22 4 mg STAT ONE Administration Ondansetron HCl Confirm 07/04/24 13:51 Ondansetron Hcl 4 Mg/2 Ml Vial Administered 07/04/24 13:52 Dose 4 mg .ROUTE .STK-MED ONE Lab/Rad Data: Laboratory Result Diagrams 07/04/24 13:56 07/04/24 13:56 Laboratory Results 07/04/24 07/04/24 07/04/24 Range/Units 13:57 13:56 13:56 WBC (3.98-10.04) x10^3/uL RBC (3.93-5.22) x10^6/uL Hgb (11.2-15.7) g/dL Hct (34.1-44.9) % MCV (79.4-94.8) fL MCH (25.6-32.2) pg MCHC (32.2-35.5) g/dL RDW (11.7-14.4) % Plt Count (182-369) x10^3/uL MPV (9.4-12.3) fL Gran % (34.0-71.1) % Immature Gran % (Auto) (0.001-0.429) % Nucleat RBC Rel Count (0.00-0.2) % Eos # (Auto) (0.04-0.36) x10^3/uL Immature Gran # (Auto) (0.001-0.031) x10^3u/L Absolute Lymphs (auto) (1.18-3.74) x10^3/uL Absolute Monos (auto) (0.24-0.86) x10^3/uL Absolute Nucleated RBC (0.00-0.012) x10^3u/L Lymphocytes % (19.3-51.7) % Monocytes % (4.7-12.5) % Eosinophils % (0.7-5.8) % Basophils % (0.1-1.2) % Absolute Granulocytes (1.56-6.13) x10^3/uL Basophils # (0.01-0.08) x10^3/uL Sodium (135-145) mmol/L Potassium (3.5-5.1) mmol/L Chloride (98-107) mmol/L Carbon Dioxide (22-30) mmol/L Anion Gap (5-15) MEQ/L BUN (7-17) mg/dL Creatinine (0.52-1.04) mg/dL Estimated GFR ML/MIN Glucose (74-106) mg/dL Calcium (8.4-10.2) mg/dL Magnesium 1.8 (1.6-2.3) mg/dL Total Bilirubin (0.2-1.3) mg/dL AST (14-36) U/L ALT (0-35) U/L Alkaline Phosphatase (38-126) U/L Troponin I (0.000-0.033) ng/mL Serum Total Protein (6.3-8.2) g/dL Albumin (3.5-5.0) g/dL Urine Color Yellow (Yellow) Urine Appearance Cloudy A (Clear) Urine pH 6.0 (4.6-8.0) Ur Specific [place] 1.020 (1.005-1.030) Urine Protein 30 (Negative) Urine Glucose (UA) Negative (Negative) mg/dL Urine Ketones 40 A (Negative) Urine Blood Negative (Negative) Urine Nitrite Negative (Negative) Urine Bilirubin Negative (Negative) Urine Urobilinogen 1.0 A (0.2) mg/dL Ur Leukocyte Esterase Negative (Negative) U Hyaline Cast (Auto) 20-50 (0-2) /LPF Urine Microscopic RBC 3-5 (0-5) /HPF Urine Microscopic WBC 0-2 (0-5) /HPF Ur Epithelial Cells Few (None Seen) /HPF Urine Bacteria None Seen (None Seen) /HPF Urine Culture Reflexed NO (NO) Ethyl Alcohol < 10 (0-10) mg/dL 07/04/24 07/04/24 07/04/24 Range/Units 13:56 13:56 13:56 WBC 10.1 H (3.98-10.04) x10^3/uL RBC 4.95 (3.93-5.22) x10^6/uL Hgb 15.9 H (11.2-15.7) g/dL Hct 44.7 (34.1-44.9) % MCV 90.3 (79.4-94.8) fL MCH 32.1 (25.6-32.2) pg MCHC 35.6 H (32.2-35.5) g/dL RDW 13.2 (11.7-14.4) % Plt Count 328 (182-369) x10^3/uL MPV 10.9 (9.4-12.3) fL Gran % 79.4 H (34.0-71.1) % Immature Gran % (Auto) 0.4 (0.001-0.429) % Nucleat RBC Rel Count 0.0 (0.00-0.2) % Eos # (Auto) 0.01 L (0.04-0.36) x10^3/uL Immature Gran # (Auto) 0.04 H (0.001-0.031) x10^3u/L Absolute Lymphs (auto) 1.29 (1.18-3.74) x10^3/uL Absolute Monos (auto) 0.70 (0.24-0.86) x10^3/uL Absolute Nucleated RBC 0.00 (0.00-0.012) x10^3u/L Lymphocytes % 12.8 L (19.3-51.7) % Monocytes % 6.9 (4.7-12.5) % Eosinophils % 0.1 L (0.7-5.8) % Basophils % 0.4 (0.1-1.2) % Absolute Granulocytes 8.01 H (1.56-6.13) x10^3/uL Basophils # 0.04 (0.01-0.08) x10^3/uL Sodium 135 (135-145) mmol/L Potassium 3.9 (3.5-5.1) mmol/L Chloride 89 L (98-107) mmol/L Carbon Dioxide 21 L (22-30) mmol/L Anion Gap 29.5 H (5-15) MEQ/L BUN 29 H (7-17) mg/dL Creatinine 1.53 H (0.52-1.04) mg/dL Estimated GFR 45.0 ML/MIN Glucose 98 (74-106) mg/dL Calcium 11.8 H (8.4-10.2) mg/dL Magnesium 1.8 (1.6-2.3) mg/dL Total Bilirubin 1.70 H (0.2-1.3) mg/dL AST 63 H (14-36) U/L ALT 230 H (0-35) U/L Alkaline Phosphatase 63 (38-126) U/L Troponin I < 0.012 (0.000-0.033) ng/mL Serum Total Protein 9.4 H (6.3-8.2) g/dL Albumin 5.6 H (3.5-5.0) g/dL Urine Color (Yellow) Urine Appearance (Clear) Urine pH (4.6-8.0) Ur Specific Center Line (1.005-1.030) Urine Protein (Negative) Urine Glucose (UA) (Negative) mg/dL Urine Ketones (Negative) Urine Blood (Negative) Urine Nitrite (Negative) Urine Bilirubin (Negative) Urine Urobilinogen (0.2) mg/dL Ur Leukocyte Esterase (Negative) U Hyaline Cast (Auto) (0-2) /LPF Urine Microscopic RBC (0-5) /HPF Urine Microscopic WBC (0-5) /HPF Ur Epithelial Cells (None Seen) /HPF Urine Bacteria (None Seen) /HPF Urine Culture Reflexed (NO) Ethyl Alcohol (0-10) mg/dL - Progress Progress: improved, re-examined Progress Note: 07/04/24 15:59 38 years old is evaluated in the ER for dizziness with nausea vomiting after she fell 3 days ago and busted her nose. She has nonfocal neuroexam throughout her stay in the ER, do not difficulty ambulation while in the ER. EKG is sinus rhythm with no ST elevation and negative initial troponins. Has positive orthostatics. Given fluid bolus along with Zofran and meclizine, on reevaluation she is feeling much better. Workup showed white count of 10, chemistries with creatinine of 1.5 with a baseline of 0.6 and BUN of 29 and gap of 29.5 with glucose of 98. Patient does have some ketones in her urine. Has elevated transaminases with a total bili of 1.7. Patient does not have any abdominal tenderness. Lungs clear to auscultation. I have obtained CT head which is negative for any acute trauma findings. Patient possibly has some element of concussion but she is already 3 days from her initial injury. Do not think she needs to be transferred for neurology/neurosurgery evaluation now. I believe patient has acute renal failure with dehydration causing her dizziness and lightheadedness and would benefit with IV hydration and recheck of her chemistries. I have shared the results of workup with patient and recommended admission which she understands and agree. Discussed with Dr. Aguilar, reviewed history, workup and patient is being admitted to hospitalist service. Discussed with Dr.: Other (Dr. Aguilar) Will see patient in: hospital (observation) Counseled pt/family regarding: lab results, diagnosis, need for follow-up, rad results Medical Desision Making - Discussion of managment Care discussed with:: hospitalist (Dr. Berumen) Reviewed:: Test results Agreed on:: Treatment plan Will see patient: in hospital - Diagnostic Testing Diagnostic test were ordered, analyzed, and reviewed by me: Yes Radiological Interpretation: Reviewed by me - Risk of complications The pt has a mod risk of morbidity or mortality based on: Need for prescription drug management The pt has a high risk of morbidity or mortality based on: Decision regarding hospitilization or escalation of hosp level of care - Departure Departure Disposition: Observation Clinical Impression: Acute renal failure (ARF), Elevated liver enzymes, Dehydration, Orthostatic lightheadedness Condition: Stable Critical Care Time: No
--- NOTE | 2024-07-04 17:25 | PCM.HP ---
<STEPHANIE MEJÍA - Last Filed: 07/04/24 17:18> History of Present Illness - Chief Complaint Chief Complaint: Acute renal failure, dehydration, fall, dizziness Date: 07/04/24 History of Present Illness: is a 38 year old female with a pmhx of arrythmia (some type of tachycardia), fatty liver disease, and anxiety/depression who presented to ED 07/04/24 with complaints of nausea, lightheadedness, and vomiting since a fall going up the stairs four days ago. Patient reports she tripped on the first step going into her house carry groceries and fell hitting her face. She reports loss of consciousness and a laceration on the bridge of her nose. She states she noticed dizziness and a headache initially but starting Tuesday she has not been able to keep food down due to nausea/vomiting. She has been able to drink water and keep it down. Denies fever,cough, sob, cp, abdominal pain, or diarrhea. Upon arrival patient was hypertensive and tachycardic. EKG is sinus rhythm with no ST elevation and negative initial troponins. Has positive orthostatics. CT head with no acute findings. Lab findings remarkable for mild leukocytosis with wbc at 10.1, hgb 15.9,High anion GAP acidosis with co2 at 21 and GAP at 29.5, BUN at 29, and creat at 1.53 (baseline 0.6), elevated protein 9.4 and albumin 5.6. Patient received zofran, 1L fluid bolus, and antivert in ED. She reports symptoms have improved but not at baseline. Admit for BING, Fall, orthostatic hypotension/dizziness. - Review of Systems Constitutional: No Symptoms Eyes: No Symptoms Ears, Nose, & Throat: No Symptoms Respiratory: No Symptoms Cardiac: No Symptoms Abdominal/Gastrointestinal: Nausea, Vomiting Genitourinary Symptoms: No Symptoms Musculoskeletal: No Symptoms Skin: No Symptoms Neurological: Dizziness, Headache Psychological: No Symptoms Endocrine: No Symptoms Hematologic/Lymphatic: No Symptoms Immunological/Allergic: No Symptoms Medications & Allergies Home Medications: Home Medication List Metoprolol Tartrate [Lopressor] 50 mg PO DAILY 11/23/21 [History Confirmed 07/04/24] Venlafaxine HCl [Effexor Xr] 150 mg PO DAILY 11/23/21 [History Confirmed 07/04/24] Estradiol [Vivelle-Dot] 1 patch TOP 2XW 05/10/24 [History Confirmed 07/04/24] Oxybutynin Chloride Xl 5 mg [Ditropan XL 5 MG] 5 mg PO DAILY 05/10/24 [History Confirmed 07/04/24] Allergies/Adverse Reactions: Allergies Allergy/AdvReac Type Severity Reaction Status Date / Time prednisone AdvReac Verified 07/04/24 13:07 - Past Medical History Past Medical History: Yes Neurological History: Migraines ENT History: No Pertinent History Cardiac History: Arrhythmia Respiratory History: No Pertinent History Endocrine Medical History: No Pertinent History Musculoskelatal History: No Pertinent History GI Medical History: No Pertinent History History: No Pertinent History Pyscho-Social History: Anxiety, Depression Reproductive Disorders: No Pertinent History Comment: tension migraines - Female History Hx Last Menstrual Period: hyster Are you now?: No - Past Surgical History Past Surgical History: Yes Neuro Surgical History: No Pertinent History Cardiac History: No Pertinent History Respiratory Surgery: No Pertinent History GI Surgical History: No Pertinent History Genitourinary Surgical Hx: No Pertinent History Musculskeletal Surgical Hx: Orthopedic Surgery Female Surgical History: Hysterectomy, Dilation & Curettage, Tubal Ligation Other Surgical History: L wrist, L ankle, IUD placed and removed. failed ablation. Significant Family History: no pertinent family hx - Social History Smoking Status: Current every day smoker How long have you smoked: 15 Exposure to second hand smoke: Yes Alcohol: Occasionally Drug Use: marijuana - Social Determinants of Health Will the patient participate in the screening: Yes Do you worry about a steady place to live?: No Do you have any problems with any of the following?: No known problems In the past 12 months,have you had to go without utilities?: No Have you or anyone in your house had to go without enough: No Transportation Issues: No Has anyone in your support network made you feel unsafe?: No - Physical Exam Vital Signs: Vital Signs - 24 hr Temp Pulse Resp BP BP Pulse Ox 07/04/24 17:09 100 07/04/24 15:40 100 H 18 100 07/04/24 15:33 94 L 07/04/24 15:00 85 16 127/88 98 07/04/24 14:32 98 H 18 137/89 96 07/04/24 14:30 98 H 16 137/89 99 07/04/24 13:18 97.8 F 113 H 18 165/100 98 General Appearance: no apparent distress Neurologic Exam: alert, oriented x 3, cooperative Eye Exam: PERRL/EOMI Ears, Nose, Throat Exam: normal ENT inspection Neck Exam: normal inspection Respiratory Exam: normal breath sounds, lungs clear Cardiovascular Exam: tachycardia Gastrointestinal/Abdomen Exam: soft, normal bowel sounds Pelvic Exam: not done Rectal Exam: deferred Back Exam: normal inspection Extremity Exam: normal inspection Skin Exam: normal color, abrasion (bridge of nose -covered with steri strip) Results - Labs Lab/Micro Results: Lab Results-Last 24 Hours 07/04/24 07/04/24 07/04/24 Range/Units 13:56 13:56 13:56 WBC 10.1 H (3.98-10.04) x10^3/uL RBC 4.95 (3.93-5.22) x10^6/uL Hgb 15.9 H (11.2-15.7) g/dL Hct 44.7 (34.1-44.9) % MCV 90.3 (79.4-94.8) fL MCH 32.1 (25.6-32.2) pg MCHC 35.6 H (32.2-35.5) g/dL RDW 13.2 (11.7-14.4) % Plt Count 328 (182-369) x10^3/uL MPV 10.9 (9.4-12.3) fL Gran % 79.4 H (34.0-71.1) % Immature Gran % (Auto) 0.4 (0.001-0.429) % Nucleat RBC Rel Count 0.0 (0.00-0.2) % Eos # (Auto) 0.01 L (0.04-0.36) x10^3/uL Immature Gran # (Auto) 0.04 H (0.001-0.031) x10^3u/L Absolute Lymphs (auto) 1.29 (1.18-3.74) x10^3/uL Absolute Monos (auto) 0.70 (0.24-0.86) x10^3/uL Absolute Nucleated RBC 0.00 (0.00-0.012) x10^3u/L Lymphocytes % 12.8 L (19.3-51.7) % Monocytes % 6.9 (4.7-12.5) % Eosinophils % 0.1 L (0.7-5.8) % Basophils % 0.4 (0.1-1.2) % Absolute Granulocytes 8.01 H (1.56-6.13) x10^3/uL Basophils # 0.04 (0.01-0.08) x10^3/uL Sodium 135 (135-145) mmol/L Potassium 3.9 (3.5-5.1) mmol/L Chloride 89 L (98-107) mmol/L Carbon Dioxide 21 L (22-30) mmol/L Anion Gap 29.5 H (5-15) MEQ/L BUN 29 H (7-17) mg/dL Creatinine 1.53 H (0.52-1.04) mg/dL Estimated GFR 45.0 ML/MIN Glucose 98 (74-106) mg/dL Calcium 11.8 H (8.4-10.2) mg/dL Magnesium 1.8 (1.6-2.3) mg/dL Total Bilirubin 1.70 H (0.2-1.3) mg/dL AST 63 H (14-36) U/L ALT 230 H (0-35) U/L Alkaline Phosphatase 63 (38-126) U/L Troponin I < 0.012 (0.000-0.033) ng/mL Serum Total Protein 9.4 H (6.3-8.2) g/dL Albumin 5.6 H (3.5-5.0) g/dL Urine Color (Yellow) Urine Appearance (Clear) Urine pH (4.6-8.0) Ur Specific Dinosaur (1.005-1.030) Urine Protein (Negative) Urine Glucose (UA) (Negative) mg/dL Urine Ketones (Negative) Urine Blood (Negative) Urine Nitrite (Negative) Urine Bilirubin (Negative) Urine Urobilinogen (0.2) mg/dL Ur Leukocyte Esterase (Negative) U Hyaline Cast (Auto) (0-2) /LPF Urine Microscopic RBC (0-5) /HPF Urine Microscopic WBC (0-5) /HPF Ur Epithelial Cells (None Seen) /HPF Urine Bacteria (None Seen) /HPF Urine Culture Reflexed (NO) Ethyl Alcohol (0-10) mg/dL 10/16/24 10/16/24 10/16/24 Range/Units 13:56 13:56 13:57 WBC (3.98-10.04) x10^3/uL RBC (3.93-5.22) x10^6/uL Hgb (11.2-15.7) g/dL Hct (34.1-44.9) % MCV (79.4-94.8) fL MCH (25.6-32.2) pg MCHC (32.2-35.5) g/dL RDW (11.7-14.4) % Plt Count (182-369) x10^3/uL MPV (9.4-12.3) fL Gran % (34.0-71.1) % Immature Gran % (Auto) (0.001-0.429) % Nucleat RBC Rel Count (0.00-0.2) % Eos # (Auto) (0.04-0.36) x10^3/uL Immature Gran # (Auto) (0.001-0.031) x10^3u/L Absolute Lymphs (auto) (1.18-3.74) x10^3/uL Absolute Monos (auto) (0.24-0.86) x10^3/uL Absolute Nucleated RBC (0.00-0.012) x10^3u/L Lymphocytes % (19.3-51.7) % Monocytes % (4.7-12.5) % Eosinophils % (0.7-5.8) % Basophils % (0.1-1.2) % Absolute Granulocytes (1.56-6.13) x10^3/uL Basophils # (0.01-0.08) x10^3/uL Sodium (135-145) mmol/L Potassium (3.5-5.1) mmol/L Chloride (98-107) mmol/L Carbon Dioxide (22-30) mmol/L Anion Gap (5-15) MEQ/L BUN (7-17) mg/dL Creatinine (0.52-1.04) mg/dL Estimated GFR ML/MIN Glucose (74-106) mg/dL Calcium (8.4-10.2) mg/dL Magnesium 1.8 (1.6-2.3) mg/dL Total Bilirubin (0.2-1.3) mg/dL AST (14-36) U/L ALT (0-35) U/L Alkaline Phosphatase (38-126) U/L Troponin I (0.000-0.033) ng/mL Serum Total Protein (6.3-8.2) g/dL Albumin (3.5-5.0) g/dL Urine Color Yellow (Yellow) Urine Appearance Cloudy A (Clear) Urine pH 6.0 (4.6-8.0) Ur Specific Dinosaur 1.020 (1.005-1.030) Urine Protein 30 (Negative) Urine Glucose (UA) Negative (Negative) mg/dL Urine Ketones 40 A (Negative) Urine Blood Negative (Negative) Urine Nitrite Negative (Negative) Urine Bilirubin Negative (Negative) Urine Urobilinogen 1.0 A (0.2) mg/dL Ur Leukocyte Esterase Negative (Negative) U Hyaline Cast (Auto) 20-50 (0-2) /LPF Urine Microscopic RBC 3-5 (0-5) /HPF Urine Microscopic WBC 0-2 (0-5) /HPF Ur Epithelial Cells Few (None Seen) /HPF Urine Bacteria None Seen (None Seen) /HPF Urine Culture Reflexed NO (NO) Ethyl Alcohol < 10 (0-10) mg/dL - Radiology Impressions Radiology Exams & Impressions: Radiology Procedures Category Date Time Status HEAD WITHOUT CONTRAST [CT] Stat Exams 07/04/24 13:22 Completed Assessment/Plan (1) Acute renal failure (ARF) Current Visit: Yes Status: Acute Assessment & Plan: -Secondary to hypovolemia from N/V --baseline creat around 0.6-0.7 - today at 1.53 -IL fluid bolus given in ED - patient would like to try CLD - if unable to t olerate continue IVF -Avoid nephrotoxic medications -Monitor renal/lytes (2) Dehydration Current Visit: Yes Status: Acute Assessment & Plan: -see bing Code(s): E86.0 - DEHYDRATION (3) Elevated liver enzymes Current Visit: Yes Status: Acute Assessment & Plan: -Appears chronic -Patient reports h/o fatty liver disease -social drinker -trend Code(s): R74.8 - ABNORMAL LEVELS OF OTHER SERUM ENZYMES (4) Orthostatic lightheadedness Current Visit: Yes Status: Acute Assessment & Plan: -CT head with no acute findings -recheck orthostatic vitals after fluid bolus -meclizine -med review -tele Code(s): R42 - DIZZINESS AND GIDDINESS (5) Anxiety Current Visit: No Status: Acute Assessment & Plan: -continue home meds Code(s): F41.9 - ANXIETY DISORDER, UNSPECIFIED (6) Tachycardia Current Visit: No Status: Acute Assessment & Plan: -on metoprolol for unspecified arrythmia- continue -stable Code(s): R00.0 - TACHYCARDIA, UNSPECIFIED (7) Nausea & vomiting Current Visit: Yes Status: Acute Assessment & Plan: -anti-emetics -received 1L fluid with much improvement - CLD for now- continue IVF if not able to tolerate Code(s): R11.2 - NAUSEA WITH VOMITING, UNSPECIFIED (8) Fall (on) (from) other stairs and steps, initial encounter Current Visit: Yes Status: Acute Assessment & Plan: -with loc -CT head negative -likely has some concussion -nonfocal neuroexam -neuro checks VTE: bilateral SCD Dispo: 1-2 days Code status: Full Code Code(s): W10.9XXA - FALL (ON) (FROM) UNSPECIFIED STAIRS AND STEPS, INIT ENCNTR Telemedicine Encounter - Telemedicine Encounter Telemedicine Encounter: "The entirety of this encounter was performed via Telemedicine" This visit was performed using real-time audio and video connection between my location and thepatients locationwith the assistance of a surrogateat the patients location. Written or verbal consent was obtained from the patient/guardian to perform this visit [facility] technology. Any patient questions regarding the telemedicine interaction were answered. <KIRIT BLAIR - Last Filed: 07/04/24 21:32> History of Present Illness - Chief Complaint History of Present Illness: is a 38 year old female. - Physical Exam Vital Signs: Vital Signs - 24 hr Temp Pulse Resp BP BP Pulse Ox 07/04/24 20:00 98.4 F 86 15 117/77 100 07/04/24 17:09 100 07/04/24 16:58 97.5 F 97 H 16 135/80 98 07/04/24 15:40 100 H 18 100 07/04/24 15:33 94 L 07/04/24 15:00 85 16 127/88 98 07/04/24 14:32 98 H 18 137/89 96 07/04/24 14:30 98 H 16 137/89 99 07/04/24 13:18 97.8 F 113 H 18 165/100 98 Results - Labs Lab/Micro Results: Lab Results-Last 24 Hours 07/04/24 07/04/24 07/04/24 Range/Units 13:56 13:56 13:56 WBC 10.1 H (3.98-10.04) x10^3/uL RBC 4.95 (3.93-5.22) x10^6/uL Hgb 15.9 H (11.2-15.7) g/dL Hct 44.7 (34.1-44.9) % MCV 90.3 (79.4-94.8) fL MCH 32.1 (25.6-32.2) pg MCHC 35.6 H (32.2-35.5) g/dL RDW 13.2 (11.7-14.4) % Plt Count 328 (182-369) x10^3/uL MPV 10.9 (9.4-12.3) fL Gran % 79.4 H (34.0-71.1) % Immature Gran % (Auto) 0.4 (0.001-0.429) % Nucleat RBC Rel Count 0.0 (0.00-0.2) % Eos # (Auto) 0.01 L (0.04-0.36) x10^3/uL Immature Gran # (Auto) 0.04 H (0.001-0.031) x10^3u/L Absolute Lymphs (auto) 1.29 (1.18-3.74) x10^3/uL Absolute Monos (auto) 0.70 (0.24-0.86) x10^3/uL Absolute Nucleated RBC 0.00 (0.00-0.012) x10^3u/L Lymphocytes % 12.8 L (19.3-51.7) % Monocytes % 6.9 (4.7-12.5) % Eosinophils % 0.1 L (0.7-5.8) % Basophils % 0.4 (0.1-1.2) % Absolute Granulocytes 8.01 H (1.56-6.13) x10^3/uL Basophils # 0.04 (0.01-0.08) x10^3/uL Sodium 135 (135-145) mmol/L Potassium 3.9 (3.5-5.1) mmol/L Chloride 89 L (98-107) mmol/L Carbon Dioxide 21 L (22-30) mmol/L Anion Gap 29.5 H (5-15) MEQ/L BUN 29 H (7-17) mg/dL Creatinine 1.53 H (0.52-1.04) mg/dL Estimated GFR 45.0 ML/MIN Glucose 98 (74-106) mg/dL Calcium 11.8 H (8.4-10.2) mg/dL Magnesium 1.8 (1.6-2.3) mg/dL Total Bilirubin 1.70 H (0.2-1.3) mg/dL AST 63 H (14-36) U/L ALT 230 H (0-35) U/L Alkaline Phosphatase 63 (38-126) U/L Troponin I < 0.012 (0.000-0.033) ng/mL Serum Total Protein 9.4 H (6.3-8.2) g/dL Albumin 5.6 H (3.5-5.0) g/dL Urine Color (Yellow) Urine Appearance (Clear) Urine pH (4.6-8.0) Ur Specific Dinosaur (1.005-1.030) Urine Protein (Negative) Urine Glucose (UA) (Negative) mg/dL Urine Ketones (Negative) Urine Blood (Negative) Urine Nitrite (Negative) Urine Bilirubin (Negative) Urine Urobilinogen (0.2) mg/dL Ur Leukocyte Esterase (Negative) U Hyaline Cast (Auto) (0-2) /LPF Urine Microscopic RBC (0-5) /HPF Urine Microscopic WBC (0-5) /HPF Ur Epithelial Cells (None Seen) /HPF Urine Bacteria (None Seen) /HPF Urine Culture Reflexed (NO) Ethyl Alcohol (0-10) mg/dL 07/04/24 07/04/24 07/04/24 Range/Units 13:56 13:56 13:57 WBC (3.98-10.04) x10^3/uL RBC (3.93-5.22) x10^6/uL Hgb (11.2-15.7) g/dL Hct (34.1-44.9) % MCV (79.4-94.8) fL MCH (25.6-32.2) pg MCHC (32.2-35.5) g/dL RDW (11.7-14.4) % Plt Count (182-369) x10^3/uL MPV (9.4-12.3) fL Gran % (34.0-71.1) % Immature Gran % (Auto) (0.001-0.429) % Nucleat RBC Rel Count (0.00-0.2) % Eos # (Auto) (0.04-0.36) x10^3/uL Immature Gran # (Auto) (0.001-0.031) x10^3u/L Absolute Lymphs (auto) (1.18-3.74) x10^3/uL Absolute Monos (auto) (0.24-0.86) x10^3/uL Absolute Nucleated RBC (0.00-0.012) x10^3u/L Lymphocytes % (19.3-51.7) % Monocytes % (4.7-12.5) % Eosinophils % (0.7-5.8) % Basophils % (0.1-1.2) % Absolute Granulocytes (1.56-6.13) x10^3/uL Basophils # (0.01-0.08) x10^3/uL Sodium (135-145) mmol/L Potassium (3.5-5.1) mmol/L Chloride (98-107) mmol/L Carbon Dioxide (22-30) mmol/L Anion Gap (5-15) MEQ/L BUN (7-17) mg/dL Creatinine (0.52-1.04) mg/dL Estimated GFR ML/MIN Glucose (74-106) mg/dL Calcium (8.4-10.2) mg/dL Magnesium 1.8 (1.6-2.3) mg/dL Total Bilirubin (0.2-1.3) mg/dL AST (14-36) U/L ALT (0-35) U/L Alkaline Phosphatase (38-126) U/L Troponin I (0.000-0.033) ng/mL Serum Total Protein (6.3-8.2) g/dL Albumin (3.5-5.0) g/dL Urine Color Yellow (Yellow) Urine Appearance Cloudy A (Clear) Urine pH 6.0 (4.6-8.0) Ur Specific Dinosaur 1.020 (1.005-1.030) Urine Protein 30 (Negative) Urine Glucose (UA) Negative (Negative) mg/dL Urine Ketones 40 A (Negative) Urine Blood Negative (Negative) Urine Nitrite Negative (Negative) Urine Bilirubin Negative (Negative) Urine Urobilinogen 1.0 A (0.2) mg/dL Ur Leukocyte Esterase Negative (Negative) U Hyaline Cast (Auto) 20-50 (0-2) /LPF Urine Microscopic RBC 3-5 (0-5) /HPF Urine Microscopic WBC 0-2 (0-5) /HPF Ur Epithelial Cells Few (None Seen) /HPF Urine Bacteria None Seen (None Seen) /HPF Urine Culture Reflexed NO (NO) Ethyl Alcohol < 10 (0-10) mg/dL 07/04/24 Range/Units 17:32 WBC (3.98-10.04) x10^3/uL RBC (3.93-5.22) x10^6/uL Hgb (11.2-15.7) g/dL Hct (34.1-44.9) % MCV (79.4-94.8) fL MCH (25.6-32.2) pg MCHC (32.2-35.5) g/dL RDW (11.7-14.4) % Plt Count (182-369) x10^3/uL MPV (9.4-12.3) fL Gran % (34.0-71.1) % Immature Gran % (Auto) (0.001-0.429) % Nucleat RBC Rel Count (0.00-0.2) % Eos # (Auto) (0.04-0.36) x10^3/uL Immature Gran # (Auto) (0.001-0.031) x10^3u/L Absolute Lymphs (auto) (1.18-3.74) x10^3/uL Absolute Monos (auto) (0.24-0.86) x10^3/uL Absolute Nucleated RBC (0.00-0.012) x10^3u/L Lymphocytes % (19.3-51.7) % Monocytes % (4.7-12.5) % Eosinophils % (0.7-5.8) % Basophils % (0.1-1.2) % Absolute Granulocytes (1.56-6.13) x10^3/uL Basophils # (0.01-0.08) x10^3/uL Sodium (135-145) mmol/L Potassium (3.5-5.1) mmol/L Chloride (98-107) mmol/L Carbon Dioxide (22-30) mmol/L Anion Gap (5-15) MEQ/L BUN (7-17) mg/dL Creatinine (0.52-1.04) mg/dL Estimated GFR ML/MIN Glucose (74-106) mg/dL Calcium (8.4-10.2) mg/dL Magnesium (1.6-2.3) mg/dL Total Bilirubin (0.2-1.3) mg/dL AST (14-36) U/L ALT (0-35) U/L Alkaline Phosphatase (38-126) U/L Troponin I < 0.012 (0.000-0.033) ng/mL Serum Total Protein (6.3-8.2) g/dL Albumin (3.5-5.0) g/dL Urine Color (Yellow) Urine Appearance (Clear) Urine pH (4.6-8.0) Ur Specific Dinosaur (1.005-1.030) Urine Protein (Negative) Urine Glucose (UA) (Negative) mg/dL Urine Ketones (Negative) Urine Blood (Negative) Urine Nitrite (Negative) Urine Bilirubin (Negative) Urine Urobilinogen (0.2) mg/dL Ur Leukocyte Esterase (Negative) U Hyaline Cast (Auto) (0-2) /LPF Urine Microscopic RBC (0-5) /HPF Urine Microscopic WBC (0-5) /HPF Ur Epithelial Cells (None Seen) /HPF Urine Bacteria (None Seen) /HPF Urine Culture Reflexed (NO) Ethyl Alcohol (0-10) mg/dL - Radiology Impressions Radiology Exams & Impressions: Radiology Procedures Category Date Time Status HEAD WITHOUT CONTRAST [CT] Stat Exams 07/04/24 13:22 Completed Telemedicine Encounter - Telemedicine Encounter Telemedicine Encounter: "The entirety of this encounter was performed via Telemedicine" This visit was performed using real-time audio and video connection between my location and thepatients locationwith the assistance of a surrogateat the patients location. Written or verbal consent was obtained from the patient/guardian to perform this visit using[employer] technology. Any patient questions regarding the telemedicine interaction were answered. RIVERA Encounter - RIVERA Encounter Attestation RIVERA Encounter Attestation: "LUCINA Morris andjamesiscussed pertinent aspects of their care with Stephanie Bell agree with the history, physical exam (any modifications based on my personal exam will be noted below), assessment, and plan as outlined in original note. Please see immediately below for my summary of findings and additional assessment and plan along with any meaningful corrections/explanations to the Subjective/Objective portions of the RIVERA note will be noted." My portion of the encounter took place via telemedicine. -N/V, dizziness, headache after a fall likely due to concussion. S/p IVF, continue supportive care. Repeat BMP tomorrow, likely discharge home if crea tinine improves.
[2024-07-04] MEDS ORDERED: TYLENOL 325 MG PO PRN (17:38)
[2024-07-04] MEDS ORDERED: ANTIVERT 25 MG PO PRN (17:38)
[2024-07-04] MEDS: Zofran 4 MG/2 ML VIAL IV PRN (18:52)
[2024-07-04] MEDS: NICODERM CQ 14 MG TOP SCH (18:52)
--- NOTE | 2024-07-05 05:26 | PCM.DS ---
Discharge Summary Date of Admission: 07/04/24 16:52 Date of Discharge: 07/05/24 Admitting Physician: KIRIT BLAIR MD Primary Care Provider: RAYMOND NELSON Allergies Allergies prednisone Adverse Reaction (Verified 07/04/24 13:07) excessive weight gain Hospital Summary - Hospital Course Hospital Course: is a 38 year old female with a pmhx of arrythmia (some type of tachycardia), fatty liver disease, and anxiety/depression who presented to ED 07/04/24 with complaints of nausea, lightheadedness, and vomiting since a fall going up the stairs four days ago. Patient reports she tripped on the first step going into her house carry groceries and fell hitting her face. She reports loss of consciousness and a laceration on the bridge of her nose. She states she noticed dizziness and a headache initially but starting Tuesday she has not been able to keep food down due to nausea/vomiting. She has been able to drink water and keep it down. Denies fever,cough, sob, cp, abdominal pain, or diarrhea. Upon arrival patient was hypertensive and tachycardic. EKG is sinus rhythm with no ST elevation and negative initial troponins. Has positive orthostatics. CT head with no acute findings. Lab findings remarkable for mild leukocytosis with wbc at 10.1, hgb 15.9,High anion GAP acidosis with co2 at 21 and GAP at 29.5, BUN at 29, and creat at 1.53 (baseline 0.6), elevated protein 9.4 and albumin 5.6. Patient received zofran, 1L fluid bolus, and antivert in ED. She reports symptoms have improved but not at baseline. Admit for BING, Fall, orthostatic hypotension/dizziness. No overnight events noted. BING has resolved. Dizziness/nausea resolved. Patient tolerating bland diet. Requesting discharge home. Will send on meclizine/zofran. Patient agreeable to plan and stable for discharge. Discharge Note New Diagnosis: BING/ dizziness New Medications: meclizine/zofran Follow Up: PCP Latest Assessment & Plan (1) Acute renal failure (ARF) Current Visit: Yes Status: Acute Assessment & Plan: -Secondary to hypovolemia from N/V --baseline creat around 0.6-0.7 - today at 1.53 -IL fluid bolus given in ED - patient would like to try CLD - if unable to tolerate continue IVF -Avoid nephrotoxic medications -Monitor renal/lytes (2) Dehydration Current Visit: Yes Status: Acute Assessment & Plan: -see bing Code(s): E86.0 - DEHYDRATION (3) Elevated liver enzymes Current Visit: Yes Status: Acute Assessment & Plan: -Appears chronic -Patient reports h/o fatty liver disease -social drinker -trend Code(s): R74.8 - ABNORMAL LEVELS OF OTHER SERUM ENZYMES (4) Orthostatic lightheadedness Current Visit: Yes Status: Acute Assessment & Plan: -CT head with no acute findings -recheck orthostatic vitals after fluid bolus -meclizine -med review -tele Code(s): R42 - DIZZINESS AND GIDDINESS (5) Anxiety Current Visit: No Status: Acute Assessment & Plan: -continue home meds Code(s): F41.9 - ANXIETY DISORDER, UNSPECIFIED (6) Tachycardia Current Visit: No Status: Acute Assessment & Plan: -on metoprolol for unspecified arrythmia- continue -stable 07/05: -resolved Code(s): R00.0 - TACHYCARDIA, UNSPECIFIED (7) Nausea & vomiting Current Visit: Yes Status: Acute Assessment & Plan: -anti-emetics -received 1L fluid with much improvement - CLD for now- continue IVF if not able to tolerate Code(s): R11.2 - NAUSEA WITH VOMITING, UNSPECIFIED (8) Fall (on) (from) other stairs and steps, initial encounter Current Visit: Yes Status: Acute Assessment & Plan: -with loc -CT head negative -likely has some concussion -nonfocal neuroexam -neuro checks VTE: bilateral SCD Dispo: 1-2 days Code status: Full Code I spent 35 minutes [id number] with the patient on the day of discharge performing discharge exam, discussing hospital stay and discharge instructions with patient and caregivers, preparation of discharge records, prescriptions & referral forms and addressing any questions/concerns the patient had as documented above. - Vitals & Intake/Output Vital Signs: Vital Signs Temperature 97.7 F 07/05/24 04:00 Pulse Rate 79 07/05/24 04:00 Respiratory Rate 16 07/05/24 04:00 Blood Pressure 106/62 07/05/24 04:00 O2 Sat by Pulse Oximetry 99 07/05/24 04:00 Intake & Output: Intake & Output 07/02/24 07/03/24 07/04/24 07/05/24 11:59 11:59 11:59 11:59 Intake Total 1690 Output Total 650 Balance 1040 Weight 78.3 kg - Lab Result Diagrams: 07/05/24 05:03 07/05/24 05:03 Lab Results-Last 24 Hrs: Lab Results-Last 24 Hours 07/04/24 07/04/24 07/04/24 Range/Units 13:56 13:56 13:56 WBC 10.1 H (3.98-10.04) x10^3/uL RBC 4.95 (3.93-5.22) x10^6/uL Hgb 15.9 H (11.2-15.7) g/dL Hct 44.7 (34.1-44.9) % MCV 90.3 (79.4-94.8) fL MCH 32.1 (25.6-32.2) pg MCHC 35.6 H (32.2-35.5) g/dL RDW 13.2 (11.7-14.4) % Plt Count 328 (182-369) x10^3/uL MPV 10.9 (9.4-12.3) fL Gran % 79.4 H (34.0-71.1) % Immature Gran % (Auto) 0.4 (0.001-0.429) % Nucleat RBC Rel Count 0.0 (0.00-0.2) % Eos # (Auto) 0.01 L (0.04-0.36) x10^3/uL Immature Gran # (Auto) 0.04 H (0.001-0.031) x10^3u/L Absolute Lymphs (auto) 1.29 (1.18-3.74) x10^3/uL Absolute Monos (auto) 0.70 (0.24-0.86) x10^3/uL Absolute Nucleated RBC 0.00 (0.00-0.012) x10^3u/L Lymphocytes % 12.8 L (19.3-51.7) % Monocytes % 6.9 (4.7-12.5) % Eosinophils % 0.1 L (0.7-5.8) % Basophils % 0.4 (0.1-1.2) % Absolute Granulocytes 8.01 H (1.56-6.13) x10^3/uL Basophils # 0.04 (0.01-0.08) x10^3/uL Sodium 135 (135-145) mmol/L Potassium 3.9 (3.5-5.1) mmol/L Chloride 89 L (98-107) mmol/L Carbon Dioxide 21 L (22-30) mmol/L Anion Gap 29.5 H (5-15) MEQ/L BUN 29 H (7-17) mg/dL Creatinine 1.53 H (0.52-1.04) mg/dL Estimated GFR 45.0 ML/MIN Glucose 98 (74-106) mg/dL Calcium 11.8 H (8.4-10.2) mg/dL Magnesium 1.8 (1.6-2.3) mg/dL Total Bilirubin 1.70 H (0.2-1.3) mg/dL AST 63 H (14-36) U/L ALT 230 H (0-35) U/L Alkaline Phosphatase 63 (38-126) U/L Troponin I < 0.012 (0.000-0.033) ng/mL Serum Total Protein 9.4 H (6.3-8.2) g/dL Albumin 5.6 H (3.5-5.0) g/dL Urine Color (Yellow) Urine Appearance (Clear) Urine pH (4.6-8.0) Ur Specific [place] (1.005-1.030) Urine Protein (Negative) Urine Glucose (UA) (Negative) mg/dL Urine Ketones (Negative) Urine Blood (Negative) Urine Nitrite (Negative) Urine Bilirubin (Negative) Urine Urobilinogen (0.2) mg/dL Ur Leukocyte Esterase (Negative) U Hyaline Cast (Auto) (0-2) /LPF Urine Microscopic RBC (0-5) /HPF Urine Microscopic WBC (0-5) /HPF Ur Epithelial Cells (None Seen) /HPF Urine Bacteria (None Seen) /HPF Urine Culture Reflexed (NO) Ethyl Alcohol (0-10) mg/dL 07/04/24 07/04/24 07/04/24 Range/Units 13:56 13:56 13:57 WBC (3.98-10.04) x10^3/uL RBC (3.93-5.22) x10^6/uL Hgb (11.2-15.7) g/dL Hct (34.1-44.9) % MCV (79.4-94.8) fL MCH (25.6-32.2) pg MCHC (32.2-35.5) g/dL RDW (11.7-14.4) % Plt Count (182-369) x10^3/uL MPV (9.4-12.3) fL Gran % (34.0-71.1) % Immature Gran % (Auto) (0.001-0.429) % Nucleat RBC Rel Count (0.00-0.2) % Eos # (Auto) (0.04-0.36) x10^3/uL Immature Gran # (Auto) (0.001-0.031) x10^3u/L Absolute Lymphs (auto) (1.18-3.74) x10^3/uL Absolute Monos (auto) (0.24-0.86) x10^3/uL Absolute Nucleated RBC (0.00-0.012) x10^3u/L Lymphocytes % (19.3-51.7) % Monocytes % (4.7-12.5) % Eosinophils % (0.7-5.8) % Basophils % (0.1-1.2) % Absolute Granulocytes (1.56-6.13) x10^3/uL Basophils # (0.01-0.08) x10^3/uL Sodium (135-145) mmol/L Potassium (3.5-5.1) mmol/L Chloride (98-107) mmol/L Carbon Dioxide (22-30) mmol/L Anion Gap (5-15) MEQ/L BUN (7-17) mg/dL Creatinine (0.52-1.04) mg/dL Estimated GFR ML/MIN Glucose (74-106) mg/dL Calcium (8.4-10.2) mg/dL Magnesium 1.8 (1.6-2.3) mg/dL Total Bilirubin (0.2-1.3) mg/dL AST (14-36) U/L ALT (0-35) U/L Alkaline Phosphatase (38-126) U/L Troponin I (0.000-0.033) ng/mL Serum Total Protein (6.3-8.2) g/dL Albumin (3.5-5.0) g/dL Urine Color Yellow (Yellow) Urine Appearance Cloudy A (Clear) Urine pH 6.0 (4.6-8.0) Ur Specific [place] 1.020 (1.005-1.030) Urine Protein 30 (Negative) Urine Glucose (UA) Negative (Negative) mg/dL Urine Ketones 40 A (Negative) Urine Blood Negative (Negative) Urine Nitrite Negative (Negative) Urine Bilirubin Negative (Negative) Urine Urobilinogen 1.0 A (0.2) mg/dL Ur Leukocyte Esterase Negative (Negative) U Hyaline Cast (Auto) 20-50 (0-2) /LPF Urine Microscopic RBC 3-5 (0-5) /HPF Urine Microscopic WBC 0-2 (0-5) /HPF Ur Epithelial Cells Few (None Seen) /HPF Urine Bacteria None Seen (None Seen) /HPF Urine Culture Reflexed NO (NO) Ethyl Alcohol < 10 (0-10) mg/dL 07/04/24 07/04/24 Range/Units 17:32 21:30 WBC (3.98-10.04) x10^3/uL RBC (3.93-5.22) x10^6/uL Hgb (11.2-15.7) g/dL Hct (34.1-44.9) % MCV (79.4-94.8) fL MCH (25.6-32.2) pg MCHC (32.2-35.5) g/dL RDW (11.7-14.4) % Plt Count (182-369) x10^3/uL MPV (9.4-12.3) fL Gran % (34.0-71.1) % Immature Gran % (Auto) (0.001-0.429) % Nucleat RBC Rel Count (0.00-0.2) % Eos # (Auto) (0.04-0.36) x10^3/uL Immature Gran # (Auto) (0.001-0.031) x10^3u/L Absolute Lymphs (auto) (1.18-3.74) x10^3/uL Absolute Monos (auto) (0.24-0.86) x10^3/uL Absolute Nucleated RBC (0.00-0.012) x10^3u/L Lymphocytes % (19.3-51.7) % Monocytes % (4.7-12.5) % Eosinophils % (0.7-5.8) % Basophils % (0.1-1.2) % Absolute Granulocytes (1.56-6.13) x10^3/uL Basophils # (0.01-0.08) x10^3/uL Sodium (135-145) mmol/L Potassium (3.5-5.1) mmol/L Chloride (98-107) mmol/L Carbon Dioxide (22-30) mmol/L Anion Gap (5-15) MEQ/L BUN (7-17) mg/dL Creatinine (0.52-1.04) mg/dL Estimated GFR ML/MIN Glucose (74-106) mg/dL Calcium (8.4-10.2) mg/dL Magnesium (1.6-2.3) mg/dL Total Bilirubin (0.2-1.3) mg/dL AST (14-36) U/L ALT (0-35) U/L Alkaline Phosphatase (38-126) U/L Troponin I < 0.012 0.017 (0.000-0.033) ng/mL Serum Total Protein (6.3-8.2) g/dL Albumin (3.5-5.0) g/dL Urine Color (Yellow) Urine Appearance (Clear) Urine pH (4.6-8.0) Ur Specific [place] (1.005-1.030) Urine Protein (Negative) Urine Glucose (UA) (Negative) mg/dL Urine Ketones (Negative) Urine Blood (Negative) Urine Nitrite (Negative) Urine Bilirubin (Negative) Urine Urobilinogen (0.2) mg/dL Ur Leukocyte Esterase (Negative) U Hyaline Cast (Auto) (0-2) /LPF Urine Microscopic RBC (0-5) /HPF Urine Microscopic WBC (0-5) /HPF Ur Epithelial Cells (None Seen) /HPF Urine Bacteria (None Seen) /HPF Urine Culture Reflexed (NO) Ethyl Alcohol (0-10) mg/dL - Radiology Exams Ordered Rad Exams-Entire Visit: Radiology Procedures Category Date Time Status HEAD WITHOUT CONTRAST [CT] Stat Exams 07/04/24 13:22 Completed Discharge Exam General Appearance: no apparent distress Neurologic Exam: alert, oriented x 3, cooperative Eye Exam: PERRL Ears, Nose, Throat Exam: normal ENT inspection Neck Exam: normal inspection Respiratory Exam: normal breath sounds, lungs clear Cardiovascular Exam: regular rate/rhythm, normal heart sounds Gastrointestinal/Abdomen Exam: soft, normal bowel sounds Pelvic Exam: deferred Rectal Exam: deferred Back Exam: normal inspection Extremity Exam: normal inspection Final Diagnosis/Problem List - Final Discharge Diagnosis/Problem (1) Acute renal failure (ARF) Current Visit: Yes Status: Resolved (2) Dehydration Current Visit: Yes Status: Resolved Code(s): E86.0 - DEHYDRATION (3) Elevated liver enzymes Current Visit: Yes Status: Chronic Code(s): R74.8 - ABNORMAL LEVELS OF OTHER SERUM ENZYMES (4) Orthostatic lightheadedness Current Visit: Yes Status: Resolved Code(s): R42 - DIZZINESS AND GIDDINESS (5) Anxiety Current Visit: No Status: Chronic Code(s): F41.9 - ANXIETY DISORDER, UNSPECIFIED (6) Tachycardia Current Visit: No Status: Chronic Code(s): R00.0 - TACHYCARDIA, UNSPECIFIED (7) Nausea & vomiting Current Visit: Yes Status: Resolved Code(s): R11.2 - NAUSEA WITH VOMITING, UNSPECIFIED (8) Fall (on) (from) other stairs and steps, initial encounter Current Visit: Yes Status: Acute Code(s): W10.9XXA - FALL (ON) (FROM) UNSPECIFIED STAIRS AND STEPS, INIT ENCNTR - Discharge Disposition: Home, Self-Care Condition: Stable Prescriptions: New Meclizine HCl 25 mg [Antivert 25 mg] 25 mg PO Q6H PRN PRN 14 Days #30 tablet PRN Reason: Dizziness Ondansetron ODT 4 MG [Zofran Odt 4 mg] 4 mg PO Q6H PRN PRN 30 Days #30 tablet PRN Reason: Nausea Continue Metoprolol Tartrate [Lopressor] 50 mg PO DAILY Venlafaxine HCl [Effexor Xr] 150 mg PO DAILY Oxybutynin Chloride Xl 5 mg [Ditropan XL 5 MG] 5 mg PO DAILY Estradiol [Vivelle-Dot] 1 patch TOP 2XW Follow up with: RAYMOND NELSON NP [Primary Care Provider] -
[2024-07-05 05:31] LABS: Absolute Neutrophil Ct (ANC) 3.39 x10^3/uL (1.56-6.13); BASOPHIL % 0.9 % (0.1-1.2); Basophil (Absolute #) 0.05 x10^3/uL (0.01-0.08); Eosinophil % 2.1 % (0.7-5.8); Eosinophil (Absolute #) 0.12 x10^3/uL (0.04-0.36); Hematocrit 39.9 % (34.1-44.9); Hemoglobin 14.1 g/dL (11.2-15.7); IMMATURE GRAN # 0.02 x10^3u/L (0.001-0.031); IMMATURE GRAN % 0.3 % (0.001-0.429); Lymphocyte (Absolute #) 1.68 x10^3/uL (1.18-3.74); Lymphocytes % 28.9 % (19.3-51.7); Mean Cell Volume 91.5 fL (79.4-94.8); Mean Corpuscular Hemoglobin 32.3 pg (25.6-32.2); Mean Corpuscular Hgb Concent. 35.3 g/dL (32.2-35.5); Mean Platelet Volume 11.1 fL (9.4-12.3); Monocyte (Absolute #) 0.56 x10^3/uL (0.24-0.86); Monocytes % 9.6 % (4.7-12.5); Neutrophil % 58.2 % (34.0-71.1); Platelet Count 252 x10^3/uL (182-369); Red Blood Count 4.36 x10^6/uL (3.93-5.22); Red Cell Distribution Width 13.2 % (11.7-14.4); White Blood Count 5.8 x10^3/uL (3.98-10.04)
[2024-07-05 05:36] LABS: ALBUMIN 4.7 g/dL (3.5-5.0); ANION GAP 17.7 MEQ/L (5-15); BILIRUBIN,TOTAL 1.9 mg/dL (0.2-1.3); Calcium 9.9 mg/dL (8.4-10.2); Creatinine 1 1.01 mg/dL (0.52-1.04); Potassium 3.2 mmol/L (3.5-5.1); Total Protein 7.8 g/dL (6.3-8.2)
[2024-07-05] MEDS ORDERED: Klor Con PO ONE (07:23)
[2024-07-05] MEDS: Klor Con PO ONE (10:06)
[2024-07-05] MEDS: Effexor XR 75 MG PO SCH (10:07)
[2024-07-05] MEDS: Ditropan XL 5 MG PO SCH (10:07)
[2024-07-05] MEDS: ZOFRAN ODT 4 MG PO PRN (10:07)
[2024-07-05] MEDS: Lopressor 50 MG PO SCH (10:07)
[2024-07-05] MEDS: NICODERM CQ 14 MG TOP SCH (10:53)
[2024-07-05 13:07] VITALS: BP 100/51; PULSE 76; RESP 16; TEMP 97.3; O2SAT 97
== END 2024-07-05 12:27 | disposition home or self-care (01) ==
LOC: ED 12:59 → MED SURG 16:52
PROVIDERS: ADMIT Internal Medicine; ATTEND Internal Medicine
DX: N17.9 Acute kidney failure, unspecified (principal); E86.0 Dehydration; R74.8 Abnormal levels of other serum enzymes; R42 Dizziness and giddiness; W19.XXXA Unspecified fall, initial encounter; W10.9XXA Fall (on) (from) unspecified stairs and steps, initial encounter; R11.2 Nausea with vomiting, unspecified; I10 Essential (primary) hypertension; R00.0 Tachycardia, unspecified; F17.200 Nicotine dependence, unspecified, uncomplicated; F41.9 Anxiety disorder, unspecified; S01.21XA Laceration without foreign body of nose, initial encounter; Z79.899 Other long term (current) drug therapy
CPT/HCPCS: 36000; 36415; 70450; 80053; 81001; 82077; 83735; 84132; 84484; 85025; 93005; 93268; 96360; 96374; 99285; G0378; J2405; Q0162; A9270-GY

== ENCOUNTER 2024-11-14 14:46 | Emergency (ER) | payer MEDICAID ==
--- NOTE | 2024-11-14 14:52 | ERPHSYRPT ---
- History of Present Illness Time Seen by Provider: 11/14/24 14:52 Source: patient, EMS, old records Exam Limitations: no limitations Physician History: This is a 39-year-old white female patient of nurse practitioner Jamaal who arrives to the emergency department by the windows admin service secondary to generalized weakness and cramping in her hands and feet. Patient has a history of SVT but has not been able to take her medicine for the last 2 days because of the vomiting. She also has had a history of hypokalemia in the past and she is concerned that her electrolytes might be low. Patient just completed a 7-day cardiac monitor technician as an outpatient by her fire prevention chief, Dr. Rinaldi. She arrives in sinus tachycardia with heart rate of 158 bpm. Patient does have a history of depression, migraine headaches, anxiety. She has not taken any of her medication in 2 days. Patient drinks alcohol socially and occasionally uses marijuana but no other illicit drugs. She does not have chest pain. She has no abdominal pain at this time. Timing/Duration: day(s) (2), worse Severity: moderate Associated Symptoms: nausea, vomiting, weakness, No shortness of breath, No chest pain Allergies/Adverse Reactions: prednisone Adverse Reaction (Verified 07/04/24 13:07) excessive weight gain Home Medications: Metoprolol Tartrate [Lopressor] 50 mg PO DAILY 11/23/21 [History] Venlafaxine HCl [Effexor Xr] 150 mg PO DAILY 11/23/21 [History] Estradiol [Vivelle-Dot] 1 patch TOP 2XW 05/10/24 [History] Oxybutynin Chloride Xl 5 mg [Ditropan XL 5 MG] 5 mg PO DAILY 05/10/24 [History] Amlodipine Besylate [Norvasc] 10 mg PO DAILY 11/14/24 [History] Ramelteon [Rozerem] 8 mg PO HS 11/14/24 [History] Hx Tetanus, Diphtheria Vaccination/Date Given: Yes Hx Influenza Vaccination/Date Given: No Hx Pneumococcal Vaccination/Date Given: No Travel Risk - International Travel Have you traveled outside of the country in past 3 weeks: No - Emerging Infectious Disease Are you exhibiting symptoms associated with any current EIDs: No Symptoms: Abdominal Pain - Review of Systems Constitutional: Weakness Eyes: No Symptoms Ears, Nose, & Throat: No Symptoms Respiratory: No Symptoms Cardiac: No Symptoms Abdominal/Gastrointestinal: Nausea, Vomiting, Appetite Changes Genitourinary Symptoms: No Symptoms Musculoskeletal: Other (Cramping of hands and feet.) Skin: No Symptoms Neurological: No Symptoms Psychological: No Symptoms Endocrine: No Symptoms Hematologic/Lymphatic: No Symptoms Immunological/Allergic: No Symptoms All Other Systems: Reviewed and Negative - Past Medical History Pertinent Past Medical History: Yes Cardiac History: Arrhythmia Musculoskeletal History: No Pertinent History Other Medical History: tension migraines - Past Surgical History Past Surgical History: Yes Neuro Surgical History: No Pertinent History Cardiac: No Pertinent History Respiratory: No Pertinent History Gastrointestinal: No Pertinent History Genitourinary: No Pertinent History Musculoskeletal: Orthopedic Surgery Female Surgical History: Hysterectomy, Dilation & Curettage, Tubal Ligation Other Surgical History: L wrist, L ankle, IUD placed and removed. failed ablation. Significant Family History: no pertinent family hx - Female History Hx Last Menstrual Period: hyster - Social History Smoking Status: Current every day smoker How long have you smoked: 15 Exposure to second hand smoke: Yes Drug Use: marijuana - Social Determinants of Health Will the patient participate in the screening: Yes Do you worry about a steady place to live?: No In the past 12 months,have you had to go without utilities?: No Transportation Issues: No Has anyone in your support network made you feel unsafe?: No Have you or anyone in your house had to go w/o enough food: No - Nursing Vital Signs Nursing Vital Signs: Initial Vital Signs Temperature 97.1 F 11/14/24 14:47 Pulse Rate 167 H 11/14/24 14:47 Respiratory Rate 24 11/14/24 14:47 Blood Pressure 145/99 11/14/24 14:47 O2 Sat by Pulse Oximetry 99 11/14/24 14:47 Pain Scale Pain Intensity 0 - Physical Exam General Appearance: mild distress, alert, anxiety Eye Exam: PERRL/EOMI, eyes nml inspection Ears, Nose, Throat Exam: normal ENT inspection, moist mucous membranes Neck Exam: normal inspection, non-tender, full range of motion Respiratory Exam: lungs clear, airway intact, No chest tenderness, No respiratory distress Cardiovascular Exam: tachycardia Gastrointestinal/Abdomen Exam: soft, normal bowel sounds, No tenderness Pelvic Exam: not done Rectal Exam: not done Back Exam: normal inspection, normal range of motion, No CVA tenderness, No vertebral tenderness Extremity Exam: normal inspection, normal range of motion, pelvis stable Neurologic Exam: alert, oriented x 3, cooperative, carry all driver II-XII nml as tested, sensation nml Skin Exam: normal color, warm, dry Lymphatic Exam: No adenopathy SpO2 Interpretation: normal O2 Delivery: Room Air - Course Nursing assessment & vital signs reviewed: Yes EKG Interpreted by Me: RATE ([id number]), Sinus Tach, NORMAL AXIS, NORMAL INTERVALS, NORMAL QRS, Other (No acute ischemic changes. QTc is 508) Ordered Tests: Active Orders 24 hr Category Date Time Status EKG-ER Only STAT Care 11/14/24 15:10 Active IV Insertion STAT Care 11/14/24 15:10 Active Pulse Oximetry (ED) STAT Care 11/14/24 15:10 Active Telemetry q4h Care 11/14/24 15:43 Active CBC W DIFF Stat Lab 11/14/24 15:00 Completed CMP Stat Lab 11/14/24 15:00 Completed MAGNESIUM Stat Lab 11/14/24 15:00 Completed MONO SCREEN Stat Lab 11/14/24 15:00 Completed NT PRO BNPII Stat Lab 11/14/24 15:00 Completed TROPONIN Q4H Lab 11/14/24 15:00 Completed TROPONIN Q4H Lab 11/14/24 19:15 Ordered TROPONIN Q4H Lab 11/14/24 23:15 Ordered UA W/RFX UR CULTURE Stat Lab 11/14/24 17:47 Completed Medication Summary Generic Name Dose Route Start Last Admin Trade Name Freq PRN Reason Stop Dose Admin Sodium Chloride 1,000 mls @ 250 mls/hr 11/14/24 15:15 11/14/24 15:15 Sodium Chloride 0.9% 1000 Ml IV 12/14/24 15:14 250 mls/hr .Q4H MANNIE Administration Lactated Ringer's 1,000 mls @ 999 mls/hr 11/14/24 18:12 Lactated Ringers IV 11/14/24 19:12 .Q1H1M ONE Discontinued Medications Generic Name Dose Route Start Last Admin Trade Name Freq PRN Reason Stop Dose Admin Potassium Chloride 20 meq in 100 mls @ 50 mls/hr 11/14/24 15:43 11/14/24 17:48 Potassium Chloride 20 Meq In Water 100ml IV 11/14/24 17:42 Infused STAT ONE Infusion Potassium Chloride Confirm 11/14/24 15:45 Potassium Chloride 20 Meq In Water 100ml Administered 11/14/24 15:46 Dose 100 mls @ ud IV .STK-MED ONE Lactated Ringer's Confirm 11/14/24 18:20 Lactated Ringers Administered 11/14/24 18:21 Dose 1,000 mls @ ud IV .STK-MED ONE Lorazepam 1 mg 11/14/24 15:25 11/14/24 15:29 Lorazepam 2 Mg/1 Ml 2 Mg Vial IV 11/14/24 15:26 1 mg STAT ONE Administration Lorazepam Confirm 11/14/24 15:29 Lorazepam 2 Mg/1 Ml 2 Mg Vial Administered 11/14/24 15:30 Dose 2 mg .ROUTE .STK-MED ONE Metoprolol Tartrate 5 mg 11/14/24 15:13 11/14/24 15:26 Metoprolol Tartrate 5 Mg/5 Ml Vial IV 11/14/24 15:14 5 mg STAT ONE Administration Metoprolol Tartrate Confirm 11/14/24 15:24 Metoprolol Tartrate 5 Mg/5 Ml Vial Administered 11/14/24 15:25 Dose 5 mg IV .STK-MED ONE Morphine Sulfate 4 mg 11/14/24 15:10 11/14/24 15:15 Morphine Sulfate 4 Mg/Ml Injection IV 11/14/24 15:11 4 mg STAT ONE Administration Morphine Sulfate Confirm 11/14/24 15:14 Morphine Sulfate 4 Mg/Ml Injection Administered 11/14/24 15:15 Dose 4 mg .ROUTE .STK-MED ONE Ondansetron HCl 4 mg 11/14/24 15:11 11/14/24 15:15 Ondansetron Hcl 4 Mg/2 Ml Vial IV 11/14/24 15:12 4 mg STAT ONE Administration Ondansetron HCl Confirm 11/14/24 15:14 Ondansetron Hcl 4 Mg/2 Ml Vial Administered 11/14/24 15:15 Dose 4 mg .ROUTE .STK-MED ONE Potassium Chloride 20 meq 11/14/24 16:47 11/14/24 16:54 Potassium Chloride Tab 10 Meq Tab PO 11/14/24 16:48 20 meq STAT ONE Administration Potassium Chloride Confirm 11/14/24 16:52 Potassium Chloride Tab 10 Meq Tab Administered 02/26/25 16:53 Dose 20 meq .ROUTE .[facility] ONE Lab/Rad Data: Laboratory Result Diagrams 11/14/24 15:00 11/14/24 15:00 Laboratory Results 11/14/24 11/14/24 11/14/24 Range/Units 17:47 15:52 15:00 WBC (3.98-10.04) x10^3/uL RBC (3.93-5.22) x10^6/uL Hgb (11.2-15.7) g/dL Hct (34.1-44.9) % MCV (79.4-94.8) fL MCH (25.6-32.2) pg MCHC (32.2-35.5) g/dL RDW (11.7-14.4) % Plt Count (182-369) x10^3/uL MPV (9.4-12.3) fL Gran % (34.0-71.1) % Immature Gran % (Auto) (0.001-0.429) % Nucleat RBC Rel Count (0.00-0.2) % Eos # (Auto) (0.04-0.36) x10^3/uL Immature Gran # (Auto) (0.001-0.031) x10^3u/L Absolute Lymphs (auto) (1.18-3.74) x10^3/uL Absolute Monos (auto) (0.24-0.86) x10^3/uL Absolute Nucleated RBC (0.00-0.012) x10^3u/L Lymphocytes % (19.3-51.7) % Monocytes % (4.7-12.5) % Eosinophils % (0.7-5.8) % Basophils % (0.1-1.2) % Absolute Granulocytes (1.56-6.13) x10^3/uL Basophils # (0.01-0.08) x10^3/uL Sodium (135-145) mmol/L Potassium (3.5-5.1) mmol/L Chloride (98-107) mmol/L Carbon Dioxide (22-30) mmol/L Anion Gap (5-15) MEQ/L BUN (7-17) mg/dL Creatinine (0.52-1.04) mg/dL Estimated GFR ML/MIN Glucose (74-106) mg/dL Calcium (8.4-10.2) mg/dL Magnesium (1.6-2.3) mg/dL Total Bilirubin (0.2-1.3) mg/dL AST (14-36) U/L ALT (0-35) U/L Alkaline Phosphatase (38-126) U/L Troponin I (0.000-0.033) ng/mL NT-Pro-B Natriuret Pep (<300) pg/mL Serum Total Protein (6.3-8.2) g/dL Albumin (3.5-5.0) g/dL Urine Color Yellow (Yellow) Urine Appearance Cloudy A (Clear) Urine pH 8.0 (4.6-8.0) Ur Specific [place] 1.015 (1.005-1.030) Urine Protein 100 A (Negative) Urine Glucose (UA) Negative (Negative) mg/dL Urine Ketones 80 A (Negative) Urine Blood Negative (Negative) Urine Nitrite Negative (Negative) Urine Bilirubin Negative (Negative) Urine Urobilinogen 1.0 A (0.2) mg/dL Ur Leukocyte Esterase Negative (Negative) U Hyaline Cast (Auto) 0-2 (0-2) /LPF Urine Microscopic RBC 0-2 (0-5) /HPF Urine Microscopic WBC 3-5 (0-5) /HPF Ur Epithelial Cells Few (None Seen) /HPF Urine Bacteria Few A (None Seen) /HPF Urine Culture Reflexed NO (NO) Monoscreen NEGATIVE (NEGATIVE) Influenza Type A Ag NEGATIVE (NEGATIVE) Influenza Type B Ag NEGATIVE (NEGATIVE) RSV (PCR) NEGATIVE (NEGATIVE) SARS-CoV-2 (PCR) NEGATIVE (NEGATIVE) 11/14/24 11/14/24 11/14/24 Range/Units 15:00 15:00 15:00 WBC (3.98-10.04) x10^3/uL RBC (3.93-5.22) x10^6/uL Hgb (11.2-15.7) g/dL Hct (34.1-44.9) % MCV (79.4-94.8) fL MCH (25.6-32.2) pg MCHC (32.2-35.5) g/dL RDW (11.7-14.4) % Plt Count (182-369) x10^3/uL MPV (9.4-12.3) fL Gran % (34.0-71.1) % Immature Gran % (Auto) (0.001-0.429) % Nucleat RBC Rel Count (0.00-0.2) % Eos # (Auto) (0.04-0.36) x10^3/uL Immature Gran # (Auto) (0.001-0.031) x10^3u/L Absolute Lymphs (auto) (1.18-3.74) x10^3/uL Absolute Monos (auto) (0.24-0.86) x10^3/uL Absolute Nucleated RBC (0.00-0.012) x10^3u/L Lymphocytes % (19.3-51.7) % Monocytes % (4.7-12.5) % Eosinophils % (0.7-5.8) % Basophils % (0.1-1.2) % Absolute Granulocytes (1.56-6.13) x10^3/uL Basophils # (0.01-0.08) x10^3/uL Sodium 138 (135-145) mmol/L Potassium 2.9 L* (3.5-5.1) mmol/L Chloride 98 (98-107) mmol/L Carbon Dioxide 9 L* (22-30) mmol/L Anion Gap 33.5 H (5-15) MEQ/L BUN 10 (7-17) mg/dL Creatinine 0.73 (0.52-1.04) mg/dL Estimated GFR 108.6 ML/MIN Glucose 192 H (74-106) mg/dL Calcium 10.5 H (8.4-10.2) mg/dL Magnesium 2.0 (1.6-2.3) mg/dL Total Bilirubin 1.80 H (0.2-1.3) mg/dL AST 41 H (14-36) U/L ALT 29 (0-35) U/L Alkaline Phosphatase 126 (38-126) U/L Troponin I < 0.012 (0.000-0.033) ng/mL NT-Pro-B Natriuret Pep 422 (<300) pg/mL Serum Total Protein 8.8 H (6.3-8.2) g/dL Albumin 5.7 H (3.5-5.0) g/dL Urine Color (Yellow) Urine Appearance (Clear) Urine pH (4.6-8.0) Ur Specific [place] (1.005-1.030) Urine Protein (Negative) Urine Glucose (UA) (Negative) mg/dL Urine Ketones (Negative) Urine Blood (Negative) Urine Nitrite (Negative) Urine Bilirubin (Negative) Urine Urobilinogen (0.2) mg/dL Ur Leukocyte Esterase (Negative) U Hyaline Cast (Auto) (0-2) /LPF Urine Microscopic RBC (0-5) /HPF Urine Microscopic WBC (0-5) /HPF Ur Epithelial Cells (None Seen) /HPF Urine Bacteria (None Seen) /HPF Urine Culture Reflexed (NO) Monoscreen (NEGATIVE) Influenza Type A Ag (NEGATIVE) Influenza Type B Ag (NEGATIVE) RSV (PCR) (NEGATIVE) SARS-CoV-2 (PCR) (NEGATIVE) 11/14/24 Range/Units 15:00 WBC 9.0 (3.98-10.04) x10^3/uL RBC 5.36 H (3.93-5.22) x10^6/uL Hgb 16.7 H (11.2-15.7) g/dL Hct 47.8 H (34.1-44.9) % MCV 89.2 (79.4-94.8) fL MCH 31.2 (25.6-32.2) pg MCHC 34.9 (32.2-35.5) g/dL RDW 15.9 H (11.7-14.4) % Plt Count 257 (182-369) x10^3/uL MPV 10.6 (9.4-12.3) fL Gran % 75.4 H (34.0-71.1) % Immature Gran % (Auto) 0.4 (0.001-0.429) % Nucleat RBC Rel Count 0.0 (0.00-0.2) % Eos # (Auto) 0.09 (0.04-0.36) x10^3/uL Immature Gran # (Auto) 0.04 H (0.001-0.031) x10^3u/L Absolute Lymphs (auto) 1.51 (1.18-3.74) x10^3/uL Absolute Monos (auto) 0.53 (0.24-0.86) x10^3/uL Absolute Nucleated RBC 0.00 (0.00-0.012) x10^3u/L Lymphocytes % 16.9 L (19.3-51.7) % Monocytes % 5.9 (4.7-12.5) % Eosinophils % 1.0 (0.7-5.8) % Basophils % 0.4 (0.1-1.2) % Absolute Granulocytes 6.75 H (1.56-6.13) x10^3/uL Basophils # 0.04 (0.01-0.08) x10^3/uL Sodium (135-145) mmol/L Potassium (3.5-5.1) mmol/L Chloride (98-107) mmol/L Carbon Dioxide (22-30) mmol/L Anion Gap (5-15) MEQ/L BUN (7-17) mg/dL Creatinine (0.52-1.04) mg/dL Estimated GFR ML/MIN Glucose (74-106) mg/dL Calcium (8.4-10.2) mg/dL Magnesium (1.6-2.3) mg/dL Total Bilirubin (0.2-1.3) mg/dL AST (14-36) U/L ALT (0-35) U/L Alkaline Phosphatase (38-126) U/L Troponin I (0.000-0.033) ng/mL NT-Pro-B Natriuret Pep (<300) pg/mL Serum Total Protein (6.3-8.2) g/dL Albumin (3.5-5.0) g/dL Urine Color (Yellow) Urine Appearance (Clear) Urine pH (4.6-8.0) Ur Specific [place] (1.005-1.030) Urine Protein (Negative) Urine Glucose (UA) (Negative) mg/dL Urine Ketones (Negative) Urine Blood (Negative) Urine Nitrite (Negative) Urine Bilirubin (Negative) Urine Urobilinogen (0.2) mg/dL Ur Leukocyte Esterase (Negative) U Hyaline Cast (Auto) (0-2) /LPF Urine Microscopic RBC (0-5) /HPF Urine Microscopic WBC (0-5) /HPF Ur Epithelial Cells (None Seen) /HPF Urine Bacteria (None Seen) /HPF Urine Culture Reflexed (NO) Monoscreen (NEGATIVE) Influenza Type A Ag (NEGATIVE) Influenza Type B Ag (NEGATIVE) RSV (PCR) (NEGATIVE) SARS-CoV-2 (PCR) (NEGATIVE) - Progress Progress: improved Progress Note: 11/14/24 15:31 Medical decision making in the assignment of at least moderate complexity was based on review of the patient's past medical history, review of the patient's medication list, review patient drug allergy list, history present illness and physical findings on examination. The workup in this patient includes placement of intravenous line, infusion of normal saline solution, infusion of morphine, infusion of of Zofran, infusion of Ativan, CBC, CMP, magnesium level, troponin level, twelve-lead EKG, viral swabs and monotest. Differential diagnosis includes but is not limited to anxiety about health, dehydration, urinary tract infection, electrolyte abnormalities, myocardial infarction, viral illness 11/14/24 17:56 I interpreted the patient's laboratory data results and reexamined the patient. Based on the laboratory data results, she does have a potassium of 2.9. Her nausea and vomiting has subsided and we will provide her with 20 mEq of oral potassium and a K rider of 20 mEq of potassium chloride. The patient magnesium is normal. Patient is feeling much better. I interpreted the patient's repeat twelve-lead EKG that was performed at 1619 on 11/14/2024. Heart rate is 109 bpm. The rhythm is sinus tachycardia. There is borderline prolonged QT interval with a QTc of 487. There is normal axis deviation. There is normal QRS. There is no evidence of ischemia. Counseled pt/family regarding: lab results, diagnosis Medical Desision Making - Independent Historian Additional History obtained from: Residential Construction Instructor/EMT - Diagnostic Testing Diagnostic test were ordered, analyzed, and reviewed by me: Yes - Risk of complications The pt has a mod risk of morbidity or mortality based on: Need for prescription drug management - Departure Departure Disposition: Home Clinical Impression: Sinus tachycardia, Hyperventilation, Hypokalemia, Anxiety about health Condition: Stable Critical Care Time: Yes Critical Care Time(excluding separately billable procedures): Critical 30-74 mins (45) Referrals: RAYMOND NELSON PASTRY COOK [Primary Care Provider] - Follow up/PCP as directed Additional Instructions: Drink plenty of liquids. Take your medications as prescribed. Call your fire prevention chief and prescribing provider tomorrow, 11/15/2024, to make arrangement for follow-up appointment for further evaluation and management Prescriptions: Ondansetron ODT 4 MG [Zofran Odt 4 mg] 4 mg PO Q6H PRN PRN #10 tablet PRN Reason: Vomiting Potassium Chloride Tab* [Klor Con] 10 meq PO BID #5 tab
[2024-11-14 14:54] VITALS: TEMP 97.1
[2024-11-14] MEDS ORDERED: MORPHINE SULFATE 4 MG INJ ONE ×2 (15:14→18:52)
[2024-11-14] MEDS ORDERED: Sodium Chloride 0.9% 1000 ML 1,000 ML ONE (15:14)
[2024-11-14] MEDS ORDERED: Zofran 4 MG/2 ML VIAL ONE (15:14)
[2024-11-14] MEDS: Sodium Chloride 0.9% 1000 ML 1,000 ML IV SCH (15:15)
[2024-11-14] MEDS: MORPHINE SULFATE 4 MG INJ IV ONE ×2 (15:15→18:54)
[2024-11-14] MEDS: Zofran 4 MG/2 ML VIAL IV ONE (15:15)
[2024-11-14 15:16] LABS: Absolute Neutrophil Ct (ANC) 6.75 x10^3/uL (1.56-6.13); BASOPHIL % 0.4 % (0.1-1.2); Basophil (Absolute #) 0.04 x10^3/uL (0.01-0.08); Eosinophil (Absolute #) 0.09 x10^3/uL (0.04-0.36); Hematocrit 47.8 % (34.1-44.9); Hemoglobin 16.7 g/dL (11.2-15.7); IMMATURE GRAN # 0.04 x10^3u/L (0.001-0.031); IMMATURE GRAN % 0.4 % (0.001-0.429); Lymphocyte (Absolute #) 1.51 x10^3/uL (1.18-3.74); Lymphocytes % 16.9 % (19.3-51.7); Mean Cell Volume 89.2 fL (79.4-94.8); Mean Corpuscular Hemoglobin 31.2 pg (25.6-32.2); Mean Corpuscular Hgb Concent. 34.9 g/dL (32.2-35.5); Mean Platelet Volume 10.6 fL (9.4-12.3); Monocyte (Absolute #) 0.53 x10^3/uL (0.24-0.86); Monocytes % 5.9 % (4.7-12.5); Neutrophil % 75.4 % (34.0-71.1); Platelet Count 257 x10^3/uL (182-369); Red Blood Count 5.36 x10^6/uL (3.93-5.22); Red Cell Distribution Width 15.9 % (11.7-14.4)
[2024-11-14 15:23] LABS: ALBUMIN 5.7 g/dL (3.5-5.0); ANION GAP 33.5 MEQ/L (5-15); BILIRUBIN,TOTAL 1.8 mg/dL (0.2-1.3); Calcium 10.5 mg/dL (8.4-10.2); Creatinine 1 0.73 mg/dL (0.52-1.04); EST GLOMERULAR FILTRATION RATE 108.6 ML/MIN; Total Protein 8.8 g/dL (6.3-8.2)
[2024-11-14] MEDS ORDERED: LOPRESSOR INJECTION IV ONE (15:24)
[2024-11-14] MEDS: LOPRESSOR INJECTION IV ONE (15:26)
[2024-11-14] MEDS: Ativan 2 MG/1 ML VIAL IV ONE (15:29)
[2024-11-14] MEDS ORDERED: Ativan 2 MG/1 ML VIAL ONE (15:29)
[2024-11-14 15:38] LABS: Potassium 2.9 mmol/L (3.5-5.1)
[2024-11-14] MEDS ORDERED: POTASSIUM CHLORIDE 20 mEq IN WATER 100ML 100 ML IV ONE (15:45)
[2024-11-14] MEDS: POTASSIUM CHLORIDE 20 mEq IN WATER 100ML 20 MEQ/100 ML BAG IV ONE (15:47)
[2024-11-14] MEDS ORDERED: Klor Con ONE (16:52)
[2024-11-14] MEDS: Klor Con PO ONE (16:54)
[2024-11-14 17:40] LABS: INFLUENZA A NEGATIVE (NEGATIVE); INFLUENZA B NEGATIVE (NEGATIVE); RESPIRATORY SYNCTIAL VIRUS NEGATIVE (NEGATIVE); SARS-CoV-2 Xpert Express NEGATIVE (NEGATIVE)
[2024-11-14 18:09] LABS: Appearance Cloudy (Clear); Bilirubin Negative (Negative); Blood Negative (Negative); Glucose, Urine Negative (Negative); Ketones 80 (Negative); Leukocyte Esterase Negative (Negative); Nitrite Negative (Negative); Protein,Urine Dip 100 (Negative); RBC 0-2 /HPF (0-5); Specific Gravity 1.015 (1.005-1.030)
[2024-11-14 18:10] LABS: Bacteria Few /HPF (None Seen); Epithelial Cells Few /HPF (None Seen); Hyaline Casts 0-2 /LPF (0-2)
[2024-11-14] MEDS ORDERED: Lactated Ringers 1,000 ML IV ONE (18:20)
[2024-11-14] MEDS: Lactated Ringers 1,000 ML IV ONE (18:27)
[2024-11-14 19:14] VITALS: BP 121/71; PULSE 85; RESP 15; O2SAT 99
== END 2024-11-14 19:40 | disposition home or self-care (01) ==
LOC: ED 14:46
DX: R00.0 Tachycardia, unspecified (principal); R06.4 Hyperventilation; E87.6 Hypokalemia; F45.9 Somatoform disorder, unspecified; R53.1 Weakness; Z79.899 Other long term (current) drug therapy; Z72.0 Tobacco use
CPT/HCPCS: 0241U; 36415; 80053; 81001; 83735; 83880; 84484; 85025; 86308; 93005; 94760; 96361; 96365; 96366; 96375; 96376; 99291; 96374; 99284; J2060; J2270; J2405; J3480; A9270-GY

== ENCOUNTER 2025-06-03 19:20 | Observation (INO) | payer MEDICAID ==
--- NOTE | 2025-06-03 19:57 | ERPHSYRPT ---
- History of Present Illness Time Seen by Provider: 06/03/25 22:07 Historian: patient Patient Subjective Stated Complaint: PT STATES AROUND 5PM YESTERDAY SHE HAS NOT FELT WELL AND HAS BEEN VOMITING WITH NO RELIEF Triage Nursing Assessment: PT IS ALERT/ORIENTED, HYPERTENSIVE, TACHY, SKIN CLAMMY, DRY HEAVING, Physician History: Patient is a 39-year-old female history of cardiac arrhythmias, hypertension, depression, uterine fibroids, tubal ligation, current smoker presents to our ED for evaluation of generalized malaise, epigastric pain, nausea and vomiting. No diarrhea. Symptoms started yesterday and has been constant. No fever no rash. Symptoms are mild to moderate in intensity. No specific worsening or improving factors. Patient otherwise feels well. She voices no other complaints or concerns at this time. Portions of this note were created with voice recognition technology. There may be grammatical, spelling, punctuation or sound alike errors Timing/Duration: yesterday Activities at Onset: none Quality: aching Abdominal Pain Onset Location: epigastric Pain Radiation: no radiation Severity of Pain-Max: moderate Severity of Pain-Current: mild Modifying Factors: Improves With: nothing Associated Symptoms: nausea, vomiting Previous symptoms: no prior history Allergies/Adverse Reactions: prednisone Adverse Reaction (Verified 05/14/25 06:44) excessive weight gain Home Medications: Metoprolol Tartrate [Lopressor] 50 mg PO DAILY 11/23/21 [History] Venlafaxine HCl [Effexor Xr] 150 mg PO DAILY 11/23/21 [History] Estradiol [Vivelle-Dot] 1 patch TOP 2XW 05/10/24 [History] Amlodipine Besylate [Norvasc] 10 mg PO DAILY 11/14/24 [History] Ramelteon [Rozerem] 8 mg PO HS 11/14/24 [History] Aspirin EC 81 mg [Ecotrin 81 mg] 81 mg PO DAILY 05/14/25 [History] Black Cohosh [Black Cohosh Root] 540 mg PO DAILY 05/14/25 [History] Mirabegron [Myrbetriq] 25 mg PO DAILY 05/14/25 [History] Hx Tetanus, Diphtheria Vaccination/Date Given: Yes Hx Influenza Vaccination/Date Given: No Hx Pneumococcal Vaccination/Date Given: No Travel Risk - International Travel Have you traveled outside of the country in past 3 weeks: No - Emerging Infectious Disease Are you exhibiting symptoms associated with any current EIDs: No Symptoms: Abdominal Pain - Review of Systems All Other Systems: Reviewed and Negative - Past Medical History Pertinent Past Medical History: Yes Neurological History: No Pertinent History ENT History: No Pertinent History Cardiac History: Arrhythmia, Hypertension Respiratory History: No Pertinent History Endocrine Medical History: No Pertinent History Musculoskeletal History: Fractures, Other GI Medical History: No Pertinent History History: No Pertinent History Psycho-Social History: Anxiety, Depression Female Reproductive Disorders: Abnormal Uterine Bleeding, Fibroids Other Medical History: SX HX: LEFT ANKLE RECONSTRUCTION DUE TO FRACTURE - NO HARDWARE - USED DISPOSABLE SCREW 2014, LEFT WRIST GANGLION CYST REMOVAL AT AGE 20, "FEMALE SURGERIES" - Past Surgical History Past Surgical History: Yes Neuro Surgical History: No Pertinent History Cardiac: No Pertinent History Respiratory: No Pertinent History Gastrointestinal: No Pertinent History Genitourinary: No Pertinent History Musculoskeletal: Orthopedic Surgery Female Surgical History: Hysterectomy, Dilation & Curettage, Tubal Ligation Other Surgical History: L wrist, L ankle, IUD placed and removed. failed ablation. Significant Family History: no pertinent family hx - Female History Hx Last Menstrual Period: hyster Hx Now: No - Social History Smoking Status: Current every day smoker Exposure to second hand smoke: Yes Drug Use: none - Social Determinants of Health Will the patient participate in the screening: Yes Do you worry about a steady place to live?: No Do you have any problems with any of the following?: No known problems In the past 12 months,have you had to go without utilities?: No Transportation Issues: No Has anyone in your support network made you feel unsafe?: No Have you or anyone in your house had to go w/o enough food: No - Nursing Vital Signs Nursing Vital Signs: Initial Vital Signs Temperature 97.6 F 06/03/25 19:29 Pulse Rate 71 06/03/25 19:29 Respiratory Rate 18 06/03/25 19:29 Blood Pressure 168/123 06/03/25 19:29 O2 Sat by Pulse Oximetry 97 06/03/25 19:29 Pain Scale Pain Intensity 4 - Physical Exam General Appearance: no apparent distress, alert Ears, Nose, Throat Exam: normal ENT inspection, pharynx normal, moist mucous membranes Neck Exam: normal inspection, full range of motion Respiratory Exam: normal breath sounds, lungs clear, airway intact, No respiratory distress Cardiovascular Exam: regular rate/rhythm, normal heart sounds Gastrointestinal/Abdomen Exam: soft, tenderness (Epigastric tenderness), No mass Back Exam: normal inspection, normal range of motion, No CVA tenderness, No vertebral tenderness Extremity Exam: normal inspection, normal range of motion, pelvis stable Neurologic Exam: alert, oriented x 3, cooperative, normal mood/affect, sensation nml, No motor deficits Skin Exam: normal color, warm, dry Lymphatic Exam: adenopathy SpO2 Interpretation: normal SpO2: 97 O2 Delivery: Room Air - Course Nursing assessment & vital signs reviewed: Yes EKG Interpreted by Me: RATE ([id number]), Sinus Tach, NORMAL AXIS, NORMAL INTERVALS, NORMAL QRS - CT Exams Abdomen/Pelvis CT Interpretation: Tele-radiologist Report (Stable small right renal cyst otherwise continued normal abdomen pelvis) Ordered Tests: Active Orders 24 hr Category Date Time Status EKG-ER Only STAT Care 06/03/25 19:54 Active EKG-ER Only STAT Care 06/04/25 00:00 Active IV Insertion STAT Care 06/03/25 19:54 Active ABDOMEN AND PELVIS W CONTRAST [CT] Stat Exams 06/03/25 19:55 Taken CBC W DIFF Stat Lab 06/03/25 19:50 Completed CMP Stat Lab 06/03/25 19:50 Completed CULTURE,URINE Stat Lab 06/03/25 19:54 Received LIPASE Stat Lab 06/03/25 19:50 Completed Lactic Acid Stat Lab 06/03/25 22:45 Completed TROPONIN Q4H Lab 06/03/25 19:50 Completed TROPONIN Q4H Lab 06/03/25 22:55 Completed TROPONIN Q4H Lab 06/04/25 04:00 Ordered UA W/RFX UR CULTURE Stat Lab 06/03/25 19:54 Completed Medication Summary Generic Name Dose Route Start Last Admin Trade Name Freq PRN Reason Stop Dose Admin Sodium Chloride 1,000 mls @ 100 mls/hr 06/03/25 20:00 06/03/25 23:12 Sodium Chloride 0.9% 1000 Ml IV 07/03/25 19:59 Infused .Q10H MANNIE Infusion Lactated Ringer's 1,000 mls @ 250 mls/hr 06/03/25 23:00 06/03/25 23:08 Lactated Ringers IV 07/03/25 22:59 250 mls/hr .Q4H MANNIE Administration Discontinued Medications Generic Name Dose Route Start Last Admin Trade Name Blade PRN Reason Stop Dose Admin Al Hydrox/Mg Hydrox/Simethicone Confirm 06/03/25 20:57 Mag Hydrox/Al Hydrox/Simeth 30 Ml Udcup Administered 06/03/25 20:58 Dose 30 ml .ROUTE .STK-MED ONE Ceftriaxone Sodium 1 gm in 100 mls @ 200 mls/hr 06/03/25 22:11 06/03/25 23:05 Rocephin 1 Gm / 100 Ml Nacl IV 06/03/25 22:40 Infused STAT ONE Infusion Ceftriaxone Sodium Confirm 06/03/25 22:32 Rocephin 1 Gm / 100 Ml Nacl Administered 06/03/25 22:33 Dose 1 gm in 100 mls @ ud IV .STK-MED ONE Lidocaine HCl Confirm 06/03/25 20:56 Lidocaine Hcl 2% Viscous 15 Ml Udcup Administered 06/03/25 20:57 Dose 15 ml .ROUTE .STK-MED ONE Magnesium Hydroxide 45 ml 06/03/25 20:53 06/03/25 20:58 Mag Hydrx/Alum Hyd/Simeth/Lido 45 Ml Bottle PO 06/03/25 20:54 45 ml STAT ONE Administration Metoclopramide HCl 10 mg 06/03/25 23:26 06/03/25 23:29 Metoclopramide Hcl 10 Mg/2 Ml Vial IV 06/03/25 23:27 10 mg STAT ONE Administration Metoclopramide HCl Confirm 06/03/25 23:28 Metoclopramide Hcl 10 Mg/2 Ml Vial Administered 06/03/25 23:29 Dose 10 mg .ROUTE .STK-MED ONE Ondansetron HCl 4 mg 06/03/25 19:54 06/03/25 20:00 Zofran 4 Mg/Udtablet Orally Disintegrating PO 06/03/25 19:55 Not Given STAT ONE Ondansetron HCl 4 mg 06/03/25 19:59 06/03/25 20:03 Ondansetron Hcl 4 Mg/2 Ml Vial IV 06/03/25 20:00 4 mg STAT STA Administration Ondansetron HCl Confirm 06/03/25 20:01 Ondansetron Hcl 4 Mg/2 Ml Vial Administered 06/03/25 20:02 Dose 4 mg .ROUTE .STK-MED ONE Lab/Rad Data: Laboratory Result Diagrams 06/03/25 19:50 06/03/25 19:50 Laboratory Results 06/03/25 06/03/25 06/03/25 Range/Units 22:55 22:45 22:45 WBC (3.98-10.04) x10^3/uL RBC (3.93-5.22) x10^6/uL Hgb (11.2-15.7) g/dL Hct (34.1-44.9) % MCV (79.4-94.8) fL MCH (25.6-32.2) pg MCHC (32.2-35.5) g/dL RDW (11.7-14.4) % Plt Count (182-369) x10^3/uL MPV (9.4-12.3) fL Gran % (34.0-71.1) % Immature Gran % (Auto) (0.001-0.429) % Nucleat RBC Rel Count (0.00-0.2) % Eos # (Auto) (0.04-0.36) x10^3/uL Immature Gran # (Auto) (0.001-0.031) x10^3u/L Absolute Lymphs (auto) (1.18-3.74) x10^3/uL Absolute Monos (auto) (0.24-0.86) x10^3/uL Absolute Nucleated RBC (0.00-0.012) x10^3u/L Lymphocytes % (19.3-51.7) % Monocytes % (4.7-12.5) % Eosinophils % (0.7-5.8) % Basophils % (0.1-1.2) % Absolute Granulocytes (1.56-6.13) x10^3/uL Basophils # (0.01-0.08) x10^3/uL Sodium (135-145) mmol/L Potassium (3.5-5.1) mmol/L Chloride (98-107) mmol/L Carbon Dioxide (22-30) mmol/L Anion Gap (5-15) MEQ/L BUN (7-17) mg/dL Creatinine (0.52-1.04) mg/dL Estimated GFR ML/MIN Glucose (74-106) mg/dL Lactic Acid 1.5 (0.4-2.0) Calcium (8.4-10.2) mg/dL Total Bilirubin (0.2-1.3) mg/dL AST (14-36) U/L ALT (0-35) U/L Alkaline Phosphatase (38-126) U/L Troponin I 0.017 (0.000-0.033) ng/mL Serum Total Protein (6.3-8.2) g/dL Albumin (3.5-5.0) g/dL Lipase (23-300) U/L Urine Color (Yellow) Urine Appearance (Clear) Urine pH (4.6-8.0) Ur Specific [place] (1.005-1.030) Urine Protein (Negative) Urine Glucose (UA) (Negative) mg/dL Urine Ketones (Negative) Urine Blood (Negative) Urine Nitrite (Negative) Urine Bilirubin (Negative) Urine Urobilinogen (0.2) mg/dL Ur Leukocyte Esterase (Negative) U Hyaline Cast (Auto) (0-2) /LPF Urine Microscopic RBC (0-5) /HPF Urine Microscopic WBC (0-5) /HPF Ur Epithelial Cells (None Seen) /HPF Urine Bacteria (None Seen) /HPF Urine Culture Reflexed (NO) Influenza Type A Ag NEGATIVE (NEGATIVE) Influenza Type B Ag NEGATIVE (NEGATIVE) RSV (PCR) NEGATIVE (NEGATIVE) SARS-CoV-2 (PCR) NEGATIVE (NEGATIVE) 06/03/25 06/03/25 06/03/25 Range/Units 19:54 19:50 19:50 WBC (3.98-10.04) x10^3/uL RBC (3.93-5.22) x10^6/uL Hgb (11.2-15.7) g/dL Hct (34.1-44.9) % MCV (79.4-94.8) fL MCH (25.6-32.2) pg MCHC (32.2-35.5) g/dL RDW (11.7-14.4) % Plt Count (182-369) x10^3/uL MPV (9.4-12.3) fL Gran % (34.0-71.1) % Immature Gran % (Auto) (0.001-0.429) % Nucleat RBC Rel Count (0.00-0.2) % Eos # (Auto) (0.04-0.36) x10^3/uL Immature Gran # (Auto) (0.001-0.031) x10^3u/L Absolute Lymphs (auto) (1.18-3.74) x10^3/uL Absolute Monos (auto) (0.24-0.86) x10^3/uL Absolute Nucleated RBC (0.00-0.012) x10^3u/L Lymphocytes % (19.3-51.7) % Monocytes % (4.7-12.5) % Eosinophils % (0.7-5.8) % Basophils % (0.1-1.2) % Absolute Granulocytes (1.56-6.13) x10^3/uL Basophils # (0.01-0.08) x10^3/uL Sodium 137 (135-145) mmol/L Potassium 3.4 L (3.5-5.1) mmol/L Chloride 94 L (98-107) mmol/L Carbon Dioxide 17 L (22-30) mmol/L Anion Gap 28.8 H (5-15) MEQ/L BUN 21 H (7-17) mg/dL Creatinine 0.94 (0.52-1.04) mg/dL Estimated GFR 80.2 ML/MIN Glucose 112 H (74-106) mg/dL Lactic Acid (0.4-2.0) Calcium 11.3 H (8.4-10.2) mg/dL Total Bilirubin 1.80 H (0.2-1.3) mg/dL AST 41 H (14-36) U/L ALT 18 (0-35) U/L Alkaline Phosphatase 102 (38-126) U/L Troponin I 0.016 (0.000-0.033) ng/mL Serum Total Protein 9.8 H (6.3-8.2) g/dL Albumin 5.7 H (3.5-5.0) g/dL Lipase 98 (23-300) U/L Urine Color Yellow (Yellow) Urine Appearance Clear (Clear) Urine pH 7.5 (4.6-8.0) Ur Specific [place] >=1.030 A (1.005-1.030) Urine Protein Trace A (Negative) Urine Glucose (UA) Negative (Negative) mg/dL Urine Ketones 80 A (Negative) Urine Blood Negative (Negative) Urine Nitrite Negative (Negative) Urine Bilirubin Negative (Negative) Urine Urobilinogen 1.0 A (0.2) mg/dL Ur Leukocyte Esterase Small A (Negative) U Hyaline Cast (Auto) 3-5 A (0-2) /LPF Urine Microscopic RBC 0-2 (0-5) /HPF Urine Microscopic WBC 11-20 A (0-5) /HPF Ur Epithelial Cells None Seen (None Seen) /HPF Urine Bacteria None Seen (None Seen) /HPF Urine Culture Reflexed YES (NO) Influenza Type A Ag (NEGATIVE) Influenza Type B Ag (NEGATIVE) RSV (PCR) (NEGATIVE) SARS-CoV-2 (PCR) (NEGATIVE) 06/03/25 Range/Units 19:50 WBC 14.0 H (3.98-10.04) x10^3/uL RBC 4.46 (3.93-5.22) x10^6/uL Hgb 15.6 (11.2-15.7) g/dL Hct 43.9 (34.1-44.9) % MCV 98.4 H (79.4-94.8) fL MCH 35.0 H (25.6-32.2) pg MCHC 35.5 (32.2-35.5) g/dL RDW 14.6 H (11.7-14.4) % Plt Count 289 (182-369) x10^3/uL MPV 10.8 (9.4-12.3) fL Gran % 82.9 H (34.0-71.1) % Immature Gran % (Auto) 0.2 (0.001-0.429) % Nucleat RBC Rel Count 0.0 (0.00-0.2) % Eos # (Auto) 0 L (0.04-0.36) x10^3/uL Immature Gran # (Auto) 0.03 (0.001-0.031) x10^3u/L Absolute Lymphs (auto) 1.44 (1.18-3.74) x10^3/uL Absolute Monos (auto) 0.91 H (0.24-0.86) x10^3/uL Absolute Nucleated RBC 0.00 (0.00-0.012) x10^3u/L Lymphocytes % 10.3 L (19.3-51.7) % Monocytes % 6.5 (4.7-12.5) % Eosinophils % 0.0 L (0.7-5.8) % Basophils % 0.1 (0.1-1.2) % Absolute Granulocytes 11.64 H (1.56-6.13) x10^3/uL Basophils # 0.01 (0.01-0.08) x10^3/uL Sodium (135-145) mmol/L Potassium (3.5-5.1) mmol/L Chloride (98-107) mmol/L Carbon Dioxide (22-30) mmol/L Anion Gap (5-15) MEQ/L BUN (7-17) mg/dL Creatinine (0.52-1.04) mg/dL Estimated GFR ML/MIN Glucose (74-106) mg/dL Lactic Acid (0.4-2.0) Calcium (8.4-10.2) mg/dL Total Bilirubin (0.2-1.3) mg/dL AST (14-36) U/L ALT (0-35) U/L Alkaline Phosphatase (38-126) U/L Troponin I (0.000-0.033) ng/mL Serum Total Protein (6.3-8.2) g/dL Albumin (3.5-5.0) g/dL Lipase (23-300) U/L Urine Color (Yellow) Urine Appearance (Clear) Urine pH (4.6-8.0) Ur Specific [place] (1.005-1.030) Urine Protein (Negative) Urine Glucose (UA) (Negative) mg/dL Urine Ketones (Negative) Urine Blood (Negative) Urine Nitrite (Negative) Urine Bilirubin (Negative) Urine Urobilinogen (0.2) mg/dL Ur Leukocyte Esterase (Negative) U Hyaline Cast (Auto) (0-2) /LPF Urine Microscopic RBC (0-5) /HPF Urine Microscopic WBC (0-5) /HPF Ur Epithelial Cells (None Seen) /HPF Urine Bacteria (None Seen) /HPF Urine Culture Reflexed (NO) Influenza Type A Ag (NEGATIVE) Influenza Type B Ag (NEGATIVE) RSV (PCR) (NEGATIVE) SARS-CoV-2 (PCR) (NEGATIVE) - Progress Progress: unchanged, improved Progress Note: Patient is a 39-year-old female history of cardiac arrhythmias, hypertension, depression, uterine fibroids, tubal ligation, current smoker presents to our ED for evaluation of generalized malaise, epigastric pain, nausea and vomiting. Physical exam shows a sinus tachycardia. Physical exam otherwise nonremarkable. Reveals a leukocytosis anion gap acidosis increased total bili and a urinary tract infection. IV fluids administered. Antiemetics administered. Patient received a dose of Rocephin. A liter lactated ringer currently running. Patient reassessed. She states she feels better but is not quite ready to go home. Patient will be admitted for further evaluation and treatment. Case discussed with hospitalist who accepts admission to observation at 1:19 AM. Plan of care discussed with patient. She agrees to admission at [facility] for further evaluation and treatment. Portions of this note were created with voice recognition technology. There may be grammatical, spelling, punctuation or sound alike errors History obtained from patient. Differential diagnosis is gastritis, sepsis, dehydration, enteritis Complexity of problem addressed is moderate acute complicated. No critical care time. Complexity of data reviewed and analyzed is extensive. Test ordered chest reviewed results analyzed and correlated clinically with history and physical exam. Management discussed with hospitalist who accepts admission to observation. Risk of complication and or risk of morbidity/mortality of patient management is high. Patient requires hospitalization for further evaluation and treatment. Vital stable. Time spent to admit patient is approximately 20 minutes. Plan of care established for shared decision making. No social determinants of health present to impede follow-up. Portions of this note were created with voice recognition technology. There may be grammatical, spelling, punctuation or sound alike errors 06/04/25 01:31 06/04/25 01:34 Counseled pt/family regarding: diagnosis, need for follow-up, rad results - Departure Departure Disposition: Observation Clinical Impression: Leukocytosis, Urinary tract infection, Dehydration, Renal cyst, right, Nausea and vomiting, High anion gap metabolic acidosis, Total bilirubin, elevated, Tachycardia Condition: Stable Critical Care Time: No Referrals: RAYMOND NELSON, JARON [Primary Care Provider, [facility]] - Follow up/PCP as directed
[2025-06-03] MEDS: ZOFRAN ODT 4 MG PO ONE (20:00)
[2025-06-03 20:01] LABS: BASOPHIL % 0.1 % (0.1-1.2); Basophil (Absolute #) 0.01 x10^3/uL (0.01-0.08); Eosinophil (Absolute #) 0 x10^3/uL (0.04-0.36); Hematocrit 43.9 % (34.1-44.9); Hemoglobin 15.6 g/dL (11.2-15.7); IMMATURE GRAN # 0.03 x10^3u/L (0.001-0.031); IMMATURE GRAN % 0.2 % (0.001-0.429); Lymphocyte (Absolute #) 1.44 x10^3/uL (1.18-3.74); Mean Corpuscular Hemoglobin 35.0 pg (25.6-32.2); Mean Corpuscular Hgb Concent. 35.5 g/dL (32.2-35.5); Monocyte (Absolute #) 0.91 x10^3/uL (0.24-0.86); NUCLEATED RBC # 0.00 x10^3u/L (0.00-0.012); NUCLEATED RBC % 0.0 % (0.00-0.2); Platelet Count 289 x10^3/uL (182-369); Red Blood Count 4.46 x10^6/uL (3.93-5.22); White Blood Count 14.0 x10^3/uL (3.98-10.04)
[2025-06-03] MEDS ORDERED: Zofran 4 MG/2 ML VIAL ONE (20:01)
[2025-06-03] MEDS: Zofran 4 MG/2 ML VIAL IV STA (20:03)
[2025-06-03 20:09] LABS: Calcium 11.3 mg/dL (8.4-10.2); Carbon Dioxide 17.0 mmol/L (22-30); Creatinine 1 0.94 mg/dL (0.52-1.04); EST GLOMERULAR FILTRATION RATE 80.2 ML/MIN; Glucose 112.0 mg/dL (74-106); Potassium 3.4 mmol/L (3.5-5.1); SGOT/AST 41.0 U/L (14-36); SGPT/ALT 18.0 U/L (0-35); Total Protein 9.8 g/dL (6.3-8.2)
[2025-06-03] MEDS ORDERED: XYLOCAINE VISCOUS 2% 15 ML CUP ONE (20:56)
[2025-06-03] MEDS ORDERED: MAALOX ES 30 ML UNIT DOSE ONE (20:57)
[2025-06-03] MEDS: GI COCKTAIL 45 ML (Maalox/Lidocaine) PO ONE (20:58)
[2025-06-03 21:40] LABS: Glucose, Urine Negative (Negative); Protein,Urine Dip Trace (Negative); RBC 0-2 /HPF (0-5)
[2025-06-03] MEDS ORDERED: ROCEPHIN 1 GM / 100 ML NaCl 1 GM/100 ML IVPB IV ONE (22:32)
[2025-06-03] MEDS: ROCEPHIN 1 GM / 100 ML NaCl 1 GM/100 ML IVPB IV ONE (22:35)
[2025-06-03] MEDS: Lactated Ringers 1,000 ML IV SCH (23:08)
[2025-06-03 23:26] LABS: INFLUENZA A NEGATIVE (NEGATIVE); INFLUENZA B NEGATIVE (NEGATIVE); RESPIRATORY SYNCTIAL VIRUS NEGATIVE (NEGATIVE); SARS-CoV-2 Xpert Express NEGATIVE (NEGATIVE)
[2025-06-03] MEDS ORDERED: Reglan 10 MG/2 ML ONE (23:28)
[2025-06-03] MEDS: Reglan 10 MG/2 ML IV ONE (23:29)
--- NOTE | 2025-06-04 01:46 | PCM.HP ---
History of Present Illness - Chief Complaint Chief Complaint: UTI History of Present Illness: is a 39 year old female from home with past medical history of hypertension, depression, arrhythmia, uterine fibroids, renal cysts, ovarian cyst presented with epigastric pain, nausea and vomiting since yesterday. Patient reports that the symptoms have been present constantly and she has had inability to tolerate oral intake. Pain is described as 6-7 out of 10 in intensity, nonradiating, no identified alleviating or exacerbating factors, aching. She presented to the ED tachycardic, hypertensive and dry heaving. Was given IV fluid hydration along with antiemetic which has helped her symptoms somewhat. ER evaluation was notable for white blood cell count of 14.0, potassium 3.4, total bilirubin of 1.8, anion gap metabolic acidosis and a UA suggestive of UTI. Patient was given a dose of ceftriaxone initially. She denies dysuria or any other urinary symptoms. Per ED physician, preliminary report of CT abdomen pelvis showed no acute abnormality aside from stable small right renal cyst. - Review of Systems Constitutional: Lethargy, Malaise Eyes: No Symptoms Ears, Nose, & Throat: No Symptoms Respiratory: No Symptoms Cardiac: No Symptoms Abdominal/Gastrointestinal: Abdominal Pain, Nausea, Appetite Changes Genitourinary Symptoms: No Symptoms Musculoskeletal: No Symptoms Skin: No Symptoms Neurological: No Symptoms Psychological: No Symptoms Endocrine: No Symptoms Hematologic/Lymphatic: No Symptoms Immunological/Allergic: No Symptoms All Other Systems: Reviewed and Negative Medications & Allergies Home Medications: Home Medication List Metoprolol Tartrate [Lopressor] 50 mg PO DAILY 11/23/21 [History Confirmed 06/03/25] Venlafaxine HCl [Effexor Xr] 150 mg PO DAILY 11/23/21 [History Confirmed 06/03/25] Estradiol [Vivelle-Dot] 1 patch TOP 2XW 05/10/24 [History Confirmed 06/03/25] Amlodipine Besylate [Norvasc] 10 mg PO DAILY 11/14/24 [History Confirmed 06/03/25] Ondansetron ODT 4 MG [Zofran Odt 4 mg] 4 mg PO Q6H PRN PRN #10 tablet 11/14/24 [Rx Confirmed 06/03/25] Ramelteon [Rozerem] 8 mg PO HS 11/14/24 [History Confirmed 06/03/25] Aspirin EC 81 mg [Ecotrin 81 mg] 81 mg PO DAILY 05/14/25 [History Confirmed 06/03/25] Black Cohosh [Black Cohosh Root] 540 mg PO DAILY 05/14/25 [History Confirmed 06/03/25] Mirabegron [Myrbetriq] 25 mg PO DAILY 05/14/25 [History Confirmed 06/03/25] Allergies/Adverse Reactions: Allergies Allergy/AdvReac Type Severity Reaction Status Date / Time prednisone AdvReac Verified 05/14/25 06:44 - Past Medical History Past Medical History: Yes Neurological History: No Pertinent History ENT History: No Pertinent History Cardiac History: Arrhythmia, Hypertension Respiratory History: No Pertinent History Endocrine Medical History: No Pertinent History Musculoskelatal History: Fractures, Other GI Medical History: No Pertinent History History: No Pertinent History Pyscho-Social History: Anxiety, Depression Reproductive Disorders: Abnormal Uterine Bleeding, Fibroids Comment: SX HX: LEFT ANKLE RECONSTRUCTION DUE TO FRACTURE - NO HARDWARE - USED DISPOSABLE SCREW 2014, LEFT WRIST GANGLION CYST REMOVAL AT AGE 20, "FEMALE SURGERIES" - Female History Hx Last Menstrual Period: hyster Are you now?: No - Past Surgical History Past Surgical History: Yes Neuro Surgical History: No Pertinent History Cardiac History: No Pertinent History Respiratory Surgery: No Pertinent History GI Surgical History: No Pertinent History Genitourinary Surgical Hx: No Pertinent History Musculskeletal Surgical Hx: Orthopedic Surgery Female Surgical History: Hysterectomy, Dilation & Curettage, Tubal Ligation Other Surgical History: L wrist, L ankle, IUD placed and removed. failed ablation. Significant Family History: no pertinent family hx - Social History Smoking Status: Current every day smoker How long have you smoked: quitting Exposure to second hand smoke: Yes Alcohol: Weekly Drug Use: none - Social Determinants of Health Will the patient participate in the screening: Yes Do you worry about a steady place to live?: No Do you have any problems with any of the following?: No known problems In the past 12 months,have you had to go without utilities?: No Have you or anyone in your house had to go without enough: No Transportation Issues: No Has anyone in your support network made you feel unsafe?: No Does the patient want assistance with any of the above?: No - Physical Exam Vital Signs: Vital Signs - 24 hr Temp Pulse Resp BP BP Pulse Ox 06/04/25 01:39 97 06/04/25 01:00 97 H 18 132/78 99 06/04/25 00:57 98 H 18 120/70 99 06/04/25 00:00 109 H 20 173/106 98 06/03/25 23:31 122 H 20 170/111 96 06/03/25 23:00 110 H 19 136/92 99 06/03/25 22:30 108 H 23 128/85 98 06/03/25 22:00 126 H 25 H 137/90 97 06/03/25 21:30 110 H 23 135/90 99 06/03/25 21:00 117 H 18 131/91 98 06/03/25 20:40 108 H 22 148/101 100 06/03/25 20:00 112 H 18 156/112 99 06/03/25 19:33 118 H 18 158/117 100 06/03/25 19:29 97.6 F 71 18 168/123 97 General Appearance: no apparent distress, alert Neurologic Exam: alert, oriented x 3, cooperative, normal mood/affect Eye Exam: PERRL/EOMI, eyes nml inspection Ears, Nose, Throat Exam: moist mucous membranes Neck Exam: normal inspection, non-tender, supple Respiratory Exam: normal breath sounds, lungs clear Cardiovascular Exam: regular rate/rhythm, normal heart sounds Gastrointestinal/Abdomen Exam: soft, normal bowel sounds, tenderness Pelvic Exam: not done Rectal Exam: not done Skin Exam: normal color Results - Labs Lab/Micro Results: Lab Results-Last 24 Hours 06/03/25 06/03/25 06/03/25 Range/Units 19:50 19:50 19:50 WBC 14.0 H (3.98-10.04) x10^3/uL RBC 4.46 (3.93-5.22) x10^6/uL Hgb 15.6 (11.2-15.7) g/dL Hct 43.9 (34.1-44.9) % MCV 98.4 H (79.4-94.8) fL MCH 35.0 H (25.6-32.2) pg MCHC 35.5 (32.2-35.5) g/dL RDW 14.6 H (11.7-14.4) % Plt Count 289 (182-369) x10^3/uL MPV 10.8 (9.4-12.3) fL Gran % 82.9 H (34.0-71.1) % Immature Gran % (Auto) 0.2 (0.001-0.429) % Nucleat RBC Rel Count 0.0 (0.00-0.2) % Eos # (Auto) 0 L (0.04-0.36) x10^3/uL Immature Gran # (Auto) 0.03 (0.001-0.031) x10^3u/L Absolute Lymphs (auto) 1.44 (1.18-3.74) x10^3/uL Absolute Monos (auto) 0.91 H (0.24-0.86) x10^3/uL Absolute Nucleated RBC 0.00 (0.00-0.012) x10^3u/L Lymphocytes % 10.3 L (19.3-51.7) % Monocytes % 6.5 (4.7-12.5) % Eosinophils % 0.0 L (0.7-5.8) % Basophils % 0.1 (0.1-1.2) % Absolute Granulocytes 11.64 H (1.56-6.13) x10^3/uL Basophils # 0.01 (0.01-0.08) x10^3/uL Sodium 137 (135-145) mmol/L Potassium 3.4 L (3.5-5.1) mmol/L Chloride 94 L (98-107) mmol/L Carbon Dioxide 17 L (22-30) mmol/L Anion Gap 28.8 H (5-15) MEQ/L BUN 21 H (7-17) mg/dL Creatinine 0.94 (0.52-1.04) mg/dL Estimated GFR 80.2 ML/MIN Glucose 112 H (74-106) mg/dL Lactic Acid (0.4-2.0) Calcium 11.3 H (8.4-10.2) mg/dL Total Bilirubin 1.80 H (0.2-1.3) mg/dL AST 41 H (14-36) U/L ALT 18 (0-35) U/L Alkaline Phosphatase 102 (38-126) U/L Troponin I 0.016 (0.000-0.033) ng/mL Serum Total Protein 9.8 H (6.3-8.2) g/dL Albumin 5.7 H (3.5-5.0) g/dL Lipase 98 (23-300) U/L Urine Color (Yellow) Urine Appearance (Clear) Urine pH (4.6-8.0) Ur Specific [place] (1.005-1.030) Urine Protein (Negative) Urine Glucose (UA) (Negative) mg/dL Urine Ketones (Negative) Urine Blood (Negative) Urine Nitrite (Negative) Urine Bilirubin (Negative) Urine Urobilinogen (0.2) mg/dL Ur Leukocyte Esterase (Negative) U Hyaline Cast (Auto) (0-2) /LPF Urine Microscopic RBC (0-5) /HPF Urine Microscopic WBC (0-5) /HPF Ur Epithelial Cells (None Seen) /HPF Urine Bacteria (None Seen) /HPF Urine Culture Reflexed (NO) Influenza Type A Ag (NEGATIVE) Influenza Type B Ag (NEGATIVE) RSV (PCR) (NEGATIVE) SARS-CoV-2 (PCR) (NEGATIVE) 06/03/25 06/03/25 06/03/25 Range/Units 19:54 22:45 22:45 WBC (3.98-10.04) x10^3/uL RBC (3.93-5.22) x10^6/uL Hgb (11.2-15.7) g/dL Hct (34.1-44.9) % MCV (79.4-94.8) fL MCH (25.6-32.2) pg MCHC (32.2-35.5) g/dL RDW (11.7-14.4) % Plt Count (182-369) x10^3/uL MPV (9.4-12.3) fL Gran % (34.0-71.1) % Immature Gran % (Auto) (0.001-0.429) % Nucleat RBC Rel Count (0.00-0.2) % Eos # (Auto) (0.04-0.36) x10^3/uL Immature Gran # (Auto) (0.001-0.031) x10^3u/L Absolute Lymphs (auto) (1.18-3.74) x10^3/uL Absolute Monos (auto) (0.24-0.86) x10^3/uL Absolute Nucleated RBC (0.00-0.012) x10^3u/L Lymphocytes % (19.3-51.7) % Monocytes % (4.7-12.5) % Eosinophils % (0.7-5.8) % Basophils % (0.1-1.2) % Absolute Granulocytes (1.56-6.13) x10^3/uL Basophils # (0.01-0.08) x10^3/uL Sodium (135-145) mmol/L Potassium (3.5-5.1) mmol/L Chloride (98-107) mmol/L Carbon Dioxide (22-30) mmol/L Anion Gap (5-15) MEQ/L BUN (7-17) mg/dL Creatinine (0.52-1.04) mg/dL Estimated GFR ML/MIN Glucose (74-106) mg/dL Lactic Acid 1.5 (0.4-2.0) Calcium (8.4-10.2) mg/dL Total Bilirubin (0.2-1.3) mg/dL AST (14-36) U/L ALT (0-35) U/L Alkaline Phosphatase (38-126) U/L Troponin I (0.000-0.033) ng/mL Serum Total Protein (6.3-8.2) g/dL Albumin (3.5-5.0) g/dL Lipase (23-300) U/L Urine Color Yellow (Yellow) Urine Appearance Clear (Clear) Urine pH 7.5 (4.6-8.0) Ur Specific [place] >=1.030 A (1.005-1.030) Urine Protein Trace A (Negative) Urine Glucose (UA) Negative (Negative) mg/dL Urine Ketones 80 A (Negative) Urine Blood Negative (Negative) Urine Nitrite Negative (Negative) Urine Bilirubin Negative (Negative) Urine Urobilinogen 1.0 A (0.2) mg/dL Ur Leukocyte Esterase Small A (Negative) U Hyaline Cast (Auto) 3-5 A (0-2) /LPF Urine Microscopic RBC 0-2 (0-5) /HPF Urine Microscopic WBC 11-20 A (0-5) /HPF Ur Epithelial Cells None Seen (None Seen) /HPF Urine Bacteria None Seen (None Seen) /HPF Urine Culture Reflexed YES (NO) Influenza Type A Ag NEGATIVE (NEGATIVE) Influenza Type B Ag NEGATIVE (NEGATIVE) RSV (PCR) NEGATIVE (NEGATIVE) SARS-CoV-2 (PCR) NEGATIVE (NEGATIVE) 06/03/25 Range/Units 22:55 WBC (3.98-10.04) x10^3/uL RBC (3.93-5.22) x10^6/uL Hgb (11.2-15.7) g/dL Hct (34.1-44.9) % MCV (79.4-94.8) fL MCH (25.6-32.2) pg MCHC (32.2-35.5) g/dL RDW (11.7-14.4) % Plt Count (182-369) x10^3/uL MPV (9.4-12.3) fL Gran % (34.0-71.1) % Immature Gran % (Auto) (0.001-0.429) % Nucleat RBC Rel Count (0.00-0.2) % Eos # (Auto) (0.04-0.36) x10^3/uL Immature Gran # (Auto) (0.001-0.031) x10^3u/L Absolute Lymphs (auto) (1.18-3.74) x10^3/uL Absolute Monos (auto) (0.24-0.86) x10^3/uL Absolute Nucleated RBC (0.00-0.012) x10^3u/L Lymphocytes % (19.3-51.7) % Monocytes % (4.7-12.5) % Eosinophils % (0.7-5.8) % Basophils % (0.1-1.2) % Absolute Granulocytes (1.56-6.13) x10^3/uL Basophils # (0.01-0.08) x10^3/uL Sodium (135-145) mmol/L Potassium (3.5-5.1) mmol/L Chloride (98-107) mmol/L Carbon Dioxide (22-30) mmol/L Anion Gap (5-15) MEQ/L BUN (7-17) mg/dL Creatinine (0.52-1.04) mg/dL Estimated GFR ML/MIN Glucose (74-106) mg/dL Lactic Acid (0.4-2.0) Calcium (8.4-10.2) mg/dL Total Bilirubin (0.2-1.3) mg/dL AST (14-36) U/L ALT (0-35) U/L Alkaline Phosphatase (38-126) U/L Troponin I 0.017 (0.000-0.033) ng/mL Serum Total Protein (6.3-8.2) g/dL Albumin (3.5-5.0) g/dL Lipase (23-300) U/L Urine Color (Yellow) Urine Appearance (Clear) Urine pH (4.6-8.0) Ur Specific [place] (1.005-1.030) Urine Protein (Negative) Urine Glucose (UA) (Negative) mg/dL Urine Ketones (Negative) Urine Blood (Negative) Urine Nitrite (Negative) Urine Bilirubin (Negative) Urine Urobilinogen (0.2) mg/dL Ur Leukocyte Esterase (Negative) U Hyaline Cast (Auto) (0-2) /LPF Urine Microscopic RBC (0-5) /HPF Urine Microscopic WBC (0-5) /HPF Ur Epithelial Cells (None Seen) /HPF Urine Bacteria (None Seen) /HPF Urine Culture Reflexed (NO) Influenza Type A Ag (NEGATIVE) Influenza Type B Ag (NEGATIVE) RSV (PCR) (NEGATIVE) SARS-CoV-2 (PCR) (NEGATIVE) - Radiology Impressions Radiology Exams & Impressions: Radiology Procedures Category Date Time Status ABDOMEN AND PELVIS W CONTRAST [CT] Stat Exams 06/03/25 19:55 Taken Assessment/Plan (1) Epigastric abdominal pain Current Visit: Yes Status: Acute Assessment & Plan: Pain control IV fluids Antiemetic PRN Start PPI Code(s): R10.13 - EPIGASTRIC PAIN (2) High anion gap metabolic acidosis Current Visit: Yes Status: Acute Assessment & Plan: Hydrate with LR Lactic acid WNL Repeat labs in AM Monitor renal fucntion and urine output Check for ketones, CK, serum osm, salicylate level Code(s): E87.29 - OTHER ACIDOSIS (3) Hypokalemia Current Visit: Yes Status: Acute Assessment & Plan: Replete intravenously Check magnesium level and replete if there is a deficiency Code(s): E87.6 - HYPOKALEMIA (4) Total bilirubin, elevated Current Visit: Yes Status: Acute Assessment & Plan: Hepatic fucntion panel with AM labs, Distinguish conjugated vs unconjugated Code(s): R17 - UNSPECIFIED JAUNDICE (5) Intractable nausea and vomiting Current Visit: Yes Status: Acute Assessment & Plan: Continue supportive care with anti-emetic and IV fluids Keep NPO for now and advance diet as tolerated Code(s): R11.2 - NAUSEA WITH VOMITING, UNSPECIFIED (6) Leukocytosis Current Visit: Yes Status: Acute Qualifiers: Leukocytosis type: unspecified Qualified Code(s): D72.829 - Elevated white blood cell count, unspecified Assessment & Plan: Treat UTI Monitor clinically Code(s): D72.829 - ELEVATED WHITE BLOOD CELL COUNT, UNSPECIFIED (7) Renal cyst, right Current Visit: Yes Status: Chronic Assessment & Plan: Stable per imaging Code(s): N28.1 - CYST OF KIDNEY, ACQUIRED (8) Asymptomatic bacteriuria Current Visit: Yes Status: Acute Assessment & Plan: Patient is asymptomatic Will not treat for UTI Code(s): R82.71 - BACTERIURIA Telemedicine Encounter - Telemedicine Encounter Telemedicine Encounter: "The entirety of this encounter was performed via Telemedicine" This visit was performed using real-time audio and video connection between my location and thepatients locationwith the assistance of a surrogateat the patients location. Written or verbal consent was obtained from the patient/guardian to perform this visit [facility] technology. Any patient questions regarding the telemedicine interaction were answered.
[2025-06-04 02:02] LABS: ETHYL ALCOHOL < 10 mg/dL (0-10)
[2025-06-04] MEDS ORDERED: NORCO 10-325 MG PO PRN (02:45)
[2025-06-04] MEDS ORDERED: MORPHINE SULFATE 2 MG INJ IV PRN (02:46)
[2025-06-04] MEDS: Zofran 4 MG/2 ML VIAL IV PRN (03:15)
[2025-06-04] MEDS: Lactated Ringers 1,000 ML IV SCH (03:16)
[2025-06-04] MEDS: POTASSIUM CHLORIDE 20 mEq IN WATER 100ML 20 MEQ/100 ML BAG IV SCH (03:57)
[2025-06-04 05:51] LABS: BASOPHIL % 0.1 % (0.1-1.2); Basophil (Absolute #) 0.01 x10^3/uL (0.01-0.08); Eosinophil (Absolute #) 0.01 x10^3/uL (0.04-0.36); Hematocrit 39.1 % (34.1-44.9); Hemoglobin 13.0 g/dL (11.2-15.7); IMMATURE GRAN # 0.04 x10^3u/L (0.001-0.031); IMMATURE GRAN % 0.5 % (0.001-0.429); Lymphocyte (Absolute #) 1.51 x10^3/uL (1.18-3.74); Mean Corpuscular Hemoglobin 33.9 pg (25.6-32.2); Mean Corpuscular Hgb Concent. 33.2 g/dL (32.2-35.5); Monocyte (Absolute #) 0.58 x10^3/uL (0.24-0.86); NUCLEATED RBC # 0.00 x10^3u/L (0.00-0.012); NUCLEATED RBC % 0.0 % (0.00-0.2); Platelet Count 210 x10^3/uL (182-369); Red Blood Count 3.83 x10^6/uL (3.93-5.22); White Blood Count 7.9 x10^3/uL (3.98-10.04)
[2025-06-04 06:16] LABS: Calcium 9.4 mg/dL (8.4-10.2); Carbon Dioxide 19.0 mmol/L (22-30); Creatinine 1 0.68 mg/dL (0.52-1.04); EST GLOMERULAR FILTRATION RATE 115.0 ML/MIN; Glucose 92.0 mg/dL (74-106); SGOT/AST 34.0 U/L (14-36); SGPT/ALT 14.0 U/L (0-35); Total Protein 7.2 g/dL (6.3-8.2)
[2025-06-04 06:20] LABS: Potassium 3.0 mmol/L (3.5-5.1)
[2025-06-04] MEDS: Sodium Chloride 0.9% W/ 20 mEq KCl/LITER 1,000 ML IV SCH (08:18)
--- NOTE | 2025-06-04 08:54 | XRAY ---
Indication: Pain. Multiple contiguous axial images obtained through the abdomen and pelvis using 80 cc Isovue 370 contrast. Comparison: March 14, 2024. Lung bases demonstrates new 1.5 cm left lower lobe calcified granuloma. No infiltrate or effusion. Heart not enlarged. Noncontrasted stomach and bowel loops appear nonobstructed with normal appendix. Stable 1.8 cm right renal cyst and hysterectomy. No free fluid/air. Remaining liver, gallbladder, pancreas, spleen, adrenal glands, kidneys, ureters, and bladder are unremarkable. There is now minimal aortoiliac calcifications. No AAA or pathologic retroperitoneal lymphadenopathy. Osseous structures intact. Impression: 1. Chronic findings including right renal cyst, arteriosclerotic disease, and left lower lobe calcified granuloma. 2. Remaining CT abdomen/pelvis with contrast exam is negative.
[2025-06-04] MEDS: Compazine 10 MG/2 ML IV PRN (09:20)
[2025-06-04] MEDS ORDERED: NON-FORMULARY ITEM (Venlafaxine Hcl [Effexor Xr] 150 MG Cap.Er.24h) PO SCH (10:00)
[2025-06-04] MEDS ORDERED: NON-FORMULARY ITEM (Amlodipine Besylate [Norvasc] 10 MG Tablet) PO SCH (10:00)
[2025-06-04] MEDS ORDERED: ROCEPHIN 1 GM / 100 ML NaCl 1 GM/100 ML IVPB IV SCH (10:00)
[2025-06-04] MEDS: NORCO 5/325 MG PO PRN (10:32)
[2025-06-04] MEDS: NORVASC 5 MG PO SCH (10:33)
[2025-06-04] MEDS: Effexor XR 75 MG PO SCH (10:34)
[2025-06-04] MEDS: MYRBETRIQ PO SCH (10:34)
[2025-06-04] MEDS: Lopressor 50 MG PO SCH (10:34)
[2025-06-04] MEDS: Protonix 40MG Tablet PO SCH (10:34)
[2025-06-04] MEDS: Klor Con PO SCH (17:50)
[2025-06-04] MEDS: Tums EX 750 MG PO PRN (17:50)
[2025-06-04] MEDS: Ambien 10 MG PO SCH (21:05)
[2025-06-04] MEDS ORDERED: RAMELTEON 8 MG PO SCH (22:00)
[2025-06-05 04:17] VITALS: RESP 16
[2025-06-05 05:30] LABS: Hematocrit 36.2 % (34.1-44.9); Hemoglobin 12.4 g/dL (11.2-15.7); Mean Corpuscular Hemoglobin 35.2 pg (25.6-32.2); Mean Corpuscular Hgb Concent. 34.3 g/dL (32.2-35.5); Platelet Count 181 x10^3/uL (182-369); Red Blood Count 3.52 x10^6/uL (3.93-5.22); White Blood Count 6.7 x10^3/uL (3.98-10.04)
[2025-06-05 06:09] LABS: Calcium 9.4 mg/dL (8.4-10.2); Carbon Dioxide 20.0 mmol/L (22-30); Creatinine 1 0.58 mg/dL (0.52-1.04); EST GLOMERULAR FILTRATION RATE 119.5 ML/MIN; Glucose 80.0 mg/dL (74-106); Potassium 4.4 mmol/L (3.5-5.1); SGOT/AST 35.0 U/L (14-36); SGPT/ALT 16.0 U/L (0-35); Total Protein 6.5 g/dL (6.3-8.2)
[2025-06-05 09:15] LABS: Creatinine Kinase (CK), MB 2.1 ng/mL (0.0-5.3)
[2025-06-05 11:31] VITALS: BP 122/75; PULSE 64; TEMP 97.8; O2SAT 97
--- NOTE | 2025-06-05 12:26 | PCM.DS ---
Discharge Summary Date of Admission: 06/04/25 02:50 Date of Discharge: 06/05/25 Admitting Physician: ZANA GREEN MD Primary Care Provider: RAYMOND NLESON Allergies Allergies prednisone Adverse Reaction (Verified 05/14/25 06:44) excessive weight gain Hospital Summary - Hospital Course Hospital Course: Ms. Torres is a 39-year-old female with a past medical history of hypertension, depression, arrhythmia, uterine fibroids, renal cysts, and ovarian cysts who presented with acute onset epigastric pain, nausea, and vomiting since the prior day following consumption of a turkey sandwhich. Symptoms were persistent, rated 67/10, non-radiating, and not relieved or worsened by any factors. On admission she was tachycardic, hypertensive, and dry heaving. She received IV fluids and antiemetics with partial relief. Emergency department evaluation was notable for leukocytosis (WBC 14.0), hypokalemia (K 3.4), elevated total bilirubin (1.8), and anion gap metabolic acidosis. UA was initially suggestive of UTI; however, Ucult was negative and the patient denied urinary symptoms. She received one dose of ceftriaxone. CT abdomen/pelvis with contrast showed only chronic findings (right renal cyst, arteriosclerotic disease, left lower lobe calcified granuloma) with no acute abnormality. During hospitalization, electrolytes were replenished, nausea/vomiting resolved, and she tolerated a full diet. She was clinically stable and agreeable to discharge. She will be discharged home on pantoprazole 40 mg daily and ondansetron as needed. Discharge Note New Diagnosis: Gastroenteritis New Medications:Zofran/protonix Follow Up: PCP I spent 35 minutes [id number] with the patient on the day of discharge performing discharge exam, discussing hospital stay and discharge instructions with patient and caregivers, preparation of discharge records, prescriptions & referral forms and addressing any questions/concerns the patient had as documented above. - Vitals & Intake/Output Vital Signs: Vital Signs Temperature 97.8 F 06/05/25 11:30 Pulse Rate 64 06/05/25 11:30 Respiratory Rate 16 06/05/25 11:30 Blood Pressure 122/75 06/05/25 11:30 O2 Sat by Pulse Oximetry 97 06/05/25 11:30 Intake & Output: Intake & Output 06/03/25 06/04/25 06/05/25 06/06/25 11:59 11:59 11:59 11:59 Intake Total 851 3326 Output Total 700 1000 Balance 151 2326 Weight 73.3 kg 72.2 kg - Lab Result Diagrams: 06/05/25 05:12 06/05/25 05:12 Lab Results-Last 24 Hrs: Lab Results-Last 24 Hours 06/04/25 06/04/25 06/04/25 Range/Units 05:05 17:59 21:58 WBC (3.98-10.04) x10^3/uL RBC (3.93-5.22) x10^6/uL Hgb (11.2-15.7) g/dL Hct (34.1-44.9) % MCV (79.4-94.8) fL MCH (25.6-32.2) pg MCHC (32.2-35.5) g/dL RDW (11.7-14.4) % Plt Count (182-369) x10^3/uL MPV (9.4-12.3) fL Sodium (135-145) mmol/L Potassium 3.6 4.1 (3.5-5.1) mmol/L Chloride (98-107) mmol/L Carbon Dioxide (22-30) mmol/L Anion Gap (5-15) MEQ/L BUN (7-17) mg/dL Creatinine (0.52-1.04) mg/dL Estimated GFR ML/MIN Glucose (74-106) mg/dL Serum Osmolality Pending Calcium (8.4-10.2) mg/dL Magnesium (1.6-2.3) mg/dL Total Bilirubin (0.2-1.3) mg/dL AST (14-36) U/L ALT (0-35) U/L Alkaline Phosphatase (38-126) U/L CK-MB (CK-2) Mass 2.1 (0.0-5.3) ng/mL Serum Total Protein (6.3-8.2) g/dL Albumin (3.5-5.0) g/dL 3-Hydroxybutyric Acid Pending 06/05/25 06/05/25 Range/Units 05:12 05:12 WBC 6.7 (3.98-10.04) x10^3/uL RBC 3.52 L (3.93-5.22) x10^6/uL Hgb 12.4 (11.2-15.7) g/dL Hct 36.2 (34.1-44.9) % MCV 102.8 H (79.4-94.8) fL MCH 35.2 H (25.6-32.2) pg MCHC 34.3 (32.2-35.5) g/dL RDW 14.6 H (11.7-14.4) % Plt Count 181 L (182-369) x10^3/uL MPV 10.3 (9.4-12.3) fL Sodium 136 (135-145) mmol/L Potassium 4.4 (3.5-5.1) mmol/L Chloride 105 (98-107) mmol/L Carbon Dioxide 20 L (22-30) mmol/L Anion Gap 15.5 H (5-15) MEQ/L BUN 6 L (7-17) mg/dL Creatinine 0.58 (0.52-1.04) mg/dL Estimated GFR 119.5 ML/MIN Glucose 80 (74-106) mg/dL Serum Osmolality Calcium 9.4 (8.4-10.2) mg/dL Magnesium 2.0 (1.6-2.3) mg/dL Total Bilirubin 0.70 (0.2-1.3) mg/dL AST 35 (14-36) U/L ALT 16 (0-35) U/L Alkaline Phosphatase 65 (38-126) U/L CK-MB (CK-2) Mass (0.0-5.3) ng/mL Serum Total Protein 6.5 (6.3-8.2) g/dL Albumin 4.0 (3.5-5.0) g/dL 3-Hydroxybutyric Acid Micro Results-Entire Visit: Microbiology 06/03/25 19:54 Urine Culture - Final Urine, Void MIXED EDUAR; 3 OR MORE TYPES. NO PREDOMINANT ORGANISM. NO FURTHER WORKUP. PLEASE RESUBMIT IF CLINICALLY INDICATED. - Radiology Exams Ordered Rad Exams-Entire Visit: Radiology Procedures Category Date Time Status ABDOMEN AND PELVIS W CONTRAST [CT] Stat Exams 06/03/25 19:55 Completed - Procedures and Test Procedures and Tests throughout Hospitalization: Therapy Orders & Screens 06/04/25 03:31 Smoking Cessation Education ONCE Comment: Diagnosis: UTI Smoking Status: Current every day smoker How long have you smoked: quitting Have you smoked in the past 12 months: Yes Approximately how many cigarettes per day: 20 Do you dip or chew tobacco: No Discharge Exam General Appearance: no apparent distress Neurologic Exam: alert, oriented x 3, cooperative Eye Exam: PERRL Ears, Nose, Throat Exam: normal ENT inspection Neck Exam: normal inspection Respiratory Exam: normal breath sounds, lungs clear Cardiovascular Exam: regular rate/rhythm, normal heart sounds Gastrointestinal/Abdomen Exam: soft, normal bowel sounds Pelvic Exam: deferred Rectal Exam: deferred Back Exam: normal inspection Extremity Exam: normal inspection Skin Exam: normal color Final Diagnosis/Problem List - Final Discharge Diagnosis/Problem (1) Gastroenteritis Current Visit: Yes Status: Acute Assessment & Plan: Presented with abdominal pain, nausea, vomiting, leukocytosis, metabolic derangements. CT negative for acute pathology. Symptoms resolved with supportive care. Continue hydration, diet as tolerated, Zofran and protonix Code(s): K52.9 - NONINFECTIVE GASTROENTERITIS AND COLITIS, UNSPECIFIED (2) Asymptomatic bacteriuria Current Visit: Yes Status: Acute Assessment & Plan: Ucult negative -No treatment indicated. Code(s): R82.71 - BACTERIURIA (3) Epigastric abdominal pain Current Visit: Yes Status: Acute Assessment & Plan: see gastroenteritis Code(s): R10.13 - EPIGASTRIC PAIN (4) High anion gap metabolic acidosis Current Visit: Yes Status: Acute Assessment & Plan: Secondary to volume depletion/gastroenteritis. Corrected with IV fluids. Monitor outpatient; return if recurrent vomiting, confusion, or tachypnea. Code(s): E87.29 - OTHER ACIDOSIS (5) Hypokalemia Current Visit: Yes Status: Acute Assessment & Plan: Resolved Code(s): E87.6 - HYPOKALEMIA (6) Intractable nausea and vomiting Current Visit: Yes Status: Acute Assessment & Plan: Resolved with antiemetics and hydration. Discharge with ondansetron PRN. Tolerating oral diet. Code(s): R11.2 - NAUSEA WITH VOMITING, UNSPECIFIED (7) Leukocytosis Current Visit: Yes Status: Acute Assessment & Plan: Resolved Likely stress response/volume depletion. No infection identified; afebrile, clinically improved. No antibiotics required beyond initial ED dose. Code(s): D72.829 - ELEVATED WHITE BLOOD CELL COUNT, UNSPECIFIED (8) Total bilirubin, elevated Current Visit: Yes Status: Acute Assessment & Plan: Resolved Code(s): R17 - UNSPECIFIED JAUNDICE (9) Renal cyst, right Current Visit: Yes Status: Chronic Assessment & Plan: Stable, incidental on imaging. No intervention required. Code(s): N28.1 - CYST OF KIDNEY, ACQUIRED - Discharge Discharge Date: 06/05/25 Disposition: Home, Self-Care Condition: Stable Prescriptions: New PANTOPRAZOLE 40 mg Tablet [Protonix 40MG Tablet] 40 mg PO DAILY 14 Days #14 tablet Continue Metoprolol Tartrate [Lopressor] 50 mg PO DAILY Venlafaxine HCl [Effexor Xr] 150 mg PO DAILY Estradiol [Vivelle-Dot] 1 patch TOP 2XW Ramelteon [Rozerem] 8 mg PO HS Amlodipine Besylate [Norvasc] 10 mg PO DAILY Mirabegron [Myrbetriq] 25 mg PO DAILY Aspirin EC 81 mg [Ecotrin 81 mg] 81 mg PO DAILY Black Cohosh [Black Cohosh Root] 540 mg PO DAILY Trazodone HCl 100 mg PO Ondansetron ODT 4 MG [Zofran Odt 4 mg] 4 mg PO Q6H PRN PRN #10 tablet PRN Reason: Vomiting Follow up with: RAYMOND NELSON NP [Primary Care Provider, [facility]]
[2025-06-10 19:13] LABS: Osmolality-Se/Pl 282.0 mOsmol/kg (275-295)
== END 2025-06-05 13:30 | disposition home or self-care (01) ==
LOC: ED 19:20 → MED SURG 06-04 02:50
PROVIDERS: ADMIT Hospitalist; ATTEND Hospitalist
DX: K52.9 Noninfective gastroenteritis and colitis, unspecified (principal); R82.71 Bacteriuria; R10.13 Epigastric pain; E87.29 Other acidosis; E87.6 Hypokalemia; R11.2 Nausea with vomiting, unspecified; D72.829 Elevated white blood cell count, unspecified; R17 Unspecified jaundice; N28.1 Cyst of kidney, acquired; I10 Essential (primary) hypertension; F17.200 Nicotine dependence, unspecified, uncomplicated; Z79.899 Other long term (current) drug therapy
CPT/HCPCS: 36415; 74177; 80053; 80143; 80179; 81001; 82010; 82077; 82248; 82533; 83605; 83690; 83735; 83930; 84132; 84484; 85025; 85027; 87086; 87637; 93005; 96360; 96361; 96365; 96375; 99285; Q3014